=== PATIENT | female | born 1965 | race Caucasian/White ===

== ENCOUNTER 2024-11-19 13:15 | Outpatient (AMB) | payer MEDICARE, SELFPAY ==
--- NOTE | 2024-11-19 13:19 | A.OFFVIS_ITS ---
Vital Signs 11/19/24 13:20 Height 5 ft 5 in Weight 157 lb 8 oz BMI 26.2 BP 122/66 Blood Pressure Location Rt brachial Position Sitting Pulse 87 Pulse Source Pulse Oximeter Pulse Oximetry (%) 98 Oxygen Delivery Method Room Air Intake Visit Reasons: Lupus Allergies No Known Allergies Allergy (Verified 11/19/24 13:22) HPI HPI Lupus: Details: HX of uterine cancer s/p upper vaginectomy+hysterectomy, chemo over a year ago. She has been HPV positive in the past but reports that most recent Pap tests of the vagina have been negative. 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 Mammogram 02/2024 Colonscopy 02/2024 She feels well. Denies fevers, rash, Raynaud's, dyspnea, pleurisy, urinary symptoms, joint symptoms. She recently was experiencing GERD symptoms and has been on a regimen prescribed by PCP with benefit. She will be seeing GI for EGD. She was recently diagnosed with osteopenia and has been referred to a specialist. [facility] Medical History (Updated 11/19/24 @ 14:11 by Jesus Manuel Calvillo MD) Cancer Lupus (systemic lupus erythematosus) Surgical History Hx of hysterectomy Hx of tonsillectomy Review of Systems Const All systems reviewed & are unremarkable except as noted in HPI and below Physical Exam Vital Signs: Last Vital Signs Pulse 87 11/19/24 13:20 BP 122/66 11/19/24 13:20 Pulse Ox 98 11/19/24 13:20 Oxygen Delivery Method Room Air 11/19/24 13:20 BMI result Body Mass Index 26.2 Const Other: General: Comfortable CVS: RRR Respiratory: clear to auscultation bilaterally. Good respiratory effort Skin: No lesions seen MSK: No tenderness. No synovitis. Good range of upper extremities and lower extremities. Assessment & Plan Assessment & Plan (1) Lupus (systemic lupus erythematosus): Comment: Previously treated with Imuran, which was discontinued when she was diagnosed with uterine cancer. Subsequently she had upper vaginectomy and hysterectomy status post chemotherapy. She is doing well. Code(s): M32.9 - Systemic lupus erythematosus, unspecified Category: Medical Plan: Labs for disease monitoring ordered Return to clinic in 3 months To discuss importance of having a regular exercise routine. I also discussed adding weight-bearing exercises to her exercise routine as she has a new diagnosis of osteopenia. I am requesting medical records [facility] Orders: Orders Complete Blood Count Auto Diff Today Z79.60 - exterminator (current) use of unspecified immunomodulators and immunosuppressants UA CC w/rflx Micro + Cult Today M32.9 - Systemic lupus erythematosus, unspecified Creatinine Today Z79.60 - residential (current) use of unspecified immunomodulators and immunosuppressants Alanine Aminotransferase Today Z79.60 - residential (current) use of unspecified immunomodulators and immunosuppressants Aspartate Amino Transferase Today Z79.60 - exterminator (current) use of unspecified immunomodulators and immunosuppressants ANDRADE Reflex Titer and Pattern Today M32.9 - Systemic lupus erythematosus, unspecified Anti DNA DS Antibody Today M32.9 - Systemic lupus erythematosus, unspecified Anti Extractable Nuclear Ag Today M32.9 - Systemic lupus erythematosus, unspecified C Reactive Protein Today M32.9 - Systemic lupus erythematosus, unspecified Erythrocyte Sedimentation Rate Today M32.9 - Systemic lupus erythematosus, unspecified Protein Creatinine Ratio, Ur Today M32.9 - Systemic lupus erythematosus, unspecified Complement C3 Today M32.9 - Systemic lupus erythematosus, unspecified Complement C4 Today M32.9 - Systemic lupus erythematosus, unspecified Coding Level of Care Code Est Pt Level 4 (42209) Complex EM visit Add On G2211 Diagnoses Lupus (systemic lupus erythematosus) M32.9
[2024-11-19 13:20] VITALS: BP 122/66; PULSE 87; O2SAT 98; BMI 26.2
== END 2024-11-19 13:58 | disposition home or self-care (01) ==
PROVIDERS: Visit Provider Internal Medicine Rheumatology
DX: M32.9 Systemic lupus erythematosus, unspecified (principal)
CPT/HCPCS: 99214; G2211

== ENCOUNTER 2024-11-19 13:15 | Outpatient (REF) | payer MEDICARE, SELFPAY ==
[2024-11-19 18:00] LABS: MANUAL DIFF FLAG NO
[2024-11-19 18:07] LABS: Basophils Percent Auto 0.7 % (0-2); Eosinophils Absolute Auto 0.6 X10*3/uL (0.0-0.4); Eosinophils Percent Auto 11.2 % (0-4); Hematocrit 39.5 % (37.0-47.0); Hemoglobin 13.3 g/dl (12.0-16.0); Imm Gran Abs Auto 0.07 X10*3/uL (0.00-0.03); Imm Gran Pct Auto 1.3 % (0.0-0.4); Lymphocytes Absolute Auto 1.5 X10*3/uL (1.2-4.9); Lymphocytes Percent Auto 28.3 % (20-40); Mean Corpuscular HGB Conc 33.7 g/dl (31.0-35.0); Mean Corpuscular Hemoglobin 31.4 pg (27.0-33.0); Mean Corpuscular Volume 93.2 fL (80.0-98.0); Mean Platelet Volume 10.9 fL (9.4-12.3); Monocytes Absolute Auto 0.6 X10*3/uL (0.1-1.2); Monocytes Percent Auto 10.3 % (2-11); Neutrophils Absolute Auto 2.6 x10*3/uL (2.0-8.3); Neutrophils Percent Auto 48.2 % (45-73); Platelet Count 284 X10*3/uL (160-400); Red Blood Count 4.24 X10*6/uL (4.20-5.50); Red Cell Distribution Width 12.8 % (11.0-16.0); White Blood Count 5.3 X10*3/uL (4.8-10.8)
[2024-11-19 18:18] LABS: Appearance Urine Clear; Color Urine Dark Yellow; Glucose Urine UA Negative (Negative); Leukocyte Esterase Urine Trace (Negative); Nitrite Urine Negative (Negative); Specific Gravity - Urine >= 1.030 (1.005-1.025); UMIC TRIGGER UACC YES; Urine Blood Negative (Negative); Urine Ketones Trace mg/dL (Negative); Urine Protein Negative (Neg-Trace)
[2024-11-19 18:21] LABS: Bacteria Urine None Seen (None Seen); Hyaline Casts Urine 0-2 /LPF (0-2); RBC Urine 0-2 /HPF (0-2); Squamous Epithelial Cell Urine 0-2 /HPF (0-2); WBC Urine 0-5 /HPF (0-5)
[2024-11-19 18:31] LABS: Alanine Aminotransferase 37 U/L (0-31); Aspartate Amino Transferase 37 U/L (5-31); C Reactive Protein < 0.10 mg/dL (< or = 0.50); Estimated Glomerular Filt Rate > 60
[2024-11-19 18:43] LABS: Creatinine Urine 235.78 mg/dL; Protein/Creatinine Ratio, Ur 0.07 (<0.2); Total Protein Urine Random 16 mg/dL (<12)
[2024-11-19 19:24] LABS: Erythrocyte Sedimentation Rate 7 MM/HR (0-20)
[2024-11-20 20:09] LABS: Complement C3 136 mg/dL (83-193)
[2024-11-22 15:39] LABS: Anti Nuclear Antibody Pattern Nuclear, Speckled; Anti Nuclear Antibody Screen POSITIVE (NEGATIVE)
[2024-11-22 17:28] LABS: Anti DNA DS Antibody <1 IU/mL; SM/Ribonucleoprotein Ab <1.0 NEG AI (<1.0 NEG); Smith Protein <1.0 NEG AI (<1.0 NEG)
== END 2024-11-19 13:16 | disposition home or self-care (01) ==
LOC: HO.HKASLDS 13:15
PROVIDERS: Visit Provider Internal Medicine Rheumatology
DX: M32.9 Systemic lupus erythematosus, unspecified (principal); Z85.42 Personal history of malignant neoplasm of other parts of uterus; Z90.710 Acquired absence of both cervix and uterus; Z92.21 Personal history of antineoplastic chemotherapy
CPT/HCPCS: 36415; 81001; 82565; 82570; 84156; 84450; 84460; 85025; 85652; 86038; 86039; 86140; 86160; 86225; 86235; 99212

== ENCOUNTER 2025-02-18 13:02 | Outpatient (REF) | payer MEDICARE, SELFPAY ==
--- OUTSIDE RECORDS SUMMARY | 2025-02-18 17:10 | XMS_ITS | Encounter Summary ---
Author Organization [facility] Address [address] [place] [address] Care Team Providers Care Steward/Stewardess Room Name Role Phone Margy Martinez Primary Care Provider [phone]- [phone] Ruth Diaz MD Unavailable Genesis Traore RN Unavailable Encounter Details Date Type Department Care Team (Late st Contact Info) Description 04/03/2023 Scanned Document [facility] Radiation Oncology [address] [place] [phone] Marcin Avila MD [address] [place] [phone] Social History Tobacco Use Types Packs/Day [...] Description 03/17/2025 1:40 PM EDT Office Visit [facility] Division of Gynecologic Oncology in [place] 85 [facility] [address]05 [place] [address] Martina Nelson MD [address] [facility] [place] [address] [place] [address] documented as of this encounter Visit Diagnoses Not on filedocumented in this encounter Care Teams Steward/Stewardess Room Relationship Specialty Start Date End Date Margy Martinez PA PCP - General 02/15/21 Ruth Diaz MD [address] [place] [address] Obstetrics and Gynecology 12/05/22 Genesis Traore, CELIA 85 [facility] [address] [place] [address] Oncology Nurse Navigator Medical Oncology 02/17/23 Jesus Manuel Calvillo Clinician Rheumatology 12/06/22 documented as of this encounter
--- OUTSIDE RECORDS SUMMARY | 2025-02-18 17:10 | XMS_ITS | Encounter Summary ---
Author Organization [facility] Address [address] [place] [address] Care Team Providers Care Rabble Furnace Tender Name Role Phone Margy Martinez Primary Care Provider [phone]- [phone] Ruth Diaz MD Unavailable Genesis Traore RN Unavailable Encounter Details Date Type Department Care Team (Late st Contact Info) Description 05/01/2023 Scanned Document [facility] Radiation Oncology [address] [place] [phone] Marcin Avila MD [address] [place] [phone] Social History Tobacco Use Types Packs/Day [...] 1:40 PM EDT Office Visit [facility] Division of Gynecologic Oncology in [place] 85 [facility] [address] [place] [address] Martina Nelson MD 85 [facility] 7[address] [place] [address] documented as of this encounter Visit Diagnoses Not on filedocumented in this encounter Care Teams Rabble Furnace Tender Relationship Specialty Start Date End Date Margy Martinez PA PCP - General 02/15/21 Ruth Diaz MD [address] [place] [address] Obstetrics and Gynecology 12/05/22 Genesis Traore, CELIA 85 [facility] [address] [place] [address] Oncology Nurse Navigator Medical Oncology 02/17/23 Jesus Manuel Calvillo Clinician Rheumatology 12/06/22 documented as of this encounter
--- OUTSIDE RECORDS SUMMARY | 2025-02-18 17:10 | XMS_ITS | Clinical Summary ---
Author Organization [facility] Address [address] [place] [address] Care Team Providers Care Dough Sheeter Name Role Phone Margy Martinez NP Primary Care Provider [phone] Allergies Active Allergy Reactions Criticality Noted Date [...] (one) time each day. 020 Active omega 4-nkm-wpn-fish oil 1,000 mg (120 mg-180 mg) capsule [...] other organ involvement, unspecified SLE type (CMS/HCC) ([facility]),Sjogren's syndrome with keratoconjunctivitis sicca ([facility]) Take 1 tablet (50 mg total) by mouth 1 (one) time each day. 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
--- OUTSIDE RECORDS SUMMARY | 2025-02-18 17:10 | XMS_ITS | Encounter Summary ---
Author Organization [facility] Address [address] [place] [address] Care Team Providers Care Stonecutter Hand Name Role Phone Margy Martinez Primary Care Provider [phone]- [phone] Ruth Diaz MD Unavailable Genesis Traore RN Unavailable Encounter Details Date Type Department Care Team (Late st Contact Info) Description 04/17/2023 Scanned Document [facility] Radiation Oncology [address] [place] [phone] Marcin Avila MD [address] [place] [phone] Social History Tobacco Use Types Packs/Day [...] Description 03/17/2025 1:40 PM EDT Office Visit [facility] Division of Gynecologic Oncology in [place] 85 [facility] 705 [place] [address] Martina Nelson MD 85 [facility] [address] [place] [address] documented as of this encounter Visit Diagnoses Not on filedocumented in this encounter Care Teams Stonecutter Hand Relationship Specialty Start Date End Date Margy Martinez PA PCP - General 02/15/21 Ruth Diaz MD [address] [place] [address] Obstetrics and Gynecology 12/05/22 Genesis Traore, CELIA 85 [facility] Ja [address] [place] [address] Oncology Nurse Navigator Medical Oncology 02/17/23 Jesus Manuel Calvillo Clinician Rheumatology 12/06/22 documented as of this encounter
--- OUTSIDE RECORDS SUMMARY | 2025-02-18 17:10 | XMS_ITS | Encounter Summary ---
Author Organization [facility] Address [address] [place] [address] Care Team Providers Care Automotive Heavy Mechanic Name Role Phone Margy Martinez Primary Care Provider [phone]- [phone] Ruth Diaz MD Unavailable [phone] Genesis Traore RN Unavailable Reason for Visit * Reason Comments Appointment Encounter Details Date Type Department Care Team (Late st Contact Info) Description 12/30/2022 Telephone [facility] [place] 85 [facility] [address] [place] [address] Provider, Generic Appointment Social History [...] Description 03/17/2025 1:40 PM EDT Office Visit [facility] Division of Gynecologic Oncology in [place] 85 [facility] [address] [place] [phone] Chris Nelson MD 85 [facility] [address] [place] [address] documented as of this encounter Visit Diagnoses Not on filedocumented in this encounter Care Teams Automotive Heavy Mechanic Relationship Specialty Start Date End Date Margy Martinez PA PCP - General 02/15/21 Ruth Diaz MD [address] [place] [address] Obstetrics and Gynecology 12/05/22 Genesis Traore RN 85 [facility] Ja [address] [place] [address] Oncology Nurse Navigator Medical Oncology 02/17/23 Jesus Manuel Calvillo Clinician Rheumatology 12/06/22 documented as of this encounter
--- OUTSIDE RECORDS SUMMARY | 2025-02-18 17:10 | XMS_ITS | Encounter Summary ---
Author Organization [facility] Address [address] [place] [address] Care Team Providers Care Neighborhood Planner Name Role Phone Margy Martinez Primary Care Provider [phone] Ruth Diaz MD Unavailable Genesis Traore RN Unavailable Encounter Details Date Type Department Care Team ([facility] Contact Info) Description 02/14/2021 Prep for Surgery OBGYN IP [address] [place] [address] Jose Lawler MD 20 [facility] [address] [place] [address] Social History Tobacco Use Types Packs/Day Years [...] Description 03/17/2025 1:40 PM EDT Office Visit [facility] Division of Gynecologic Oncology in [place] 85 [facility] [address] [place] [phone] Chris Nelson MD 85 [facility] [address] [place], [place] [phone] documented as of this encounter Visit Diagnoses Not on filedocumented in this encounter Care Teams Neighborhood Planner Relationship Specialty Start Date End Date Margy Martinez PA PCP - General 02/15/21 Ruth Diaz MD [address] [place] [address] [place] [address] Obstetrics and Gynecology 12/05/22 Genesis Traore RN 85 [facility] [address] [place] [address] Oncology Nurse Navigator Medical Oncology 02/17/23 Jesus Manuel Calvillo Clinician Rheumatology 12/06/22 documented as of this encounter
--- OUTSIDE RECORDS SUMMARY | 2025-02-18 17:10 | XMS_ITS | Encounter Summary ---
Author Organization [facility] Address [address] [place] [address] Care Team Providers Care Welding Rod Coater Name Role Phone Margy Martinez Primary Care Provider [phone]- [phone] Ruth Diaz MD Unavailable Genesis Traore RN Unavailable Encounter Details Date Type Department Care Team (Late st Contact Info) Description 05/05/2023 Scanned Document [facility] Radiation Oncology [address] [place] [phone] Marcin Avila MD [address] [place] [phone] Social History Tobacco Use Types Packs/Day [...] Description 03/17/2025 1:40 PM EDT Office Visit [facility] Division of Gynecologic Oncology in [place] 85 [facility] 705 [place] [address] Martina Nelson MD 85 [facility] 705 [place] [address] documented as of this encounter Visit Diagnoses Not on filedocumented in this encounter Care Teams Welding Rod Coater Relationship Specialty Start Date End Date Margy Martinez PA PCP - General 02/15/21 Ruth Diaz MD [address] [place] [address] Obstetrics and Gynecology 12/05/22 Genesis Traore, CELIA 85 [facility] Ja [address] [place] [address] Oncology Nurse Navigator Medical Oncology 02/17/23 Jesus Manuel Calvillo Clinician Rheumatology 12/06/22 documented as of this encounter
--- OUTSIDE RECORDS SUMMARY | 2025-02-18 17:10 | XMS_ITS | Encounter Summary ---
Author Organization [facility] Address [address] [place] [address] Care Team Providers Care Electronic Scale Tester Name Role Phone Margy Martinez Primary Care Provider [phone]- [phone] Ruth Diaz MD Unavailable Genesis Traore RN Unavailable Encounter Details Date Type Department Care Team (Late st Contact Info) Description 04/11/2023 Scanned Document [facility] Radiation Oncology [address] [place] [phone] Marcin Avila MD [address] [place] [phone] Social History Tobacco Use Types Packs/Day [...] Description 03/17/2025 1:40 PM EDT Office Visit [facility] Division of Gynecologic Oncology in [place] 85 [facility] 705 [place] [address] Martina Nelson MD 85 [facility] 705 [place] [address] documented as of this encounter Visit Diagnoses Not on filedocumented in this encounter Care Teams Electronic Scale Tester Relationship Specialty Start Date End Date Margy Martinez PA PCP - General 02/15/21 Ruth Diaz MD [address] [place] [address] Obstetrics and Gynecology 12/05/22 Genesis Traore, CELIA 85 [facility] Ja [address] [place] [address] Oncology Nurse Navigator Medical Oncology 02/17/23 Jesus Manuel Calvillo Clinician Rheumatology 12/06/22 documented as of this encounter
--- OUTSIDE RECORDS SUMMARY | 2025-02-18 17:10 | XMS_ITS | Encounter Summary ---
Author Organization [facility] Address [address] [place] [address] Care Team Providers Care High School Combination Teacher Name Role Phone Margy Martinez Primary Care Provider [phone]- [phone] Ruth Diaz MD Unavailable Genesis Traore RN Unavailable Encounter Details Date Type Department Care Team (Late st Contact Info) Description 11/04/2022 Scanned Document [facility] Division of Gynecologic Oncology in [address] [place] [phone] Ruth Diaz MD [address] [place] [address] Social History Tobacco Use Types Packs/Day Years [...] Description 03/17/2025 1:40 PM EDT Office Visit [facility] Division of Gynecologic Oncology in [address] [place] [phone] Chris Nelson MD 85 [facility] [address] [place] [address] documented as of this encounter Visit Diagnoses Not on filedocumented in this encounter Care Teams High School Combination Teacher Relationship Specialty Start Date End Date Margy Martinez PA PCP - General 02/15/21 Ruth Diaz MD [address] [place] [address] [address] [place] [address] Obstetrics and Gynecology 12/05/22 Genesis Traore RN 85 [facility] [address] [place] [address] Oncology Nurse Navigator Medical Oncology 02/17/23 Jesus Manuel Calvillo Clinician Rheumatology 12/06/22 documented as of this encounter
--- OUTSIDE RECORDS SUMMARY | 2025-02-18 17:10 | XMS_ITS | Encounter Summary ---
Author Organization [facility] Address [address] [place] [address] Care Team Providers Care Electrical Systems Engineer Name Role Phone Margy Martinez Primary Care Provider [phone]- [phone] Ruth Diaz MD Unavailable Genesis Traore RN Unavailable Encounter Details Date Type Department Care Team ([facility] st Contact Info) Description 12/13/2022 Scanned Document [facility] Division of Gynecologic Oncology in [place] [address] [phone] Chris Nelson MD [address] [phone] Social History Tobacco Use Types Packs/Day Years [...] Description 03/17/2025 1:40 PM EDT Office Visit [facility] Division of Gynecologic Oncology in [place] 85 [facility] 705 [place] [address] Chris Nelson MD 85 [facility] [address] [place] [address] documented as of this encounter Visit Diagnoses Not on filedocumented in this encounter Care Teams Electrical Systems Engineer Relationship Specialty Start Date End Date Margy Martinez PA PCP - General 02/15/21 Ruth Diaz MD [address] [place] [address] [address] [place] [address] Obstetrics and Gynecology 12/05/22 Genesis Traore, CELIA 85 [facility] Ja [address] [place] [address] Oncology Nurse Navigator Medical Oncology 02/17/23 Jesus Manuel Calvillo Clinician Rheumatology 12/06/22 documented as of this encounter
--- OUTSIDE RECORDS SUMMARY | 2025-02-18 17:10 | XMS_ITS | Encounter Summary ---
Author Organization [facility] Address [address] [place] [address] Care Team Providers Care Director Medicare Sales Name Role Phone Margy Martinez NP Primary Care Provider [phone] Reason for Visit * Reason Comments Med Refill Encounter Details Date Type Department Care Team (Latest Contact Info) Description 05/29/2023 Refill [facility] Rheumatology [address] [phone] Zack Larson, DO PhD [address] [place] [address] Systemic lupus erythematosus with other organ involvement, [...] (HCC) documented in this encounter Care Teams Director Medicare Sales Relationship Specialty Start Date End Date Margy Martinez NP [address] [place] [address] PCP - General 03/17/20 documented as of this encounter
--- OUTSIDE RECORDS SUMMARY | 2025-02-18 17:10 | XMS_ITS | Clinical Summary ---
Author Organization [facility] [place] Address [address] [place] [address] Care Team Providers Care Hobbing Machine Operator Name Role Phone Leigha Mazariegos Primary Care Provider [phone] Allergies Active Allergy Reactions Criticality Noted Date [...] Type Department Care Team Description 01/16/2025 Telephone [facility] [place] [address] [place] [address] Jose F Koenig DO 12/31/2024 11:40 AM EST Office Visit [facility] [place] [address] [place] [phone] Jose F Koenig, Gastro-esophageal reflux disease without [...] (FluMist) 2yo to less than 50yo 09/09/2022 kooldiner SARS-CoV-2 COVID-19, mRNA, LNP-S, preservative free 01/19/2021,12/29/2020 [...] hx polyps; Surgeon: Prince Gray MD; Location: [facility]; Service: Gastroenterology; Laterality: N/A; Medical History [...] Health Maintenance Results * Depression Screening (10/04/2023) [facility] Depression Screening abstracted Result [facility] HEALTH MAINTENANCE Final Result * Annual BMP Blood Test (09/27/2023) [facility] Annual BMP Blood Test abstracted Result [facility] HEALTH MAINTENANCE Final Result * Hepatitis C Screening (09/27/2023) [facility] Hepatitis C Screening abstracted Result [facility] Provider HEALTH MAINTENANCE Final Result * Lipid panel (10/03/2022) [facility] LDL/HDL Ratio 2 <=5 Triglycerides 68 <=150 mg/dL Cholesterol 193 <=200 mg/dL HDL 91 >=50 mg/dL LDL Cholesterol 87 <=100 mg/dL Blood Venous blood specimen / Unknown Result [facility] Provider LAB BLOOD ORDERABLES Patti l Result * Cervical Cancer Screening: HPV (09/20/2022) [facility] Cervical Cancer Screening: HPV no interpretation , abstracted Result [facility] Provider HEALTH MAINTENANCE Final Result * Colonoscopy (12/14/2020) [facility] Colonoscopy no interpretation , abstracted Anatomical Region Laterality Modality Other [facility] Provider HEALTH MAINTENANCE Final Result * MAMMOGRAM [...] your patient to us, James Monroe MD [id number] (Electronically Signed - 12/28/2018 09:18) Copy: CYNTHIA MORROW MD [facility] [address] [facility] [address] [facility] [address] [place] [address] LEIGHA MAZARIEGOS PA-C [facility] [address] [place] [address] Procedure Note Historical, Radiology Results, [...] your patient to us, James Monroe MD [id number] (Electronically Signed - 12/28/2018 09:18) Copy: CYNTHIA MORROW MD [facility] 20 [facility] [address] [place] [address] LEIGHA MAZARIEGOS PA-C [facility] [address] [place] [address] us Radiology Results Historical IMDeric BI PROCEDURE S Final Result from Last 3 Months or Most Recently Relevant to Health Maintenance Insurance [place]ICARE [place] Care Teams Hobbing Machine Operator Relationship Specialty Start Date End Date Leigha Mazariegos PA [address] [place] [address] PCP - General Physician Inventory Analyst 05/18/15
--- OUTSIDE RECORDS SUMMARY | 2025-02-18 17:10 | XMS_ITS | Encounter Summary ---
Author Organization [facility] Address [address] [place] [address] Care Team Providers Care Latcher Name Role Phone Margy Martinez Primary Care Provider [phone]- [phone] Ruth Diaz MD Unavailable Genesis Traore RN Unavailable Reason for Visit * Reason Comments Med Change Request Encounter Details Date Type Department Care Team (Late st Contact Info) Description 03/27/2023 Refill [facility] [address] [phone] Prince Armstrong MD [address] [address] Hemorrhoids, unspecified hemorrhoid type (Primary Dx); Rectal [...] Description 03/17/2025 1:40 PM EDT Office Visit [facility] Division of Gynecologic Oncology in [place] [address] [phone] Martina Nelson MD [address] [address] documented as of this encounter Visit Diagnoses Diagnosis Hemorrhoids, unspecified hemorrhoid type- Primary Rectal bleeding Hemorrhage of rectum and anus documented in this encounter Care Teams Latcher Relationship Specialty Start Date End Date Margy Martinez PA PCP - General 02/15/21 Ruth Diaz MD [address] [place] [address] Obstetrics and Gynecology 12/05/22 Genesis Traore, CELIA [address] [address] Oncology Nurse Navigator Medical Oncology 02/17/23 Jesus Manuel Calvillo Clinician Rheumatology 12/06/22 documented as of this encounter
--- OUTSIDE RECORDS SUMMARY | 2025-02-18 17:10 | XMS_ITS | Encounter Summary ---
Author Organization [facility] Address [address] [place] [address] Care Team Providers Care Network Liaison Name Role Phone Margy Martinez Primary Care Provider [phone]- [phone] Ruth Diaz MD Unavailable Genesis Traore RN Unavailable Encounter Details Date Type Department Care Team (Late st Contact Info) Description 05/15/2023 Scanned Document [facility] Radiation Oncology [address] [place] [phone] Marcin Avila MD [address] [place] [phone] Social History Tobacco Use Types Packs/Day [...] Description 03/17/2025 1:40 PM EDT Office Visit [facility] Division of Gynecologic Oncology in [place] 85 [facility] 7[address] [place] [address] Martina Nelson MD 85 [facility] [address] [place] [address] documented as of this encounter Visit Diagnoses Not on filedocumented in this encounter Care Teams Network Liaison Relationship Specialty Start Date End Date Margy Martinez PA PCP - General 02/15/21 Ruth Diaz MD [address] [place] [address] Obstetrics and Gynecology 12/05/22 Genesis Traore, CELIA 85 [facility] [address] [place] [address] Oncology Nurse Navigator Medical Oncology 02/17/23 Jesus Manuel Calvillo Clinician Rheumatology 12/06/22 documented as of this encounter
--- OUTSIDE RECORDS SUMMARY | 2025-02-18 17:10 | XMS_ITS | Encounter Summary ---
Author Organization [facility] Address [address] [place] [address] Care Team Providers Care Railroad Car Cleaner Name Role Phone Margy Martinez Primary Care Provider [phone]- [phone] Ruth Diaz MD Unavailable [phone] Genesis Traore RN Unavailable Encounter Details Date Type Department Care Team (Late st Contact Info) Description 04/24/2023 Scanned Document [facility] Radiation Oncology [address] [place] [phone] Marcin Avila MD [address] [place] [phone] Social History Tobacco Use Types Packs/Day [...] 1:40 PM EDT Office Visit [facility] Division of Gynecologic Oncology in [place] 85 [facility] [address] [place] [address] Martina Nelson MD 85 [facility] [address] [place] [address] documented as of this encounter Visit Diagnoses Not on filedocumented in this encounter Care Teams Railroad Car Cleaner Relationship Specialty Start Date End Date Margy Martinez PA PCP - General 02/15/21 Ruth Diaz MD [address] [place] [address] Obstetrics and Gynecology 12/05/22 Genesis Traore, CELIA 85 [facility] [address] [place] [address] Oncology Nurse Navigator Medical Oncology 02/17/23 Jesus Manuel Calvillo Clinician Rheumatology 12/06/22 documented as of this encounter
--- OUTSIDE RECORDS SUMMARY | 2025-02-18 17:10 | XMS_ITS | Encounter Summary ---
Author Organization [facility] Address [address] [place] [address] Care Team Providers Care Legal Writing Professor Name Role Phone Margy Martinez NP Primary Care Provider [phone] Reason for Visit * Reason Comments Med Refill Encounter Details Date Type Department Care Team (Latest Contact Info) Description 12/31/2022 Refill [facility] [place] [address] Zack Larson, DO PhD [address] [place] [address] Systemic lupus erythematosus with other organ involvement, [...] Primary Sjogren's syndrome with keratoconjunctivitis sicca ([facility]) documented in this encounter Care Teams Legal Writing Professor Relationship Specialty Start Date End Date Margy Martinez NP [address] [place] [address] 6 [place] [address] PCP - General 03/17/20 documented as of this encounter
--- OUTSIDE RECORDS SUMMARY | 2025-02-18 17:10 | XMS_ITS | Encounter Summary ---
Author Organization [facility] Address [address] [place] [address] Care Team Providers Care Retail Field Representative Name Role Phone Margy Martinez Primary Care Provider [phone]- [phone] Ruth Diaz MD Unavailable Genesis Traore RN Unavailable Encounter Details Date Type Department Care Team (Late st Contact Info) Description 05/12/2023 Scanned Document [facility] Radiation Oncology [address] [place] [phone] Marcin Avila MD [address] [place] [phone] Social History Tobacco Use Types Packs/Day [...] [facility] Division of Gynecologic Oncology in [place] 85 [facility] 705 [place] [address] Martina Nelson MD 85 [facility] 7[address] [place] [address] documented as of this encounter Visit Diagnoses Not on filedocumented in this encounter Care Teams Retail Field Representative Relationship Specialty Start Date End Date Margy Martinez PA PCP - General 02/15/21 Ruth Diaz MD [address] [place] [address] Obstetrics and Gynecology 12/05/22 Genesis Traore, CELIA 85 [facility] [address] [place] [address] Oncology Nurse Navigator Medical Oncology 02/17/23 Jesus Manuel Calvillo Clinician Rheumatology 12/06/22 documented as of this encounter
--- OUTSIDE RECORDS SUMMARY | 2025-02-18 17:10 | XMS_ITS | Encounter Summary ---
Author Organization [facility] Address [address] [place] [address] Care Team Providers Care High Court Justice Name Role Phone Margy Martinez Primary Care Provider [phone]- [phone] Ruth Diaz MD Unavailable Genesis Traore RN Unavailable Encounter Details Date Type Department Care Team (Late st Contact Info) Description 05/08/2023 Scanned Document [facility] Radiation Oncology [address] [place] [phone] Marcin Avila MD [address] [place] [phone] Social History Tobacco Use Types Packs/Day [...] Description 03/17/2025 1:40 PM EDT Office Visit [facility] Division of Gynecologic Oncology in [place] 85 [facility] 7[address] [place] [address] Martina Nelson MD 85 [facility] [address] [place] [address] documented as of this encounter Visit Diagnoses Not on filedocumented in this encounter Care Teams High Court Justice Relationship Specialty Start Date End Date Margy Martinez PA PCP - General 02/15/21 Ruth Diaz MD [address] [place] [address] Obstetrics and Gynecology 12/05/22 Genesis Traore, CLEIA 85 [facility] [address] [place] [address] Oncology Nurse Navigator Medical Oncology 02/17/23 Jesus Manuel Cavlillo Clinician Rheumatology 12/06/22 documented as of this encounter
--- OUTSIDE RECORDS SUMMARY | 2025-02-18 17:11 | XMS_ITS | Clinical Summary ---
Author Organization [facility] Address [address] [place] [address] Care Team Providers Care Sulfur Chloride Operator Name Role Phone Margy Martinez Primary Care Provider [phone]- [phone] Ruth Diaz MD Unavailable [phone] Genesis Traore RN Unavailable Allergies Active Allergy [...] (25 mg total) by mouth nightly. Active Hunter 3 1000 MG Cap capsule Take 1,000 [...] - 01/10/2025 11:59 PM EST Hospital Encounter [facility] Radiology [address] [place] [address] Fidel Waller PA-C Discharge Disposition: Home or Self Care 01/10/2025 12:38 PM EST - 01/10/2025 1:23 PM EST Hospital Encounter [facility] Radiology [address] [place] [address] Fidel Waller PA-C Vaginal cancer (HCC); Abnormal finding on imaging Discharge Disposition: Home or Self Care 12/24/2024 Telephone [facility] Division of Gynecologic Oncology in [address] [address] Fidel Waller PA-C 12/24/2024 Orders Only [facility] Division of Gynecologic Oncology in [address] [address] Fidel Waller PA-C Vaginal cancer (HCC) (Primary Dx); Abnormal finding on imaging 12/23/2024 Telephone [facility] Division of Gynecologic Oncology in [address] [place] [address] Martina Nelson MD Results Request 12/17/2024 10:20 AM EST Office Visit [facility] Division of Gynecologic Oncology in [address] [place] [address] Radha Diego APRN Semrau, Chelsea Jeanette, [...] Description 03/17/2025 1:40 PM EDT Office Visit [facility] Division of Gynecologic Oncology in [address] [place] [phone] Martina Nelson MD 85 [facility] 7[address] [place] [address] Health Maintenance Due Date Last Done Comments [...] III) Vaginal cancer (HCC) THINPREP PAP TEST (ELECTROMECHANISMS DESIGN DRAFTER) WITH HPV SCREEN Routine 12/17/2024 10:57 AM [...] EST) HPV mRNA E6/E7, Vaginal Not Detected [facility] Comment: REFERENCE RANGE: NOT DETECTED ? For women with a hysterectomy and previous history of cervical cancer or, with MINNIE 2 or higher within the last 20 years, screening with cytology every 3 years for 20 years after the initial post treatment surveillance period is reasonable. The role of HPV testing has not been clarified in this population. Methodology: Child Care Attendant-Mediated Amplification ? This assay detects E6/E7 viral messenger RNA (mRNA) from 14 high-risk HPV types (16,18,31,33,35,39,45,51, 52,56,58,59,66,68). ? The analytical performance characteristics of this assay have been determined by [facility] [place], [place]. The modifications have not been cleared or approved by the FDA. This assay has been validated pursuant to the CLIA regulations and is used for clinical purposes. ? For additional information please refer to http://education.Sola[employer].Elementum/faq/YRK426h6 (This link is being provided for informational/ educational purposes only.) ? 12/17/2024 10:5 7 AM EST 12/18/2024 2:08 AM EST Fidel Waller PA-C LAB AMB PAT H/CYTO ORDERABLES [facility] [address] [place] [address] * Test Authorization (12/17/2024 10:57 AM EST) Test(s) Ordered on Requisition HPV mRNA E6E7 POST HYST [facility] Test Code 93,136 [facility] Client Contact FIDEL Steiner [facility] Report Always Message Signature [facility] Comment: The laboratory testing on this patient was verbally requested or confirmed by the ordering physician or his or her authorized compliance representative dealer after contact with an employee of [facility]. Federal regulations require that we maintain on file written authorization for all laboratory testing. ??Accordingly we are asking that the ordering physician or his or her authorized compliance representative dealer sign a copy of this report and promptly return it to the client service professional. Signature: Comment [facility] Comment: Please fax this signed form to [phone]. Please do not attempt to return this document by other methods. Documents will not be viewed by a compliance representative dealer. Please do not use this fax number for other service requests. 12/17/2024 10:5 7 AM EST 12/18/2024 2:08 AM EST Fidel Angelika Waller PA-C HX LAB [facility] [address] [place] [address] * ThinPrep Pap Test (Toll Gate Keeper) with HPV Screen (12/17/2024 10:57 AM EST) Clinical Information [facility] Comment:H/O VAGINAL CANCER A ND VULVAR NEOP LMP: [facility] Comment:N/A Previous PAP: [facility] Comment:[id number] Previous Biopsy [facility] Comment:NONE GIVEN Source: [facility] Comment:Vagina Statement of Adequacy: [facility] Comment: Satisfactory for evaluation. Endocervical/transformation zone component present. Interpretation/Res ult: [facility] Comment: Cytology Results: Negative for intraepithelial lesion or malignancy. Comment: [facility] Comment: This Pap test has been evaluated with computer assisted technology. Spareribs Trimmer: D[facility] Comment: DCR, CT(ASCP) CT screening location: [address] ??[address] Pathologist: Neeraj [facility] Comment: Julia Centeno M.D., (electronic signature) [facility] [phone] Comment [facility] Comment: EXPLANATORY NOTE: The Pap is a [...] Hpv Mrna E6E7 Not Detected Not Detected [facility] Comment: Methodology: Child Care Attendant-Mediated Amplification This assay detects E6/E7 viral messenger RNA (mRNA) from 14 high-risk HPV types (16,18,31,33,35,39,45,51,52,56,58,59,66,68). Cervical sources are required for HPV testing. If a vaginal source from a patient who has had a total hysterectomy with removal of cervix was submitted, please contact the testing laboratory for alternative testing options. For additional information, please refer to http://education.GoldKey Resources/faq/TZW578l4 (This link if provided for information/ educational purposes only.) 12/17/2024 10:5 7 AM EST 12/18/2024 2:08 AM EST Fidel Waller PA-C LAB AMB PAT H/CYTO ORDERABLES [facility] [address] [place] [address] [facility] [address] [place] [phone] from Last 3 Months Advance Directives * Full Code (Latest Code Status on File) Date Activated Date Inactivated Comments 02/01/2023 8:53 AM 03/14/2023 8:04 AM * Full Code Date Activated Date Inactivated Comments 12/21/2022 8:22 AM 02/01/2023 8:13 AM * Full Code Date Activated Date Inactivated Comments 02/15/2021 6:09 AM 12/21/2022 7:30 AM Question Answer Comments Decision Thoroughly Discussed with: Patient Care Teams Sulfur Chloride Operator Relationship Specialty Start Date End Date Margy Martinez PA PCP - General 02/15/21 Ruth Diaz MD [address] [place], [place] [phone] Obstetrics and Gynecology 12/05/22 Genesis Traore RN [address] [place] [address] Oncology Nurse Navigator Medical Oncology 02/17/23 Jesus Manuel Calvillo Clinician Rheumatology 12/06/22
--- OUTSIDE RECORDS SUMMARY | 2025-02-18 17:11 | XMS_ITS | Encounter Summary ---
Author Organization [facility] Address [address] [place] [address] Care Team Providers Care Filter Tank Operator Name Role Phone Margy Martinez NP Primary Care Provider Reason for Visit * Reason Comments Med Refill Encounter Details Date Type Department Care Team (Latest Contact Info) Description 07/07/2021 Refill [facility] Rheumatology [address] [address] Zack Larson, DO PhD [address] [place] [address] Systemic lupus erythematosus with other organ involvement, [...] (HCC) documented in this encounter Care Teams Filter Tank Operator Relationship Specialty Start Date End Date Margy Martinez NP [address] [place] [address] PCP - General 03/17/20 documented as of this encounter
--- OUTSIDE RECORDS SUMMARY | 2025-02-18 17:11 | XMS_ITS | Encounter Summary ---
Author Organization [facility] Address [address] [place] [address] Care Team Providers Care Microbiology Coordinator Name Role Phone Margy Martinez Primary Care Provider [phone]- 000-0000 Ruth Diaz MD Unavailable Genesis Traore RN Unavailable Encounter Details Date Type Department Care Team (Late st Contact Info) Description 05/17/2023 Scanned Document [facility] Radiation Oncology [address] [place] [phone] Marcin Avila MD [address] [place] [phone] Social History Tobacco Use Types Packs/Day [...] Description 03/17/2025 1:40 PM EDT Office Visit [facility] Division of Gynecologic Oncology in [place] [address] [facility] [address] [place] [address] Martina Nelson MD 85 [facility] [address] [place] [address] documented as of this encounter Visit Diagnoses Not on filedocumented in this encounter Care Teams Microbiology Coordinator Relationship Specialty Start Date End Date Margy Martinez PA PCP - General 02/15/21 Ruth Diaz MD [address] [place] [address] Obstetrics and Gynecology 12/05/22 Genesis Traore, CELIA 85 [facility] [address] [place] [address] Oncology Nurse Navigator Medical Oncology 02/17/23 Jesus Manuel Calvillo Clinician Rheumatology 12/06/22 documented as of this encounter
--- OUTSIDE RECORDS SUMMARY | 2025-02-18 17:11 | XMS_ITS ---
Author Organization [facility] Address [address] [place] [address] Care Team Providers Care Powder Guard Name Role Phone Margy Martinez Primary Care Provider [phone]- 000-0000 Ruth Diaz MD Unavailable Genesis Traore RN Unavailable Active Problems Problem [...]
--- OUTSIDE RECORDS SUMMARY | 2025-02-18 17:11 | XMS_ITS | Encounter Summary ---
Author Organization [facility] Address [address] [place] [address] Care Team Providers Care Boom Cat Operator Name Role Phone Margy Martinez Primary Care Provider [phone]- 000-0000 Ruth Diaz MD Unavailable Genesis Traore RN Unavailable Encounter Details Date Type Department Care Team (Late st Contact Info) Description 03/16/2023 Scanned Document [facility] Radiation Oncology [address] [place] [phone] Provider, Generic Social History Tobacco Use Types [...] Description 03/17/2025 1:40 PM EDT Office Visit [facility] Division of Gynecologic Oncology in [place] 85 [facility] [address] [place] [phone] Chris Nelson MD 85 [facility] [address] [place] [address] documented as of this encounter Visit Diagnoses Not on filedocumented in this encounter Care Teams Boom Cat Operator Relationship Specialty Start Date End Date Margy Martinez PA PCP - General 02/15/21 Ruth Diaz MD [address] [place] [address] Obstetrics and Gynecology 12/05/22 Genesis Traore, RN 85 [facility] Ja [address] [place] [address] Oncology Nurse Navigator Medical Oncology 02/17/23 Jesus Manuel Calvillo Clinician Rheumatology 12/06/22 documented as of this encounter
--- OUTSIDE RECORDS SUMMARY | 2025-02-18 17:11 | XMS_ITS | Clinical Summary ---
Author Organization [facility] Address [address] [place] [address] Care Team Providers Care Home Appliances Mechanic Name Role Phone Margy Martinez PA-C Primary Care Provider [phone] Allergies Active Allergy Reactions Criticality Noted Date [...] (325 mg total) by mouth. 0 Active Blackstone-3 Fatty Acids (Fish Oil) 1000 MG CAPS [...] Advance Directives For more information, please contact: [phone] Latest Code Status on File Code Status Date Activated Date Inactivated Comments Full Code 09/07/2015 11:32 AM 09/07/2015 6:36 PM Th is code status was ascertained in the following way: discussion with patient. Care Teams Home Appliances Mechanic Relationship Specialty Start Date End Date Margy Martinez PA-C PCP - General Physician Senior Vice President & General Counsel 05/18/15
--- OUTSIDE RECORDS SUMMARY | 2025-02-18 17:11 | XMS_ITS | Encounter Summary ---
Author Organization [facility] Address [address] [place] [address] Care Team Providers Care Spooling Operator Name Role Phone Margy Martinez Primary Care Provider +1-000- [phone] Ruth Diaz MD Unavailable [phone] Genesis Traore RN Unavailable Encounter Details Date Type Department Care Team (Late st Contact Info) Description 06/22/2023 Scanned Document [facility] Radiation Oncology [address] [place] [phone] Marcin Avila MD [address] [place] [phone] Social History Tobacco Use Types Packs/Day [...] Upcoming Encounters Date Type Department Care Team ([facility] st Contact Info) Description 03/17/2025 1:40 PM EDT Office Visit [facility] Division of Gynecologic Oncology in [place] 85 [facility] [address] [place] [phone] Martina Nelson MD 85 [facility] [address] [place] [address] documented as of this encounter Visit Diagnoses Not on filedocumented in this encounter Care Teams Spooling Operator Relationship Specialty Start Date End Date Margy Martinez PA PCP - General 02/15/21 Ruth Diaz MD [address] [place] [address] [address] [place] [address] Obstetrics and Gynecology 12/05/22 Genesis Traore RN [address] [address] Oncology Nurse Navigator Medical Oncology 02/17/23 Jesus Manuel Calvillo Clinician Rheumatology 12/06/22 documented as of this encounter
--- OUTSIDE RECORDS SUMMARY | 2025-02-18 17:11 | XMS_ITS | Encounter Summary ---
Author Organization [facility] Address [address] [place] [address] Care Team Providers Care Exterior Designer Name Role Phone Margy Martinez Primary Care Provider [phone]- [phone] Ruth Diaz MD Unavailable Genesis Traore RN Unavailable Encounter Details Date Type Department Care Team (Late st Contact Info) Description 05/19/2023 Scanned Document [facility] Radiation Oncology [address] [place] [phone] Marcin Avila MD [address] [place] [phone] Social History Tobacco Use Types Packs/Day [...] Description 03/17/2025 1:40 PM EDT Office Visit [facility] Division of Gynecologic Oncology in [place] 85 [facility] [address] [place] [address] Martina Nelson MD 85 [facility] [address] [place] [address] documented as of this encounter Visit Diagnoses Not on filedocumented in this encounter Care Teams Exterior Designer Relationship Specialty Start Date End Date Margy Martinez PA PCP - General 02/15/21 Ruth Diaz MD [address] [place] [address] Obstetrics and Gynecology 12/05/22 Genesis Traore, CELIA 85 [facility] [address] [place] [address] Oncology Nurse Navigator Medical Oncology 02/17/23 Jesus Manuel Calvillo Clinician Rheumatology 12/06/22 documented as of this encounter
--- OUTSIDE RECORDS SUMMARY | 2025-02-18 17:11 | XMS_ITS | Encounter Summary ---
Author Organization [facility] Address [address] [place] [address] Care Team Providers Care Ampoule Examiner Name Role Phone Margy Martinez Primary Care Provider [phone]- [phone] Ruth Diaz MD Unavailable [phone] Genesis Traore RN Unavailable Encounter Details Date Type Department Care Team (Late st Contact Info) Description 05/22/2023 Scanned Document [facility] Radiation Oncology [address] [place] [phone] Marcin Avila MD [address] [place] [phone] Social History Tobacco Use Types Packs/Day [...] Description 03/17/2025 1:40 PM EDT Office Visit [facility] Division of Gynecologic Oncology in [place] 85 [facility] [address] [place] [address] Martina Nelson MD 85 [facility] [address] [place] [address] documented as of this encounter Visit Diagnoses Not on filedocumented in this encounter Care Teams Ampoule Examiner Relationship Specialty Start Date End Date Margy Martinez PA PCP - General 02/15/21 Ruth Diaz MD [address] [place] [address] Obstetrics and Gynecology 12/05/22 Genesis Traore, CELIA 85 [facility] [address] [place] [address] Oncology Nurse Navigator Medical Oncology 02/17/23 Jesus Manuel Calvillo Clinician Rheumatology 12/06/22 documented as of this encounter
[2025-02-18 18:35] LABS: MANUAL DIFF FLAG NO
[2025-02-18 18:57] LABS: Basophils Percent Auto 0.5 % (0-2); Eosinophils Absolute Auto 0.5 X10*3/uL (0.0-0.4); Eosinophils Percent Auto 9.4 % (0-4); Hematocrit 37.8 % (37.0-47.0); Hemoglobin 12.9 g/dl (12.0-16.0); Imm Gran Abs Auto 0.05 X10*3/uL (0.00-0.03); Imm Gran Pct Auto 0.9 % (0.0-0.4); Lymphocytes Absolute Auto 1.8 X10*3/uL (1.2-4.9); Mean Corpuscular HGB Conc 34.1 g/dl (31.0-35.0); Mean Corpuscular Volume 90.9 fL (80.0-98.0); Mean Platelet Volume 10.9 fL (9.4-12.3); Monocytes Absolute Auto 0.5 X10*3/uL (0.1-1.2); Monocytes Percent Auto 9.8 % (2-11); Neutrophils Absolute Auto 2.6 x10*3/uL (2.0-8.3); Neutrophils Percent Auto 47.4 % (45-73); Platelet Count 282 X10*3/uL (160-400); Red Blood Count 4.16 X10*6/uL (4.20-5.50); Red Cell Distribution Width 13.9 % (11.0-16.0); White Blood Count 5.5 X10*3/uL (4.8-10.8)
[2025-02-18 19:06] LABS: Alanine Aminotransferase 32 U/L (0-31); Albumin Level 4.5 g/dL (3.5-5.0); Alkaline Phosphatase 70 U/L (39-117); Aspartate Amino Transferase 38 U/L (5-31); Bilirubin Direct 0.2 mg/dL (0.0-0.5); Bilirubin Total 0.4 mg/dL (0.0-1.0); C Reactive Protein < 0.10 mg/dL (< or = 0.50); Estimated Glomerular Filt Rate > 60; Total Protein 7.6 g/dL (6.5-8.0)
[2025-02-18 19:08] LABS: Appearance Urine Turbid; Color Urine Yellow; Glucose Urine UA Negative (Negative); Leukocyte Esterase Urine Negative (Negative); Nitrite Urine Negative (Negative); PH 5.5 (5.0-9.0); Specific Gravity - Urine 1.025 (1.005-1.025); Urine Blood Negative (Negative); Urine Ketones Trace mg/dL (Negative); Urine Protein Negative (Neg-Trace)
[2025-02-18 19:30] LABS: Creatinine Urine 170.48 mg/dL; Protein/Creatinine Ratio, Ur 0.08 (<0.2); Total Protein Urine Random 13 mg/dL (<12)
[2025-02-18 19:38] LABS: Erythrocyte Sedimentation Rate 7 MM/HR (0-20)
[2025-02-19 08:48] LABS: Complement C3 122 mg/dL (83-193)
[2025-02-19 21:54] LABS: Anti DNA DS Antibody <1 IU/mL
[2025-02-21 07:44] LABS: DNAds, Crithidia Antibody Negative (Negative)
== END 2025-02-18 13:03 | disposition home or self-care (01) ==
LOC: HO.HKASLDS 13:02
PROVIDERS: PCP Physician Assistant Medical; Visit Provider Internal Medicine Rheumatology
DX: M32.9 Systemic lupus erythematosus, unspecified (principal); R74.01 Elevation of levels of liver transaminase levels; Z79.60 Long term (current) use of unspecified immunomodulators and immunosuppressants; M18.0 Bilateral primary osteoarthritis of first carpometacarpal joints; M79.18 Myalgia, other site; M25.562 Pain in left knee
CPT/HCPCS: 36415; 80076; 81003; 82565; 82570; 84156; 85025; 85652; 86140; 86160; 86225; 86255; 87086; 99212

== ENCOUNTER 2025-02-18 13:02 | Outpatient (AMB) | payer MEDICARE, SELFPAY ==
--- NOTE | 2025-02-18 13:05 | A.OFFVIS_ITS ---
Vital Signs 02/18/25 13:07 Height 5 ft 5 in Weight 154 lb 15.759 oz BMI 25.8 BP 140/82 H Blood Pressure Location Lt brachial Position Sitting Pulse 80 Pulse Source Pulse Oximeter Pulse Oximetry (%) 98 Oxygen Delivery Method Room Air Intake Visit Reasons: 3 mnts Intake Note: Patient presents today for lupus follow up. Allergies Sulfa (Sulfonamide Antibiotics) Allergy (Mild, Verified 02/18/25 13:09) Rash HPI HPI 3 mnts: Details: Chronic lower back for 3 months localized to left lower back. Pain with increase activity. Denies radiculopathy. She is also experiencing pain in her neck. She is applying heat with some benefit. She also purchased capsaicin topical from [employer] with benefit. For the last few months she has also been having left knee pain localized to medial superior pole of patella. Denies fevers, dyspnea, pleurisy, chest pain, oral ulcers, Raynaud's phenomenon. She has been noticing that she has not been able to hold her urine when she has to urinate and may have a couple of dribbles. Increased urinary frequency due to increase water intake. Denies dysuria or hematuria. [facility] Medical History Cancer Lupus (systemic lupus erythematosus) Surgical History Hx of hysterectomy Hx of tonsillectomy Review of Systems Const All systems reviewed & are unremarkable except as noted in HPI and below Physical Exam Vital Signs: Last Vital Signs Pulse 80 02/18/25 13:07 BP 140/82 H 02/18/25 13:07 Pulse Ox 98 02/18/25 13:07 Oxygen Delivery Method Room Air 02/18/25 13:07 BMI result Body Mass Index 25.8 Const Other: General: Comfortable CVS: RRR Respiratory: clear to auscultation bilaterally. Good respiratory effort Skin: No lesions seen MSK: Localized tenderness lateral to lower left paraspinal muscles of lumbar spine. No spinous process tenderness. Normal lumbar flexion. Tender to palpate superior medial patellar pole of left knee. No knee effusion. No joint line tenderness of knee. Tender to palpate bilateral CMCs with squaring present. No synovitis of any joints. Normal range of upper extremities and lower extremities. Assessment & Plan Assessment & Plan (1) Lupus (systemic lupus erythematosus): Comment: In clinical and serological remission without DMARD therapy. Rheumatology history: Previously treated with azathioprine, which was discontinued when she was diagnosed with vaginal cancer. Subsequently, she had upper vaginectomy and hysterectomy status post chemotherapy. 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 HCQ caused photosensitivity rash. 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 Code(s): M32.9 - Systemic lupus erythematosus, unspecified Category: Medical Qualifiers: Systemic lupus erythematosus type: unspecified Systemic lupus erythematosus organ involvement: unspecified Qualified Code(s): M32.9 - Systemic lupus erythematosus, unspecified Plan: Labs for disease monitoring ordered Return to clinic in 3 months Records from [facility] reviewed Monitor clinically Return to clinic in 3 months (2) Myofascial pain syndrome of lumbar spine: Code(s): M79.18 - Myalgia, other site Category: Medical Plan: PT ordered Continue O2 apply heat to back as needed Continue to apply capsaicin topical as needed Try lidocaine patches Return to clinic in 3 months (3) Osteoarthritis of carpometacarpal (CMC) joint of both thumbs: Comment: Clinical diagnosis. Code(s): M18.0 - Bilateral primary osteoarthritis of first carpometacarpal joints Category: Medical Plan: OT ordered for custom CMC splints and home exercise program Return to clinic in 3 months (4) Left knee pain: Comment: Localized chronic pain to medial superior patellar pole for at least 3 months. I will evaluate further for prepatellar arthritis with x-ray. We discussed conservative management. Code(s): M25.562 - Pain in left knee Category: Medical Plan: X-ray ordered of left knee Patient agreed to PT for lower extremity strengthening including quadriceps strengthening. Orders: Orders Anti DNA DS Antibody Today M32.9 - Systemic lupus erythematosus, unspecified Alanine Aminotransferase Today Z79.60 - superintendent container terminal (current) use of unspecified immunomodulators and immunosuppressants Aspartate Amino Transferase Today Z79.60 - superintendent container terminal (current) use of unspecified immunomodulators and immunosuppressants Complete Blood Count Auto Diff Today Z79.60 - senior living (current) use of unspecified immunomodulators and immunosuppressants Creatinine Today Z79.60 - senior living (current) use of unspecified immunomodulators and immunosuppressants PT Evaluation and Treatment Today M25.562 - Pain in left knee, M54.50 - Low back pain, unspecified, M79.18 - Myalgia, other site OT Evaluation and Treatment Today M18.0 - Bilateral primary osteoarthritis of first carpometacarpal joints Complement C3 Today M32.9 - Systemic lupus erythematosus, unspecified Complement C4 Today M32.9 - Systemic lupus erythematosus, unspecified DNA Double Stranded-Crithidia Today M32.9 - Systemic lupus erythematosus, unspecified Erythrocyte Sedimentation Rate Today M32.9 - Systemic lupus erythematosus, unspecified C Reactive Protein Today M32.9 - Systemic lupus erythematosus, unspecified Protein Creatinine Ratio, Ur Today M32.9 - Systemic lupus erythematosus, unspecified Urine Culture Today M32.9 - Systemic lupus erythematosus, unspecified XR knee LT 2V Today M25.562 - Pain in left knee Coding Level of Care Code Est Pt Level 4 (54825) Complex EM visit Add On G2211 Diagnoses Systemic lupus erythematosus, unspecified SLE type, unspecified organ involvement status M32.9 Systemic lupus erythematosus type: unspecified Systemic lupus erythematosus organ involvement: unspecified Myofascial pain syndrome of lumbar spine M79.18 Osteoarthritis of carpometacarpal (CMC) joint of both thumbs M18.0 Left knee pain M25.562
[2025-02-18 13:07] VITALS: BP 140/82; PULSE 80; O2SAT 98; BMI 25.8
--- OUTSIDE RECORDS SUMMARY | 2025-02-18 15:50 | XMS_ITS | Clinical Summary ---
Author Organization [employer] [facility] Address [address] [place] [address] Care Team Providers Care Senior Internal Auditor Name Role Phone Margy Martinez NP Primary Care Provider [phone] Allergies Active Allergy Reactions Criticality Noted Date Comments Hydroxychloroquine Rash Low 10/16/2019 Sulfa (Sulfonamide Antibiotics) Rash Low 02/2019 Medications aspirin 325 mg tablet Take 1 tablet by mouth 1 (one) time each day. Active cetirizine (ZyrTEC) 10 mg tablet Take 1 tablet by mouth 1 (one) time each day. Active DULoxetine (CYMBALTA) [address] capsule TAKE 1 CAPSULE (60 MG TOTAL) BY MOUTH DAILY. Active famotidine (PEPCID) 20 mg tablet Take 1 tablet by mouth. Active QUEtiapine (SEROquel) 25 mg tablet Take 25 mg by mouth every night. Active rosuvastatin (CRESTOR) 10 mg tablet TAKE 1 TABLET DAILY (NEED TO BE SEEN) Active B complex tablet Take by mouth. Active amLODIPine (NORVASC) 10 mg tablet 1 (one) time each day. Active cholecalciferol (VITAMIN D-3) 10 mcg (400 unit) capsule Take 1,000 Units by mouth 1 (one) time each day. Active meloxicam (MOBIC) 15 mg tablet Take 15 mg by mouth 1 (one) time each day if needed. Active montelukast (SINGULAIR) 10 mg tablet montelukast 10 mg tablet Active olmesartan (BENICAR) 40 mg tablet 1 (one) time each day. 020 Active omega 9-shk-fhx-fish oil 1,000 mg (120 mg-180 mg) capsule Take 1,000 mg by mouth 2 (two) times a day. Active co-enzyme Q-10 50 mg capsule Take 1 tablet by mouth 5 (five) times a week. Active triamcinolone (NASACORT) 55 mcg nasal inhaler Administer 2 sprays into each nostril 1 (one) time each day. Active ferrous sulfate (SLOW RELEASE IRON ORAL) Take by mouth. Active estradioL (ESTRACE) 0.01 % (0.1 mg/gram) vaginal cream estradiol 0.01% (0.1 mg/gram) vaginal cream Active lidocaine-prilocaine (EMLA) 2.5-2.5 % cream lidocaine-pril ocaine 2.5 %-2.5 % topical cream Active docosahexaenoic acid-epa 120-180 mg capsule Take 1,000 mg by mouth. Active azaTHIOprine (Imuran) 50 mg tabletIndications:Syste devyn lupus erythematosus with other organ involvement, unspecified SLE type (CMS/HCC) ([facility]),Sjogren's syndrome with keratoconjunctivitis sicca ([facility]) Take 1 tablet (50 mg total) by mouth 1 (one) time each day. 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 Raynaud's disease without gangrene 03/18/2020 Sjogren's disease 03/18/2020 Systemic lupus erythematosus ([facility]) 0 Immunizations Immunization Administration Dates Next Due INFLUENZA, RECOMBINANT, QUAD RIVALENT, PRESERVATIVE FREE 07/26/2018,07/25/2016,08/28/2015 INFLUENZA, SEASONAL, INJECTABLE 08/13/2021 Influenza, injectable, quadr ivalent, preservative free 08/24/2020 Influenza, quadrivalent, PF 08/24/2020 PNEUMOCOCCAL POLYSACCHARIDE PPV23 01/12/2008 Pfizer Purple Cap SARS-COV-2 Vaccination 021,01/19/2021,12/29/2020 TD (ADULT), 5 LF TETANUS TOX OID, PRESERVATIVE FREE, ABSORBED 09/21/2020,09/24/2004 Tdap 11/03/2010 Social History Tobacco Use Types Packs/Day Years Used Date Smoking Tobacco: Former Cigarettes Q uit: 02/06/1999 Smokeless Tobacco: Never Tobacco Cessation:Counseling Given: Not Answered Comments No Sex and Gender Information Value Date Recorded Sex Assigned at Not on file Legal Sex Female 5:28 PM EST Gender Identity Not on file Sexual Orientation Not on file Last Filed Vital Signs Vital Sign Reading Time Taken Comments Blood Pressure - - Pulse - - Temperature - - Respiratory Rate - - Oxygen Saturation - - Inhaled Oxygen Concentration - - Weight 68 kg (150 lb) 02/03/2021 10:58 AM EDT Kyle acosta reported Height - - Body Mass Index - - Plan of Treatment Scheduled Orders Name Type Priority Associated Diagnoses Orde r Schedule CBC auto differential Lab Routine Other systemic lupus erythematosus with other organ involvement (HCC) Sjogren's syndrome with other organ involvement (HCC) Cervical spondylosis Raynaud's disease without gangrene Vitamin D deficiency Expected: 07/24/2022 (Approximate), Expires: 07/24/2023 Basic metabolic panel Lab Routine Other systemic lupus erythematosus with other organ involvement (HCC) Sjogren's syndrome with other organ involvement (HCC) Cervical spondylosis Raynaud's disease without gangrene Vitamin D deficiency 1 Occurrences starting 07/24/2022 until 07/24/2023 ALT Lab Routine Other systemic lupus erythematosus with other organ involvement (HCC) Sjogren's syndrome with other organ involvement (HCC) Cervical spondylosis Raynaud's disease without gangrene Vitamin D deficiency 1 Occurrences starting 07/24/2022 until 07/24/2023 AST Lab Routine Other systemic lupus erythematosus with other organ involvement (HCC) Sjogren's syndrome with other organ involvement (HCC) Cervical spondylosis Raynaud's disease without gangrene Vitamin D deficiency 1 Occurrences starting 07/24/2022 until 07/24/2023 C4 complement Lab Routine Other systemic lupus erythematosus with other organ involvement (HCC) Sjogren's syndrome with other organ involvement (HCC) Cervical spondylosis Raynaud's disease without gangrene Vitamin D deficiency 1 Occurrences starting 07/24/2022 until 07/24/2023 RNA Polymerase III Antibody Lab Routine Other systemic lupus erythematosus with other organ involvement (HCC) Sjogren's syndrome with other organ involvement (HCC) Cervical spondylosis Raynaud's disease without gangrene Vitamin D deficiency 1 Occurrences starting 07/24/2022 until 07/24/2023 Sjogren's Antibodies (SS-A,SS-B) Lab Routine Other systemic lupus erythematosus with other organ involvement (HCC) Sjogren's syndrome with other organ involvement (HCC) Cervical spondylosis Raynaud's disease without gangrene Vitamin D deficiency 1 Occurrences starting 07/24/2022 until 07/24/2023 C-reactive protein Lab Routine Other systemic lupus erythematosus with other organ involvement (HCC) Sjogren's syndrome with other organ involvement (HCC) Cervical spondylosis Raynaud's disease without gangrene Vitamin D deficiency 1 Occurrences starting 07/24/2022 until 07/24/2023 Vitamin D 25 hydroxy Lab Routine Other systemic lupus erythematosus with other organ involvement (HCC) Sjogren's syndrome with other organ involvement (HCC) Cervical spondylosis Raynaud's disease without gangrene Vitamin D deficiency Expected: 07/24/2022 (Approximate), Expires: 07/24/2023 Health Maintenance Due Date Last Done Comments CT Colonography 1966 FIT-DNA 1966 FIT 1966 FOBT 1966 Hepatitis C Screening 1966 Pap Smear 1987 Cervical Cancer Screening 1996 HPV/Cotest 1996 Pneumococcal Vaccine: 50+ Years (2 of 2 - PCV) 2016 01/12/2008 Zoster Vaccines (1 of 2) 2016 Medicare Annual Wellness Visit 12/26/2019 12/26/2018, 07/26/2018, 10/16/2017, Additional history exists Mammogram 12/28/2019 12/28/2018, 12/14, 12/25/2018, Additional history exists COVID-19 Vaccine ( season) 2024 09/06/2021, 01/19/2021, 12/29/2020 Influenza Vaccine (Season Ended) 2025 09/09/2022, 08/13/2021, 08/24/2020, Additional history exists Tdap and Td Vaccines Adult 09/21/203009/21, 11/03/2010, 09/24/2004 Colonoscopy 03/14/2033 03/14/2023, 12/17/2020 Colorectal Cancer Screening 03/14/2033 Sigmoidoscopy 03/14/2033 03/14/2023 Pneumococcal Vaccine: Peds (0 to 5 Yrs) and At-Risk Pts (6 to 49 Yrs) Aged Out 01/12/2008 No longer eligible based on patient's age to complete this topic HIB Vaccines Aged Out No longer eligi ble based on patient's age to complete this topic HPV Vaccines Aged Out No longer eligi ble based on patient's age to complete this topic Hepatitis A Vaccines Aged Out No long er eligible based on patient's age to complete this topic IPV Vaccines Aged Out No longer eligi ble based on patient's age to complete this topic Lipid Panel Discontinued Meningococcal Vaccine Aged Out No helen moncho eligible based on patient's age to complete this topic RSV <20 Months Aged Out No longer ester gible based on patient's age to complete this topic Insurance MEDICARE [employer] Care Teams Senior Internal Auditor Relationship Specialty Start Date End Date Margy Martinez NP [address] [place] [address] [facility] - General 03/17/20
--- OUTSIDE RECORDS SUMMARY | 2025-02-18 15:50 | XMS_ITS | Encounter Summary ---
Author Organization [facility] Address [address] [place] [address] Care Team Providers Care Court Liaison Name Role Phone Margy Martinez Primary Care Provider [phone] Ruth Diaz MD Unavailable [phone] Genesis Traore RN Unavailable Encounter Details Date Type Department Care Team (Late st Contact Info) Description 11/04/2022 Scanned Document [facility] Division of Gynecologic Oncology in [address] [place] [phone] Ruth Diaz MD [address] [place] [id number] Social History Tobacco Use Types Packs/Day Years Used Date Smoking Tobacco: Former Smokeless Tobacco: Never Comments:quit 1999 Alcohol Use Standard Drinks/Week Comments Not Currently 0 (1 standard drink = 0.6 oz pur e alcohol) quit 06/2020 Sex and Gender Information Value Date Recorded Sex Assigned at Female 12/21/2022 7:28 AM EST Gender Identity Female 12/21/2022 7:28 AM EST Sexual Orientation Heterosexual (straight) 12/30 11:25 AM EST documented as of this encounter Plan of Treatment Upcoming Encounters Date Type Department Care Team (Late st Contact Info) Description 03/17/2025 1:40 PM EDT Office Visit [facility] Division of Gynecologic Oncology in [address] [place] [phone] Chris Nelson MD [address] [facility] [address] [place] [address] documented as of this encounter Visit Diagnoses Not on filedocumented in this encounter Care Teams Court Liaison Relationship Specialty Start Date End Date Margy Martinez PA PCP - General 02/15/21 Ruth Diaz MD [address] [place] [address] [address] [place] [address] Obstetrics and Gynecology 12/05/22 Genesis Traore RN [address] [facility] [address] [place] [address] Oncology Nurse Navigator Medical Oncology 02/17/23 Jesus Manuel Calvillo Clinician Rheumatology 12/06/22 documented as of this encounter
--- OUTSIDE RECORDS SUMMARY | 2025-02-18 15:50 | XMS_ITS | Encounter Summary ---
Author Organization [employer] Address [address] [place] [address] Care Team Providers Care Hr Advisor Name Role Phone Margy Martinez NP Primary Care Provider [phone] Reason for Visit * Reason Comments Med Refill Encounter Details Date Type Department Care Team (Latest Contact Info) Description 12/31/2022 Refill [facility] [place] [address] Zack Larson, DO PhD [address] [place] [phone] Systemic lupus erythematosus with other organ involvement, unspecified SLE type (CMS/HCC) (HCC) (Primary Dx); Sjogren's syndrome with keratoconjunctivitis sicca (HCC) Social History Tobacco Use Types Packs/Day Years Used Date Smoking Tobacco: Former Cigarettes Q uit: 02/06/1999 Smokeless Tobacco: Never Comments No Sex and Gender Information Value Date Recorded Sex Assigned at Not on file Legal Sex Female 5:28 PM EST Gender Identity Not on file Sexual Orientation Not on file documented as of this encounter Miscellaneous Notes * Telephone Encounter - Julia Benites RN - 01/02/2023 8:03 AM EST Refill imuran message sent to make follow up appointment * Telephone Encounter - Lea Osman MA - 01/02/2023 7:17 AM EST Last visit 07/19/2022 documented in this encounter Plan of Treatment Not on file documented as of this encounter Visit Diagnoses Diagnosis Systemic lupus erythematosus with other organ involvement, unspecified SLE type (CMS/HCC) (HCC)- Primary Sjogren's syndrome with keratoconjunctivitis sicca ([facility]) documented in this encounter Care Teams Hr Advisor Relationship Specialty Start Date End Date Margy Martinez NP [address] [place] [address] [address] [place] [address] PCP - General 03/17/20 documented as of this encounter
--- OUTSIDE RECORDS SUMMARY | 2025-02-18 15:50 | XMS_ITS | Encounter Summary ---
Author Organization [facility] Address [address] [place] [address] Care Team Providers Care Needle Loom Setter Name Role Phone Margy Martinez Primary Care Provider [phone] Ruth Diaz MD Unavailable Genesis Traore RN Unavailable Encounter Details Date Type Department Care Team (Late st Contact Info) Description 05/08/2023 Scanned Document [facility] Radiation Oncology [address] [place] [phone] Marcin Avila MD [address] [place] [phone] Social History Tobacco Use Types Packs/Day Years Used Date Smoking Tobacco: Former Cigarettes Q uit: 1998 Smokeless Tobacco: Never Comments:quit 1999 Alcohol Use Standard Drinks/Week Comments Yes 7 (1 standard drink = 0.6 oz pur e alcohol) AUDIT-C Answer Date Recorded Q1: How often do you have a drink containing alcohol? 4 or more times a week 01/13/2023 Q2: How many drinks containi ng alcohol do you have on a typical day when you are drinking? 1 or 2 Q3: How often do you have si x or more drinks on one occasion? Never 01/13/2023 PHQ-2 Answer Date Recorded PHQ-2 Total Score 2 03/11/2023 Sex and Gender Information Value Date Recorded Sex Assigned at Female 12/21/2022 7:28 AM EST Gender Identity Female 12/21/2022 7:28 AM EST Sexual Orientation Heterosexual (straight) 12/30 11:25 AM EST COVID-19 Exposure Response Date Recorded In the last 10 days, have yo u been in contact with someone who was confirmed or suspected to have Coronavirus/COVID-19? No / Unsure 05/04/2023 1:14 PM EDT documented as of this encounter Plan of Treatment Upcoming Encounters Date Type Department Care Team (Late st Contact Info) Description 03/17/2025 1:40 PM EDT Office Visit [facility] Division of Gynecologic Oncology in [place] 85 [facility] [address] [place] [address] Martina Nelson MD 85 [facility] [address] [place] [address] documented as of this encounter Visit Diagnoses Not on filedocumented in this encounter Care Teams Needle Loom Setter Relationship Specialty Start Date End Date Margy Martinez PA PCP - General 02/15/21 Ruth Diaz MD [address] [place] [phone] Obstetrics and Gynecology 12/05/22 Genesis Traore, CELIA 85 [facility] [address] [place] [address] Oncology Nurse Navigator Medical Oncology 02/17/23 Jesus Manuel Calvillo Clinician Rheumatology 12/06/22 documented as of this encounter
--- OUTSIDE RECORDS SUMMARY | 2025-02-18 15:50 | XMS_ITS | Clinical Summary ---
Author Organization [facility] [place] Address [address] [place] [address] Care Team Providers Care Bi Analyst Name Role Phone Leigha Mazariegos Primary Care Provider [phone] Allergies Active Allergy Reactions Criticality Noted Date Comments Adhesive Other 02/01/2023 Adhesive tape blisters Sulfa (Sulfonamide Antibiotics) 09/07/2015 creams Sulfanilamide 10/04/2023 Medications amLODIPine (NORVASC) 10 mg tablet 1 tablet (10 mg total). 3 Active aspirin 325 mg EC tablet Take 1 tablet (325 mg total) by mouth. Active cetirizine (ZyrTEC) 10 mg tablet Take 1 tablet (10 mg total) by mouth daily. Active cholecalcifero l (VITAMIN D-3) 25 mcg (1,000 unit) tablet Take 1 tablet (1,000 Units total) by mouth daily. Active clobetasoL (TEMOVATE) 0.05 % ointment APPLY A THIN LAYER TO THE AFFECTED AREA(S) 2 TIMES PER DAY FOR A WEEK THEN TWICE A WEEK 2 Active estradioL (ESTRACE) 0.01 % (0.1 mg/gram) vaginal cream INSERT 1 GRAM INTRAVAGINALLY EVERY NIGHT AT BEDTIME X2 WEEKS THEN TWICE WEEKLY THEREAFTER 2 Active famotidine (PEPCID) 20 mg tablet Take 1 tablet (20 mg total) by mouth every night at bedtime. Active olmesartan (BENICAR) 40 mg tablet TAKE 1 TABLET BY MOUTH EVERY DAY 3 Active QUEtiapine (SEROquel) 25 mg tablet Take 1-2 tablets (25-50 mg total) by mouth every night at bedtime as needed. 3 Active rosuvastatin (CRESTOR) 10 mg tablet TAKE 1 TABLET BY MOUTH EVERY DAY 3 Active triamcinolone (NASACORT) 55 mcg nasal inhaler spray or apply inside Nose. Active omega-3 fatty acids 1,000 mg capsule Take 1,000 mg by mouth. Active DULoxetine (CYMBALTA) [address] capsule Take 1 capsule (60 mg total) by mouth 1 (one) time each day. 4 Active pantoprazole (PROTONIX) 40 mg EC tablet 1 tablet (40 mg total). 5 Active Active Problems Problem Noted Date Diagnosed Date Vaginal cancer 02/16/2023 Carcinoma in situ of uterine cervix 08/04/2020 Sjogren's disease 03/18/2020 Hypergammaglobulinemia 03/18/2020 Major depression in remission 07/26/2018 BCC (basal cell carcinoma of skin) 03/28/2018 Overview (01/08/2024): Right Leg 2008 Left Leg 2015 CVA (cerebral vascular accident) 03/28/2018 Overview (01/08/2024): Idiopathic 09/17 Medial cortex left occipital lobe, posterior left frontal lobe Hyperlipidemia 03/28/2018 Essential hypertension 09/26/2017 Multiple thyroid nodules 08/18/2017 Overview (01/08/2024): Benign appearing cystic subcentimeter thyroid nodules, stable on ultrasound 06/10/2014 to 08/18/2017, 09/24/19 Recheck 1 year Raynaud's phenomenon without gangrene 02/06/2017 Chronic fatigue 06/06/2016 ANDRADE positive 05/18/2015 Disseminated lupus erythematosus 05/18/2015 DJD (degenerative joint disease) of cervical spi ne 05/18/2015 Primary osteoarthritis involving multiple joints 05/18/2015 Encounters Date Type Department Care Team Description 01/16/2025 Telephone [facility] [place] [address] [place] [address] Jose F Koenig DO 12/31/2024 11:40 AM EST Office Visit [facility] [place] [address] [place] [phone] Jose F Koenig, Gastro-esophageal reflux disease without esophagitis from Last 3 Months Immunizations Name Administration Dates Next Due COVID-19 (Pfizer/Comirnaty) 12yo and older 09/29/2023 Influenza Quadravalent, MDCK , 0.5ml, preservative free (Flucelvax) 6mo and older 09/09/2022 Influenza Quadrivalent, 0.5m l, preservative free (Fluarix; FluLaval; Fluzone) ages 6mo and older (Afluria) 3yo and older 09/28/2021,07/26/2018,07/25/2016,08/28 Influenza Quadrivalent, with preservative (Fluzone; Afluria) 6mo and older 09/29/2023,08/24/2020 Influenza trivalent, with pr eservative (Fluzone; Afluria) 6mo and older 09/29/2023,08/13/2021 Influenza, live, intranasal, quadrivalent (FluMist) 2yo to less than 50yo 09/09/2022 [employer] SARS-CoV-2 COVID-19, mRNA, LNP-S, preservative free 01/19/2021,12/29/2020 Pneumococcal conjugate 20 va lent (Prevnar 20, PCV 20) 2mo and older 10/10/2022 Pneumococcal polysaccharide 23 valent (Pneumovax 23) 2yo and older 01/12/2008 Td Tetanus diptheria, preser vative free (Tenivac) 7yo and older 09/21/2020,09/24/2004 Tdap Tetanus diptheria acell ular pertussis (Boostrix; Adacel) 7yo and older 11/03/2010 Zoster Live 09/29/2023 Zoster recombinant (Shingrix ) 19yo and older 09/29/2023 Surgical History Surgery Date Site/Laterality Comments TONSILLECTOMY PROCEDURE:TONSILLECTOMY;COMMENT:adeno ids TYMPANOSTOMY 1973 Bilateral PROCEDURE:TYMPANOSTOMY ENDOMETRIAL ABLATION 2009 PROCEDURE:ENDOMETRIAL ABLATION COLONOSCOPY 09/07/2015 N/A PROCEDURE:COLONOSCOPY;COMMENT:Procedu re: COLONOSCOPY, fm hx polyps; Surgeon: Prince Gray MD; Location: [facility]; Service: Gastroenterology; Laterality: N/A; Medical History Medical History Date Comments Stroke (CMS/HCC) DX:Stroke (HCC) ;COMMENT:2004 Lupus DX:Lupus;COMMENT :2007 Family History Medical History Relation Name Comments No Known Problems Father Depression Half-Sister Early Half-Sister at age 40 Obesity Half-Sister Aneurysm Mother Brain Depression Mother Fibromyalgia Mother Lung cancer Mother Osteoarthritis Mother Relation Name Status Comments Father Half-Sister Mother Social History Tobacco Use Types Packs/Day Years Used Date Smoking Tobacco: Former Cigarettes Q uit: 08/13/1999 Smokeless Tobacco: Former Alcohol Use Standard Drinks/Week Comments No 6 (1 standard drink = 0.6 oz pur e alcohol) Comments Unknown Sex and Gender Information Value Date Recorded Sex Assigned at Not on file Legal Sex Female 9:47 PM EST Gender Identity Not on file Sexual Orientation Not on file Obstetrics History Last Filed Vital Signs Vital Sign Reading Time Taken Comments Blood Pressure 120/78 12/31/2024 11:48 AM EST Pulse 88 12/31/2024 11:48 AM EST Temperature - - Respiratory Rate - - Oxygen Saturation 98% 12/31/2024 11:48 AM EST Inhaled Oxygen Concentration - - Weight 69.4 kg (153 lb) 12/31/2024 11:48 AM EST Height 165.1 cm (5' 5 ) 12/31/2024 11:48 AM EST Body Mass Index 25.46 12/31/2024 11:48 AM EST Plan of Treatment Health Maintenance Due Date Last Done Comments Hepatitis B Vaccines (1 of 3 - 19+ 3-dose series) 1985 Breast Cancer Screening 12/28/2020 12/28/2018 HIV Screening 10/15/2022 Medicare Annual Wellness Visit 10/15/2022 Social Influencers of Health Screening 10/15/2022 Zoster Vaccines (2 of 2) 11/24/2023 09/29/2023, 09/13 COVID-19 Vaccine ( season) 2024 09/29/2023, 09/06/2021, 01/19/2021, Additional history exists Influenza Vaccine (#1) 2024 , 09/29/2023, 09/09/2022, Additional history exists Depression Screening 10/04/2024 10/04/2023 Hypertension/CHF/CAD Annual BMP Blood Test 06/27/2025 06/27/2024, 06/14/2024, 09/27/2023, Additional history exists Cervical Cancer Screening: HPV 09/20/2027 09/20/2022 Cholesterol Screening (Lipid Panel) 10/03/2027 10/03/2022, 10/03/2022 DTaP,Tdap,and Td Vaccines (4 - Td or Tdap) 09/21/2030 09/21/2020, 11/03/2010, 09/24/2004 Colorectal Cancer Screening: Colonoscopy 03/14/2033 03/14/2023, 12/14/2020 Pneumococcal Vaccine: 50+ Years Completed 10/10/2022, 01/12/2008 Pneumococcal Vaccine: Pediatrics (0 to 5 Years) and At-Risk Patients (6 to 64 Years) Completed 10/10/2022, 01/12/2008 Hepatitis C Screening Completed 09/27/2023 HIB Vaccines Aged Out No longer eligi [...] on patient's age to complete this topic MMR Vaccines Aged Out No longer eligi ble based on patient's age to complete this topic Meningococcal ACWY Vaccine Aged Out N o longer eligible based on patient's age to complete this topic Meningococcal B Vaccine Aged Out No l onger eligible based on patient's age to complete this topic RSV Immunization Patients Under 20 months Aged Out No longer eligible based on patient's age to complete this topic Varicella Vaccines Aged Out No longer eligible based on patient's age to complete this topic Procedures Procedure Name Priority Date/Time Associated Diagnosis Comments DEPRESSION SCREENING Routine 10/04/2023 HEPATITIS C SCREENING Routine 09/27/2023 ANNUAL BMP BLOOD TEST Routine 09/27/2023 LIPID PANEL Routine 10/03/2022 HPV Routine 09/20/2022 COLONOSCOPY Routine 12/14/2020 MAMMOGRAM SCREENING DIGITAL WITH CAD - BILATERAL Routine 12/28/2018 9:18 AM EST from Last 3 Months or Most Recently Relevant to Health Maintenance Results * Depression Screening (10/04/2023) [facility] Depression Screening abstracted Result [facility] HEALTH MAINTENANCE Final Result * Annual BMP Blood Test (09/27/2023) [facility] Annual BMP Blood Test abstracted Result [facility] HEALTH MAINTENANCE Final Result * Hepatitis C Screening (09/27/2023) [facility] Hepatitis C Screening abstracted Result [facility] Provider HEALTH MAINTENANCE Final Result * Lipid panel (10/03/2022) [facility] LDL/HDL Ratio 2 <=5 Triglycerides 68 <=150 mg/dL Cholesterol 193 <=200 mg/dL HDL 91 >=50 mg/dL LDL Cholesterol 87 <=100 mg/dL Blood Venous blood specimen / Unknown Result [facility] Provider LAB BLOOD ORDERABLES Patti l Result * Cervical Cancer Screening: HPV (09/20/2022) [facility] Cervical Cancer Screening: HPV no interpretation , abstracted Result [facility] Provider HEALTH MAINTENANCE Final Result * Colonoscopy (12/14/2020) [facility] Colonoscopy no interpretation , abstracted Anatomical Region Laterality Modality Other [facility] Provider HEALTH MAINTENANCE Final Result * MAMMOGRAM SCREENING DIGITAL WITH CAD - BILATERAL (12/28/2018 9:18 AM EST) Anatomical Region Laterality Modality Mammography 12/25/2018 2:00 PM EST Narrative 12/28/2018 9:18 AM EST Ordering Provider: SELF, REFER HISTORY: Patient is 53 years old and is seen for screening. The patient has no personal history of breast or ovarian cancer. The patient has no family history of breast cancer. FILMS COMPARED: The present examination has been compared to prior imaging studies dated 06/15/2017 and 04/25/2016. MAMMOGRAM FINDINGS: The following digital mammographic views were obtained: bilateral craniocaudal, bilateral mediolateral oblique. There are scattered fibroglandular densities. (ACR BIRADS density Category b) * There is a focal asymmetry seen in the posterior third upper outer quadrant of the left breast. Finding remains unchanged from the prior study. No suspicious masses, calcifications or other abnormalities are seen in either breast. Computer-aided detection was utilized by the radiologist in the interpretation of this examination. IMPRESSION: Focal asymmetry in the left breast is benign. Routine follow-up mammogram in 1 year is recommended. The patient will receive a lay summary of the results of this breast imaging exam. Lay summaries for mammography examinations will also identify the patients personal breast tissue composition as required by state law. BIRADS Category 2: Benign Thank you for referring your patient to us, James Monroe MD [id number] (Electronically Signed - 12/28/2018 09:18) Copy: CYNTHIA MORROW MD [facility] [address] [facility] [address] [place] [address] LEIGHA MAZARIEGOS PA-C [facility] [address] [place] [address] Procedure Note Historical, Radiology Results, - 11/17/2022 Ordering Provider: SELF, REFER HISTORY: Patient is 53 years old and is seen for screening. The patient has no personal history of breast or ovarian cancer. The patient has no family history of breast cancer. FILMS COMPARED: The present examination has been compared to prior imaging studies dated06/15/2017 and 04/25/2016. MAMMOGRAM FINDINGS: The following digital mammographic views were obtained: bilateralcraniocaudal, bilateral mediolateral oblique. There are scattered fibroglandular densities. (ACR BIRADS density Categoryb) * There is a focal asymmetry seen in the posterior third upper outerquadrant of the left breast. Finding remains unchanged from the priorstudy. No suspicious masses, calcifications or other abnormalities are seen ineither breast. Computer-aided detection was utilized by the radiologist in theinterpretation of this examination. IMPRESSION: Focal asymmetry in the left breast is benign. Routine follow-up mammogram in 1 year is recommended. The patient will receive a lay summary of the results of this breastimaging exam. Lay summaries for mammography examinations will alsoidentify the patients personal breast tissue composition as required bystate law. BIRADS Category 2: Benign Thank you for referring your patient to us, James Monroe MD [id number] (Electronically Signed - 12/28/2018 09:18) Copy: CYNTHIA MORROW MD [facility] 20 [facility] [address] [place] [address] LEIGHA MAZARIEGOS PA-C [facility] [address] [place] [address] us Radiology Results Historical IMDeric BI PROCEDURE S Final Result from Last 3 Months or Most Recently Relevant to Health Maintenance Insurance [place]ICARE [place] Care Teams Bi Analyst Relationship Specialty Start Date End Date Leigha Mazariegos PA [address] [place] [phone] PCP - General Physician Certified Wellness Program Coordinator 05/18/15
--- OUTSIDE RECORDS SUMMARY | 2025-02-18 15:50 | XMS_ITS | Encounter Summary ---
Author Organization [facility] Address [address] [place] [address] Care Team Providers Care Skiver Machine Operator Name Role Phone Margy Martinez Primary Care Provider [phone] Ruth Diaz MD Unavailable Genesis Traore RN Unavailable Encounter Details Date Type Department Care Team (Late st Contact Info) Description 05/12/2023 Scanned Document [facility] Radiation Oncology [address] [place] [phone] Marcin Avila MD [address] [place] [phone] Social History Tobacco Use Types Packs/Day [...] Description 03/17/2025 1:40 PM EDT Office Visit [facility] Division of Gynecologic Oncology in [place] 85 [facility] [address] [place] [address] Martina Nelson MD 85 [facility] [address] [place] [address] documented as of this encounter Visit Diagnoses Not on filedocumented in this encounter Care Teams Skiver Machine Operator Relationship Specialty Start Date End Date Margy Martinez PA PCP - General 02/15/21 Ruth Diaz MD [address] [place] [address] Obstetrics and Gynecology 12/05/22 Genesis Traore, CELIA 85 [facility] [address] [place] [address] Oncology Nurse Navigator Medical Oncology 02/17/23 Jesus Manuel Calvillo Clinician Rheumatology 12/06/22 documented as of this encounter
--- OUTSIDE RECORDS SUMMARY | 2025-02-18 15:50 | XMS_ITS | Encounter Summary ---
Author Organization [facility] Address [address] [place] [address] Care Team Providers Care Associate Sales Name Role Phone Margy Martinez Primary Care Provider [phone] Ruth Diaz MD Unavailable Genesis Traore RN Unavailable Encounter Details Date Type Department Care Team (Late st Contact Info) Description 05/01/2023 Scanned Document [facility] Radiation Oncology [address] [place] [phone] Marcin Avila MD [address] [place] [phone] Social History Tobacco Use Types Packs/Day [...] Description 03/17/2025 1:40 PM EDT Office Visit [facility] Division of Gynecologic Oncology in [place] 85 [facility] [address] [place] [address] Martina Nelson MD 85 [facility] [address] [place] [address] documented as of this encounter Visit Diagnoses Not on filedocumented in this encounter Care Teams Associate Sales Relationship Specialty Start Date End Date Margy Martinez PA PCP - General 02/15/21 Ruth Diaz MD [address] [place] [address] Obstetrics and Gynecology 12/05/22 Genesis Traore, CELIA 85 [facility] [address] [place] [address] Oncology Nurse Navigator Medical Oncology 02/17/23 Jesus Manuel Calvillo Clinician Rheumatology 12/06/22 documented as of this encounter
--- OUTSIDE RECORDS SUMMARY | 2025-02-18 15:50 | XMS_ITS | Encounter Summary ---
Author Organization [facility] Address [address] [place] [address] Care Team Providers Care Planning Supervisor Name Role Phone Margy Martinez Primary Care Provider [phone] Ruth Diaz MD Unavailable Genesis Traore RN Unavailable Encounter Details Date Type Department Care Team (Late st Contact Info) Description 04/24/2023 Scanned Document [facility] Radiation Oncology [address] [place] [phone] Marcin Avila MD [address] [place] [phone] Social History Tobacco Use Types Packs/Day [...] suspected to have Coronavirus/COVID-19? No / Unsure 04/24/2023 11:42 AM EDT documented as of this encounter Plan of Treatment Upcoming Encounters Date Type Department Care Team (Late st Contact Info) Description 03/17/2025 1:40 PM EDT Office Visit [facility] Division of Gynecologic Oncology in [place] 85 [facility] [address] [place] [address] Martina Nelson MD 85 [facility] [address] [place] [address] documented as of this encounter Visit Diagnoses Not on filedocumented in this encounter Care Teams Planning Supervisor Relationship Specialty Start Date End Date Margy Martinez PA PCP - General 02/15/21 Ruth Diaz MD [address] [place] [address] Obstetrics and Gynecology 12/05/22 Genesis Traore, CELIA 85 [facility] [address] [place] [address] Oncology Nurse Navigator Medical Oncology 02/17/23 Jesus Manuel Calvillo Clinician Rheumatology 12/06/22 documented as of this encounter
--- OUTSIDE RECORDS SUMMARY | 2025-02-18 15:50 | XMS_ITS | Encounter Summary ---
Author Organization [facility] Address [address] [place] [address] Care Team Providers Care Title Checker Name Role Phone Margy Martinez Primary Care Provider [phone] Ruth Diaz MD Unavailable Genesis Traore RN Unavailable Encounter Details Date Type Department Care Team (Late st Contact Info) Description 04/17/2023 Scanned Document [facility] Radiation Oncology [address] [place] [phone] Marcin Avila MD [address] [place] [phone] Social History Tobacco Use Types Packs/Day [...] suspected to have Coronavirus/COVID-19? No / Unsure 04/17/2023 1:52 PM EDT documented as of this encounter Plan of Treatment Upcoming Encounters Date Type Department Care Team (Late st Contact Info) Description 03/17/2025 1:40 PM EDT Office Visit [facility] Division of Gynecologic Oncology in [place] 85 [facility] [address] [place] [address] Martina Nelson MD 85 [facility] [address] [place] [address] documented as of this encounter Visit Diagnoses Not on filedocumented in this encounter Care Teams Title Checker Relationship Specialty Start Date End Date Margy Martinez PA PCP - General 02/15/21 Ruth Diaz MD [address] [place] [phone] Obstetrics and Gynecology 12/05/22 Genesis Traore, CELIA 85 [facility] [address] [place] [address] Oncology Nurse Navigator Medical Oncology 02/17/23 Jesus Manuel Calvillo Clinician Rheumatology 12/06/22 documented as of this encounter
--- OUTSIDE RECORDS SUMMARY | 2025-02-18 15:50 | XMS_ITS | Encounter Summary ---
Author Organization [facility] Address [address] [place] [address] Care Team Providers Care Weigh Box Tender Name Role Phone Margy Martinez NP Primary Care Provider [phone] Reason for Visit * Reason Comments Med Refill Encounter Details Date Type Department Care Team (Latest Contact Info) Description 05/29/2023 Refill [facility] Rheumatology [address] [phone] Zack Larson, DO PhD [address] [place] [address] Systemic lupus erythematosus with other organ involvement, unspecified SLE type (CMS/HCC) (HCC); Sjogren's syndrome with keratoconjunctivitis sicca (HCC) Social History Tobacco Use Types Packs/Day Years Used Date Smoking Tobacco: Former Cigarettes Q uit: 02/06/1999 Smokeless Tobacco: Never Comments No Sex and Gender Information Value Date Recorded Sex Assigned at Not on file Legal Sex Female 5:28 PM EST Gender Identity Not on file Sexual Orientation Not on file documented as of this encounter Plan of Treatment Not on file documented as of this encounter Visit Diagnoses Diagnosis Systemic lupus erythematosus with other organ involvement, unspecified SLE type (CMS/HCC) (HCC) Sjogren's syndrome with keratoconjunctivitis sicca (HCC) documented in this encounter Care Teams Weigh Box Tender Relationship Specialty Start Date End Date Margy Martinez NP [address] [place] [address] PCP - General 03/17/20 documented as of this encounter
--- OUTSIDE RECORDS SUMMARY | 2025-02-18 15:50 | XMS_ITS | Encounter Summary ---
Author Organization [facility] Address [address] [place] [address] Care Team Providers Care Hydraulic Rubbish Compactor Mechanic Name Role Phone Margy Martinez Primary Care Provider [phone] Ruth Diaz MD Unavailable Genesis Traore RN Unavailable Encounter Details Date Type Department Care Team ([facility] st Contact Info) Description 12/13/2022 Scanned Document [facility] Division of Gynecologic Oncology in [place] [address] [address] Chris Nelson MD [address] [id number] Social History Tobacco Use Types Packs/Day Years Used Date Smoking Tobacco: Former Cigarettes Q uit: 1998 Smokeless Tobacco: Never Comments:quit 1999 Alcohol Use Standard Drinks/Week Comments Not Currently 7 (1 standard drink = 0.6 oz pur e alcohol) AUDIT-C Answer Date Recorded Q1: How often do you have a drink containing alcohol? 4 or more times a week 12/09/2022 Q2: How many drinks containi ng alcohol do you have on a typical day when you are drinking? 1 or 2 Q3: How often do you have si x or more drinks on one occasion? Never 12/09/2022 Sex and Gender Information Value Date Recorded Sex Assigned at Female 12/21/2022 7:28 AM EST Gender Identity Female 12/21/2022 7:28 AM EST Sexual Orientation Heterosexual (straight) 12/30 11:25 AM EST COVID-19 Exposure Response Date Recorded In the last 10 days, have yo u been in contact with someone who was confirmed or suspected to have Coronavirus/COVID-19? No / Unsure 12/14/2022 10:05 AM EST documented as of this encounter Plan of Treatment Upcoming Encounters Date Type Department Care Team (Late st Contact Info) Description 03/17/2025 1:40 PM EDT Office Visit [facility] Division of Gynecologic Oncology in [place] 85 [facility] [address] [place] [address] Chris Nelson MD 85 [facility] [address] [place] [address] documented as of this encounter Visit Diagnoses Not on filedocumented in this encounter Care Teams Hydraulic Rubbish Compactor Mechanic Relationship Specialty Start Date End Date Margy Martinez PA PCP - General 02/15/21 Ruth Diaz MD [address] [place] [address] [address] [place] [address] Obstetrics and Gynecology 12/05/22 Genesis Traore, CELIA 85 [facility] [address] [place] [address] Oncology Nurse Navigator Medical Oncology 02/17/23 Jesus Manuel Calvillo Clinician Rheumatology 12/06/22 documented as of this encounter
--- OUTSIDE RECORDS SUMMARY | 2025-02-18 15:50 | XMS_ITS | Encounter Summary ---
Author Organization [facility] Address [address] [place] [address] Care Team Providers Care Renal Medicine Physician Name Role Phone Margy Martinez Primary Care Provider [phone] Ruth Diaz MD Unavailable Genesis Traore RN Unavailable Encounter Details Date Type Department Care Team ([facility] Contact Info) Description 02/14/2021 Prep for Surgery OBGYN IP [address] [place] [address] Jose Lawler MD 20 [facility] [address] [place] [address] Social History Tobacco Use Types Packs/Day Years [...] Exposure Response Date Recorded In the last month, have you been in contact with someone who was confirmed or suspected to have Coronavirus / COVID-19? No / Unsure 01/28/2021 12:38 PM EDT documented as of this encounter Plan of Treatment Upcoming Encounters Date Type Department Care Team (Late Contact Info) Description 03/17/2025 1:40 PM EDT Office Visit [facility] Division of Gynecologic Oncology in [place] 85 [facility] [address] [place] [phone] Chris Nelson MD 85 [facility] [address] [place], [place] [phone] documented as of this encounter Visit Diagnoses Not on filedocumented in this encounter Care Teams Renal Medicine Physician Relationship Specialty Start Date End Date Margy Martinez PA PCP - General 02/15/21 Ruth Diaz MD [address] [place] [address] [place] [address] Obstetrics and Gynecology 12/05/22 Genesis Traore RN 85 [facility] [address] [place] [address] Oncology Nurse Navigator Medical Oncology 02/17/23 Jesus Manuel Calvillo Clinician Rheumatology 12/06/22 documented as of this encounter
--- OUTSIDE RECORDS SUMMARY | 2025-02-18 15:50 | XMS_ITS | Encounter Summary ---
Author Organization [facility] Address [address] [place] [address] Care Team Providers Care Set Up / Operator Name Role Phone Margy Martinez Primary Care Provider [phone] Ruth Diaz MD Unavailable Genesis Traore RN Unavailable Encounter Details Date Type Department Care Team (Late st Contact Info) Description 04/11/2023 Scanned Document [facility] Radiation Oncology [address] [place] [phone] Marcin Avila MD [address] [place] [phone] Social History Tobacco Use Types Packs/Day [...] suspected to have Coronavirus/COVID-19? No / Unsure 04/07/2023 10:05 AM EDT documented as of this encounter Plan of Treatment Upcoming Encounters Date Type Department Care Team (Late st Contact Info) Description 03/17/2025 1:40 PM EDT Office Visit [facility] Division of Gynecologic Oncology in [place] 85 [facility] 705 [place] [address] Martina Nelson MD 85 [facility] [address] [place] [address] documented as of this encounter Visit Diagnoses Not on filedocumented in this encounter Care Teams Set Up / Operator Relationship Specialty Start Date End Date Margy Martinez PA PCP - General 02/15/21 Ruth Diaz MD [address] [place] [address] Obstetrics and Gynecology 12/05/22 Genesis Traore, CELIA 85 [facility] [address] [place] [address] Oncology Nurse Navigator Medical Oncology 02/17/23 Jesus Manuel Calvillo Clinician Rheumatology 12/06/22 documented as of this encounter
--- OUTSIDE RECORDS SUMMARY | 2025-02-18 15:50 | XMS_ITS | Encounter Summary ---
Author Organization [facility] Address [address] [place] [address] Care Team Providers Care Sales Marketing Manager Name Role Phone Margy Martinez Primary Care Provider [phone] Ruth Diaz MD Unavailable [phone] Genesis Traore RN Unavailable Encounter Details Date Type Department Care Team (Late st Contact Info) Description 05/05/2023 Scanned Document [facility] Radiation Oncology [address] [place] [phone] Marcin Avila MD [address] [place] [phone] Social History Tobacco Use Types Packs/Day [...] Description 03/17/2025 1:40 PM EDT Office Visit [facility] Division of Gynecologic Oncology in [place] 85 [facility] [address] [place] [address] Martina Nelson MD 85 [facility] [address] [place] [address] documented as of this encounter Visit Diagnoses Not on filedocumented in this encounter Care Teams Sales Marketing Manager Relationship Specialty Start Date End Date Margy Martinez PA PCP - General 02/15/21 Ruth Diaz MD [address] [place] [address] Obstetrics and Gynecology 12/05/22 Genesis Traore, CELIA 85 [facility] [address] [place] [address] Oncology Nurse Navigator Medical Oncology 02/17/23 Jesus Manuel Calvillo Clinician Rheumatology 12/06/22 documented as of this encounter
--- OUTSIDE RECORDS SUMMARY | 2025-02-18 15:50 | XMS_ITS | Encounter Summary ---
Author Organization [facility] Address [address] [place] [address] Care Team Providers Care Fishing Tool Operator Name Role Phone Margy Martinez Primary Care Provider [phone] Ruth Diaz MD Unavailable [phone] Genesis Traore RN Unavailable Encounter Details Date Type Department Care Team (Late st Contact Info) Description 05/15/2023 Scanned Document [facility] Radiation Oncology [address] [place] [phone] Marcin Avila MD [address] [place] [phone] Social History Tobacco Use Types Packs/Day [...] [facility] Division of Gynecologic Oncology in [place] 85 [facility] [address] [place] [address] Martina Nelson MD 85 [facility] [address] [place] [address] documented as of this encounter Visit Diagnoses Not on filedocumented in this encounter Care Teams Fishing Tool Operator Relationship Specialty Start Date End Date Margy Martinez PA PCP - General 02/15/21 Ruth Diaz MD [address] [place] [address] Obstetrics and Gynecology 12/05/22 Genesis Traore, CELIA 85 [facility] [address] [place] [address] Oncology Nurse Navigator Medical Oncology 02/17/23 Jesus Manuel Calvillo Clinician Rheumatology 12/06/22 documented as of this encounter
--- OUTSIDE RECORDS SUMMARY | 2025-02-18 15:50 | XMS_ITS | Encounter Summary ---
Author Organization [facility] Address [address] [place] [address] Care Team Providers Care Adon Name Role Phone Margy Martinez Primary Care Provider [phone] Ruth Diaz MD Unavailable Genesis Traore RN Unavailable Reason for Visit * Reason Comments Med Change Request Encounter Details Date Type Department Care Team (Late st Contact Info) Description 03/27/2023 Refill [facility] [address] [phone] Prince Armstrong MD [address] [address] Hemorrhoids, unspecified hemorrhoid type (Primary Dx); Rectal bleeding Social History Tobacco Use Types Packs/Day Years [...] suspected to have Coronavirus/COVID-19? No / Unsure 03/13/2023 8:44 AM EDT documented as of this encounter Miscellaneous Notes * Telephone Encounter - Prince Armstrong MD - 04/11/2023 10:09 PM EDT I keep getting this notification from the pharmacy but the medication is not covered and I have notheard that the patient wishes to buy it out of pocket. documented in this encounter Plan of Treatment Upcoming Encounters Date Type Department Care Team (Late st Contact Info) Description 03/17/2025 1:40 PM EDT Office Visit [facility] Division of Gynecologic Oncology in [place] [address] [phone] Martina Nelson MD [address] [address] documented as of this encounter Visit Diagnoses Diagnosis Hemorrhoids, unspecified hemorrhoid type- Primary Rectal bleeding Hemorrhage of rectum and anus documented in this encounter Care Teams Adon Relationship Specialty Start Date End Date Margy Martinez PA PCP - General 02/15/21 Ruth Diaz MD [address] [place] [address] Obstetrics and Gynecology 12/05/22 Genesis Traore, CELIA [address] [address] Oncology Nurse Navigator Medical Oncology 02/17/23 Jesus Manuel Calvillo Clinician Rheumatology 12/06/22 documented as of this encounter
--- OUTSIDE RECORDS SUMMARY | 2025-02-18 15:50 | XMS_ITS | Encounter Summary ---
Author Organization [facility] Address [address] [place] [address] Care Team Providers Care Application Infrastructure Engineer Name Role Phone Margy Martinez Primary Care Provider [phone] Ruth Diaz MD Unavailable [phone] Genesis Traore RN Unavailable Reason for Visit * Reason Comments Appointment Encounter Details Date Type Department Care Team (Late st Contact Info) Description 12/30/2022 Telephone [facility] Urologic Surgery [place] 85 [facility] [address] [place] [address] Provider, Generic Appointment Social History Tobacco Use Types Packs/Day Years [...] suspected to have Coronavirus/COVID-19? No / Unsure 12/30/2022 11:22 AM EST documented as of this encounter Miscellaneous Notes * Telephone Encounter - Dulce Ray RN - 01/04/2023 1:40 PM EST Appt made, pt called and made aware. Date/time/ address provided to pt. documented in this encounter Plan of Treatment Upcoming Encounters Date Type Department Care Team (Late st Contact Info) Description 03/17/2025 1:40 PM EDT Office Visit [facility] Division of Gynecologic Oncology in [place] 85 [facility] [address] [place] [phone] Chris Nelson MD 85 [facility] [address] [place] [address] documented as of this encounter Visit Diagnoses Not on filedocumented in this encounter Care Teams Application Infrastructure Engineer Relationship Specialty Start Date End Date Margy Martinez PA PCP - General 02/15/21 Ruth Diaz MD [address] [place] [address] Obstetrics and Gynecology 12/05/22 Genesis Traore RN 85 [facility] [address] [place] [address] Oncology Nurse Navigator Medical Oncology 02/17/23 Jesus Manuel Calvillo Clinician Rheumatology 12/06/22 documented as of this encounter
--- OUTSIDE RECORDS SUMMARY | 2025-02-18 15:51 | XMS_ITS | Encounter Summary ---
Author Organization [facility] Address [address] [place] [address] Care Team Providers Care Bread Panner Name Role Phone Margy Martinez Primary Care Provider [phone] Ruth Diaz MD Unavailable Genesis Traore RN Unavailable Encounter Details Date Type Department Care Team (Late st Contact Info) Description 05/17/2023 Scanned Document [facility] Radiation Oncology [address] [place] [phone] Marcin Avila MD [address] [place] [phone] Social History Tobacco Use Types Packs/Day [...] Description 03/17/2025 1:40 PM EDT Office Visit [facility] Division of Gynecologic Oncology in [place] 85 [facility] [address] [place] [address] Martina Nelson MD 85 [facility] [address] [place] [address] documented as of this encounter Visit Diagnoses Not on filedocumented in this encounter Care Teams Bread Panner Relationship Specialty Start Date End Date Margy Martinez PA PCP - General 02/15/21 Ruth Diaz MD [address] [place] [address] Obstetrics and Gynecology 12/05/22 Genesis Traore, CELIA 85 [facility] [address] [place] [address] Oncology Nurse Navigator Medical Oncology 02/17/23 Jesus Manuel Calvillo Clinician Rheumatology 12/06/22 documented as of this encounter
--- OUTSIDE RECORDS SUMMARY | 2025-02-18 15:51 | XMS_ITS ---
Author Name [facility] Organization Unknown Results Test Name/Text Value Interpretation Date Range Source POC Glucose 82mg/dL Normal [id number] 65 - 99 [facility] Clinical info Normal [id number] [facility] Cyto Cvx Normal [id number] [facility] Stat of Adq Cvx/Vag Cyto-Imp Normal [id number] [facility] LMP Start date Normal [id number] QU EST Date previous bx Normal [id number] [facility] Cytology Cmnt Cvx/Vag Cyto-Imp Normal [id number] [facility] Date of previous PAP Normal [id number] [facility] Pathologist Cvx/Vag Cyto Normal [id number] [facility] Specimen source Cvx/Vag Cyto Normal [id number] [facility] COMMENT Normal [id number] [facility] HPV E6+E7 mRNA Cvx Ql MADELYN+probe Not Detected Normal [id number] - [facility] [employer] Maintenance Inspector Cvx/Vag Cyto Normal [id number] [facility] HPV E6+E7 mRNA Cvx Ql MADELYN+probe Not Detected Normal [id number] [facility] REPORT ALWAYS MESSAGE SIGNATURE Normal [id number] [facility] COMMENT Normal [id number] [facility] CLIENT CONTACT: FIDEL Steiner Normal [id number] Q [facility] Ref Lab Test Name HPV mRNA E6E7 POST HYST Normal [id number] [facility] Ref Lab Test 63226 Normal [id number] [facility] T TSH SerPl-aCnc 1.51mIU/L Normal [id number] 0.4 - 4.5 QU EST BUN/Creat SerPl SEE NOTE: Normal [id number] 6 - 22 Q [facility] Prot SerPl-mCnc 6.9g/dL Normal [id number] 6.1 - 8.1 Q [facility] ALP SerPl-cCnc 56U/L Normal [id number] 37 - 153 QU EST Albumin/Glob SerPl 1.7(calc) Normal [id number] 1 - 2.5 [facility] Creat SerPl-mCnc 0.87mg/dL Normal [id number] 0.5 - 1.03 [facility] Potassium SerPl-sCnc 4.1mmol/L Normal [id number] 3.5 - 5.3 [facility] Albumin SerPl-mCnc 4.3g/dL Normal [id number] 3.6 - 5. 1 [facility] Sodium SerPl-sCnc 140mmol/L Normal [id number] 135 - 146 [facility] Globulin Ser Calc-mCnc 2.6g/dL(calc) Normal [id number] 1.9 - 3.7 [facility] Bilirub SerPl-mCnc 0.3mg/dL Normal [id number] 0.2 - 1. 2 [facility] Calcium SerPl-mCnc 9.2mg/dL Normal [id number] 8.6 - 10 .4 [facility] BUN SerPl-mCnc 12mg/dL Normal [id number] 7 - 25 QU EST Glucose SerPl-mCnc 78mg/dL Normal [id number] 65 - 99 [facility] eGFRcr SerPlBld CKD-EPI 2020 77mL/min/1.73m2 Normal [id number] - [facility] AST SerPl-cCnc 25U/L Normal [id number] 10 - 35 QU EST CO2 SerPl-sCnc 27mmol/L Normal [id number] 20 - 32 QU EST Chloride SerPl-sCnc 104mmol/L Normal [id number] 98 - 11 0 [facility] ALT SerPl-cCnc 23U/L Normal [id number] 6 - 29 QU EST Cholest SerPl-mCnc 173mg/dL Normal [id number] - 200 [facility] Cholest/HDLc SerPl 2.3(calc) Normal [id number] - 5 [facility] LDLc SerPl Calc-mCnc 80mg/dL(calc) Normal [id number] [facility] Trigl SerPl-mCnc 99mg/dL Normal [id number] - 150 [facility] NonHDLc SerPl-mCnc 98mg/dL(calc) Normal [id number] - 13 0 [facility] HDLc SerPl-mCnc 75mg/dL Normal [id number] - Q [facility] Neutrophils # Bld Auto 2185cells/uL Normal [id number] 1500 - 7800 [facility] Lymphocytes # Bld Auto 1226cells/uL Normal [id number] 850 - 3900 [facility] Eosinophil # Bld Auto 230cells/uL Normal [id number] 15 - 500 [facility] Eosinophil/leuk NFr Bld Auto 5.6% Normal [id number] [facility] Lymphocytes/leuk NFr Bld Auto 29.9% Normal [id number] [facility] WBC # Bld Auto 4.1Thousand/uL Normal [id number] 3.8 - 1 0.8 [facility] MCH RBC Qn Auto 31.8pg Normal [id number] 27 - 33 Q [facility] Basophils/leuk NFr Bld Auto 0.5% Normal [id number] [facility] RBC # Bld Auto 3.9Million/uL Normal [id number] 3.8 - 5. 1 [facility] Hct VFr Bld Auto 38% Normal [id number] 35 - 45 [facility] Monocytes # Bld Auto 439cells/uL Normal [id number] 200 - 950 [facility] Neutrophils/leuk NFr Bld Auto 53.3% Normal [id number] [facility] PMV Bld Leopoldo-Kiara 10.5fL Normal [id number] 7.5 - 12 .5 [facility] RDW RBC Auto-Rto 12.7% Normal [id number] 11 - 15 [facility] MCHC RBC Auto-mCnc 32.6g/dL Normal [id number] 32 - 36 [facility] Monocytes/leuk NFr Bld Auto 10.7% Normal [id number] [facility] MCV RBC Auto 97.4fL Normal [id number] 80 - 100 [facility] T Hgb Bld-mCnc 12.4g/dL Normal [id number] 11.7 - 15.5 QU EST Platelet # Bld Auto 292Thousand/uL Normal [id number] 14 0 - 400 [facility] Basophils # Bld Auto 21cells/uL Normal [id number] 0 - 2 00 [facility] History of Medication Use Medication Directions Dispensed Refills Start Date End Date Stat us clobetasoL (TEMOVATE) 0.05 % ointment APPLY A THIN LAYER TO THE AFFECTED AREA(S) 2 TIMES PER DAY FOR A WEEK THEN TWICE A WEEK 09/20/2022 active amLODIPine (NORVASC) 10 mg tablet 1 tablet (10 mg total). 07/17/2023 active omega-3 fatty acids 1,000 mg capsule Take 1,000 mg by mouth. active DULoxetine (CYMBALTA) [address] capsule Take 1 capsule (60 mg total) by mouth 1 (one) time each day. 07/23/2024 active rosuvastatin (CRESTOR) 10 mg tablet TAKE 1 TABLET BY MOUTH EVERY DAY 06/01/2023 active QUEtiapine (SEROquel) 25 mg tablet Take 1-2 tablets (25-50 mg total) by mouth every night at bedtime as needed. 03/08/2023 active aspirin 325 mg EC tablet Take 1 tablet (325 mg total) by mouth. active famotidine (PEPCID) 20 mg tablet Take 1 tablet (20 mg total) by mouth every night at bedtime. active cholecalciferol (VITAMIN D-3) 25 mcg (1,000 unit) tablet Take 1 tablet (1,000 Units total) by mouth daily. active pantoprazole (PROTONIX) 40 mg EC tablet 1 tablet (40 mg total). 11/29/2024 active estradioL (ESTRACE) 0.01 % (0.1 mg/gram) vaginal cream INSERT 1 GRAM INTRAVAGINALLY EVERY NIGHT AT BEDTIME X2 WEEKS THEN TWICE WEEKLY THEREAFTER 11/26/2021 active cetirizine (ZyrTEC) 10 mg tablet Take 1 tablet (10 mg total) by mouth daily. active olmesartan (BENICAR) 40 mg tablet TAKE 1 TABLET BY MOUTH EVERY DAY 04/07/2023 active triamcinolone (NASACORT) 55 mcg nasal inhaler spray or apply inside Nose. active PANTOprazole (PROTONIX) 40 MG EC tablet 1 tablet (40 mg total). 11/29/2024 active ondansetron (ZOFRAN) 8 MG tablet Take 1 tablet (8 mg total) by mouth 3 times daily (every 8 hours) as needed for nausea or vomiting. 03/13/2023 07/05/20 23 active azaTHIOprine (IMURAN) 50 MG tablet 1 tablet 3 (three) times a week on Monday, Monday, Monday. 12/31/2014 active rosuvastatin (Crestor) 10 MG tablet 1 tablet every evening. 11/26/2014 active Triamcinolone Acetonide (NASACORT AQ NA) 2 sprays into each nostril every evening. active quetiapine 25 mg tablet TAKE 1-2 TABLETS (25-50 MG TOTAL) BY MOUTH EVERY NIGHT AT BEDTIME NEEDED. TAKE 1-2 TABLETS (25-50 MG TOTAL) BY MOUTH EVERY NIGHT AT BEDTIME NEEDED. completed acetaminophen (TYLENOL) 500 MG tablet Take 2 tablets (1,000 mg total) by mouth 4 times daily (every 6 hours) as needed for mild pain. 12/21/2022 03/13/20 aborted duloxetine 60 mg capsule,delayed release TAKE 1 CAPSULE BY MOUTH EVERY DAY TAKE 1 CAPSULE BY MOUTH EVERY DAY completed estradiol 0.01% (0.1 mg/gram) vaginal cream INSERT 1 GRAM INTRAVAGINALLY EVERY NIGHT AT BEDTIME X2 WEEKS THEN TWICE WEEKLY THEREAFTER INSERT 1 GRAM INTRAVAGINALLY EVERY NIGHT AT BEDTIME X2 WEEKS THEN TWICE WEEKLY THEREAFTER completed hydrocortisone (ANUSOL-HC) 25 MG suppository INSERT 1 SUPPOSITORY INTO THE RECTUM 2 TIMES A DAY. 03/27/2023 04/03/20 aborted estradiol (ESTRACE) 0.01 % vaginal cream Insert 2 g into the vagina 2 (two) times a week. 2 times per week 10/12/2023 09/27/20 active aprepitant (CINVANTI) IVP syringe 130 mg 18 mL 130 mg, Intravenous, at 540 mL/hr, Once, On Mon05/02/23 at 1200, For 1 doseAdminister IVP over 2 minutes, 30 minutes prior to chemotherapy 04/04/2023 05/02/20 completed cholecalciferol (CHOLECALCIFEROL) 25 MCG (1000 UT) tablet Take 1 tablet (1,000 Units total) by mouth 2 (two) times a day. active sodium chloride 0.9 % with KCl 20 mEq/L (NS-KCL20) infusion (premix) 500 mL/hr, Intravenous, Every 3 hours, First dose on Mon05/02/23 at 1200, For 2 dosesPre-hydration 500ml/hr x1 hr prior to Cisplatin and Post-hydration 500ml/hr x 1 hr after cisplatin 04/04/2023 05/02/20 completed CISplatin (PLATINOL) 70 mg in sodium chloride (NS) 0.9 % 500 mL IVPB 70 mg, Intravenous, Administer over 1 Hours, Once, On Mon05/02/23 at 1300, For 1 doseVesicant. Do not use needles or IV sets with Aluminum. Hazardous Med Level 1: PPE and Closed System Transfer Device (CSTD) required. See Hazardous Medication Policy. 04/04/2023 05/02/20 completed magnesium sulfate IVPB 2 g in 50 mL SW PREMIX 2 g, Intravenous, Administer over 60 Minutes, Once, On Tu05/02/23 at 1200, For 1 dose 04/04/2023 05/02/20 completed olmesartan 40 mg tablet TAKE 1 TABLET BY MOUTH EVERY DAY TAKE 1 TABLET BY MOUTH EVERY DAY completed cetirizine (ZyrTEC) 10 MG tablet Take 1 tablet (10 mg total) by mouth every evening. active meloxicam (MOBIC) 15 MG tablet Take by mouth. 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 ProblemAct [facility] Essential hypertension active ProblemAct [facility] Multiple thyroid nodules active 2017-08 ProblemAct [facility] Sjogren's disease active ProblemAct [facility] Hyperlipidemia active ProblemAct [facility] ANDRADE positive active ProblemAct [facility] Chronic fatigue active ProblemAct [facility] DJD (degenerative joint disease) of cervical spine active ProblemAct [facility] CVA (cerebral vascular accident) active ProblemAct [facility] Major depression in remission active ProblemAct [facility] Disseminated lupus erythematosus active ProblemAct [facility] Primary osteoarthritis involving multiple joints active ProblemAct [facility] BCC (basal cell carcinoma of skin) active ProblemAct [facility] Lupus erythematosus active ProblemAct [facility] Essential hypertension active ProblemAct [facility] Vertigo active ProblemAct [facility] Vaginal cancer active ProblemAct [facility] Raynaud's phenomenon without gangrene active ProblemAct [facility] Hypergammaglobulinemia active ProblemAct [facility] 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 ProblemAct [facility] Depressive disorder active ProblemAct [facility] Hyperlipidemia active ProblemAct [facility] Transient cerebral ischemia active ProblemAct [facility] Atypical squamous cells of undetermined significance on cervical Papanicolaou smear active ProblemAct [facility] Immunizations Vaccine Date Source Lot Number Status Td Tetanus diptheria, preser vative free (Tenivac) 7yo and older 09/24/2004 [facility] complete d Influenza, live, intranasal, quadrivalent (FluMist) 2yo to less than 50yo 09/09/2022 [facility] completed Influenza trivalent, with pr eservative (Fluzone; Afluria) 6mo and older 08/13/2021 [facility] completed COVID-19 (Pfizer/Comirnaty) 12yo and older 09/29/2023 [facility] completed Zoster Live 09/29/2023 [facility] completed Influenza Quadrivalent, 0.5m l, preservative free (Fluarix; FluLaval; Fluzone) ages 6mo and older (Afluria) 3yo and older 07/25/2016 [facility] [id number] completed Tdap Tetanus diptheria acell ular pertussis (Boostrix; Adacel) 7yo and older 11/03/2010 [facility] completed Influenza Quadrivalent, 0.5m l, preservative free (Fluarix; FluLaval; Fluzone) ages 6mo and older (Afluria) 3yo and older 07/26/2018 [facility] [id number] completed Influenza Quadrivalent, 0.5m l, preservative free (Fluarix; FluLaval; Fluzone) ages 6mo and older (Afluria) 3yo and older 09/28/2021 [facility] [id number] completed Influenza Quadravalent, MDCK , 0.5ml, preservative free (Flucelvax) 6mo and older 09/09/2022 [facility] 9424 09 completed Influenza trivalent, with pr eservative (Fluzone; Afluria) 6mo and older 09/29/2023 [facility] completed Influenza Quadrivalent, 0.5m l, preservative free (Fluarix; FluLaval; Fluzone) ages 6mo and older (Afluria) 3yo and older 08/28/2015 [facility] [id number] completed Pfizer SARS-CoV-2 COVID-19, mRNA, LNP-S, preservative free 12/29/2020 [facility] completed Pneumococcal conjugate 20 va lent (Prevnar 20, PCV 20) 2mo and older 10/10/2022 [facility] comple maddy Pneumococcal polysaccharide 23 valent (Pneumovax 23) 2yo and older 01/12/2008 [facility] com pleted Pfizer SARS-CoV-2 COVID-19, mRNA, LNP-S, preservative free 01/19/2021 [facility] completed Zoster recombinant (Shingrix ) 19yo and older 09/29/2023 [facility] completed Td Tetanus diptheria, preser vative free (Tenivac) 7yo and older 09/21/2020 [facility] [id number] complete d Influenza Quadrivalent, with preservative (Fluzone; Afluria) 6mo and older 08/24/2020 [facility] completed Influenza Quadrivalent, with preservative (Fluzone; Afluria) 6mo and older 09/29/2023 [facility] completed Encounters Encounter Type Encounter Reason Primary Diagnosis Location Date Ambulatory [facility] 01/16/2025 Ambulatory [facility] 01/10/2025 Ambulatory 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 [facility] 01/10/2025 Ambulatory Follow-up Gastro-esophagea l reflux disease without esophagitis [facility] 12/31/2024 Ambulatory 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 [facility] 12/17/2024 Ambulatory [facility] 08/28/2024 Ambulatory 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 [facility] 07/31/2024 Ambulatory 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 [facility] 07/31/2024 Ambulatory 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 [facility] 04/10/2024 Ambulatory 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 [facility] 04/10/2024 Ambulatory 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 [facility] 07/05/2023 Ambulatory [facility] 06/21/2023 Ambulatory [facility] 05/22/2023 Ambulatory [facility] 05/19/2023 Ambulatory [facility] 05/17/2023 Ambulatory [facility] 05/15/2023 Ambulatory [facility] 05/12/2023 Ambulatory [facility] 05/05/2023 Ambulatory [facility] 05/05/2023 Ambulatory Malignant neopla sm of vagina [facility] 05/04/2023 Ambulatory Malignant neopla sm of vagina [facility] 05/03/2023 Ambulatory Malignant neopla sm of vagina [facility] 05/02/2023 Ambulatory Malignant neopla sm of vagina [facility] 05/02/2023 Ambulatory Malignant neopla sm of vagina [facility] 05/01/2023 Ambulatory Malignant neopla sm of vagina [facility] 05/01/2023 Ambulatory Malignant neopla sm of vagina [facility] 04/28/2023 Ambulatory Malignant neopla sm of vagina [facility] 04/27/2023 Ambulatory Malignant neopla sm of vagina [facility] 04/26/2023 Ambulatory Malignant neopla sm of vagina [facility] 04/25/2023 Ambulatory Malignant neopla sm of vagina [facility] 04/25/2023 Ambulatory Malignant neopla sm of vagina [facility] 04/24/2023 Ambulatory Malignant neopla sm of vagina [facility] 04/24/2023 Ambulatory Malignant neopla sm of vagina [facility] 04/21/2023 Ambulatory Malignant neopla sm of vagina [facility] 04/20/2023 Ambulatory Malignant neopla sm of vagina [facility] 04/19/2023 Ambulatory Malignant neopla sm of vagina [facility] 04/18/2023 Ambulatory Malignant neopla sm of vagina [facility] 04/18/2023 Ambulatory Other prison (current) drug therapy [facility] 04/17/2023 Ambulatory Malignant neopla sm of vagina [facility] 04/17/2023 Ambulatory Malignant neopla sm of vagina [facility] 04/14/2023 Ambulatory Malignant neopla sm of vagina [facility] 04/13/2023 Ambulatory Malignant neopla sm of vagina [facility] 04/12/2023 Ambulatory Malignant neopla sm of vagina [facility] 04/11/2023 Ambulatory Malignant neopla sm of vagina [facility] 04/11/2023 Ambulatory Other specified noninflammatory disorders of vagina [facility] 04/11/2023 Ambulatory Malignant neopla sm of vagina [facility] 04/07/2023 Ambulatory Tinnitus, unspec ified ear [facility] 04/07/2023 Ambulatory Malignant neopla sm of vagina [facility] 04/06/2023 Ambulatory Malignant neopla sm of vagina [facility] 04/05/2023 Ambulatory Malignant neopla sm of vagina [facility] 04/04/2023 Ambulatory Malignant neopla sm of vagina [facility] 04/04/2023 Ambulatory Malignant neopla sm of vagina [facility] 04/03/2023 Ambulatory Malignant neopla sm of vagina [facility] 04/03/2023 Ambulatory Malignant neopla sm of vagina [facility] 03/31/2023 Ambulatory Malignant neopla sm of vagina [facility] 03/30/2023 Ambulatory [facility] 03/29/2023 Ambulatory Malignant neopla sm of vagina [facility] 03/29/2023 Ambulatory [facility] 03/16/2023 Ambulatory Encounter for sc reening for malignant neoplasm of colon [facility] 03/14/2023 Ambulatory Malignant neopla sm of vagina [facility] 03/13/2023 Ambulatory Nausea [facility] 03/13/2023 Ambulatory Carcinoma in sit u of vagina [facility] 03/09/2023 Ambulatory [facility] 02/28/2023 Ambulatory [facility] 02/28/2023 Ambulatory [facility] 02/21/2023 Ambulatory Malignant neopla sm of vagina [facility] 02/17/2023 Ambulatory Malignant neopla sm of vagina [facility] 02/16/2023 Ambulatory Carcinoma in sit u of vagina [facility] 02/09/2023 Ambulatory Carcinoma in sit u of vagina [facility] 02/01/2023 Ambulatory Failed or diffic ult intubation, subsequent encounter [facility] 01/26/2023 Ambulatory Encounter for ot her preprocedural examination [facility] 01/18/2023 Ambulatory Carcinoma in sit u of vagina [facility] 01/10/2023 Ambulatory Carcinoma in sit u of vagina [facility] 12/30/2022 Ambulatory Carcinoma in sit u of cervix, unspecified [facility] 12/21/2022 Ambulatory Encounter for ot her preprocedural examination [facility] 12/14/2022 Ambulatory high grade squam ous intraepithelial lesion, severe dysplasia [facility] 12/06/2022 Ambulatory Unspecified abno rmal cytological findings in specimens from vagina [facility] 12/05/2022 Ambulatory [facility] 11/03/2022 Ambulatory [facility] 09/20/2022 Ambulatory Other organ or s ystem involvement in systemic lupus erythematosus [facility] 07/19/2022 Ambulatory [facility] 08/20/2021 Care Team Organization Name Specialty Phone Email Start Date End Da te [facility] 01/22/2025 [facility] 025 [facility] 10/29/2024 025 [facility] 08/28/2024 [facility] 12/08/2022 [facility] 12/05/2022 12/05/2022 [facility] 09/21/2022 [facility] 07/19/2022 [facility] 07/19/2022 09/0 04/2022 [facility] 08/20/2021 09/20/2022 [facility] 08/05/2021 07/01/2024
--- OUTSIDE RECORDS SUMMARY | 2025-02-18 15:51 | XMS_ITS | Encounter Summary ---
Author Organization [facility] Address [address] [place] [address] Care Team Providers Care Merchandiser Seasonal Name Role Phone Margy Martinez Primary Care Provider [phone] Ruth Diaz MD Unavailable Genesis Traore RN Unavailable Encounter Details Date Type Department Care Team (Late st Contact Info) Description 05/19/2023 Scanned Document [facility] Radiation Oncology [address] [place] [phone] Marcin Avila MD [address] [place] [phone] Social History Tobacco Use Types Packs/Day [...] Description 03/17/2025 1:40 PM EDT Office Visit [facility] Division of Gynecologic Oncology in [place] [address] [facility] [address] [place] [address] Martina Nelson MD [address] [facility] [address] [place] [address] documented as of this encounter Visit Diagnoses Not on filedocumented in this encounter Care Teams Merchandiser Seasonal Relationship Specialty Start Date End Date Margy Martinez PA PCP - General 02/15/21 Ruth Diaz MD [address] [place] [id number] Obstetrics and Gynecology 12/05/22 Genesis Traore, CELIA [address] [facility] [address] [place] [address] Oncology Nurse Navigator Medical Oncology 02/17/23 Jesus Manuel Calvillo Clinician Rheumatology 12/06/22 documented as of this encounter
--- OUTSIDE RECORDS SUMMARY | 2025-02-18 15:51 | XMS_ITS ---
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 Radiation Treatments * Treatment Site Started On Last Treated On Elapsed Days Fractions Complete Last Fraction Dose Given/Prescribed Total Dose Given/Prescribed Technique [id number]_N odes_A1-3 3 3 35 25 of 25 180 cGy / 180 cGy 4,500 cGy / 4, 500 cGy VMAT
--- OUTSIDE RECORDS SUMMARY | 2025-02-18 15:51 | XMS_ITS | Encounter Summary ---
Author Organization [facility] Address [address] [place] [address] Care Team Providers Care House Wrecker Name Role Phone Margy Martinez NP Primary Care Provider [phone] Reason for Visit * Reason Comments Med Refill Encounter Details Date Type Department Care Team (Latest Contact Info) Description 07/07/2021 Refill [facility] Rheumatology [address] [address] Zack Lasron, DO PhD [address] [place] [phone] Systemic lupus erythematosus with other organ involvement, unspecified SLE type (CMS/HCC); Sjogren's syndrome with keratoconjunctivitis sicca (CMS/HCC) Social History Tobacco Use Types Packs/Day Years [...] (HCC) documented in this encounter Care Teams House Wrecker Relationship Specialty Start Date End Date Margy Martinez NP [address] [place] [address] PCP - General 03/17/20 documented as of this encounter
--- OUTSIDE RECORDS SUMMARY | 2025-02-18 15:51 | XMS_ITS | Encounter Summary ---
Author Organization Formerly [facility] Address [address] [place] [id number] Care Team Providers Care Structural Welder Name Role Phone Margy Martinez Primary Care Provider [phone] Ruth Diaz MD Unavailable Genesis Traore RN Unavailable Encounter Details Date Type Department Care Team (Late st Contact Info) Description 04/03/2023 Scanned Document [facility] Radiation Oncology [address] [place] [phone] Marcin Avila MD [address] [place] [phone] Social History Tobacco Use Types Packs/Day [...] suspected to have Coronavirus/COVID-19? No / Unsure 04/03/2023 11:30 AM EDT documented as of this encounter Plan of Treatment Upcoming Encounters Date Type Department Care Team (Late st Contact Info) Description 03/17/2025 1:40 PM EDT Office Visit [facility] Division of Gynecologic Oncology in [place] 85 [facility] [address] [place] [phone] Martina Nelson MD 85 [facility] [address] [place] [address] documented as of this encounter Visit Diagnoses Not on filedocumented in this encounter Care Teams Structural Welder Relationship Specialty Start Date End Date Margy Martinez PA PCP - General 02/15/21 Ruth Diaz MD [address] [place] [phone] Obstetrics and Gynecology 12/05/22 Genesis Traore, CELIA 85 [facility] [address] [place] [address] Oncology Nurse Navigator Medical Oncology 02/17/23 Jesus Manuel Calvillo Clinician Rheumatology 12/06/22 documented as of this encounter
--- OUTSIDE RECORDS SUMMARY | 2025-02-18 15:51 | XMS_ITS | Encounter Summary ---
Author Organization [facility] Address [address] [place] [address] Care Team Providers Care Zipper Slide Attacher Name Role Phone Margy Martinez Primary Care Provider [phone] Ruth Diaz MD Unavailable Genesis Traore RN Unavailable Encounter Details Date Type Department Care Team (Late st Contact Info) Description 06/22/2023 Scanned Document [facility] Radiation Oncology [address] [place] [phone] Marcin Avila MD [address] [place] [phone] Social History Tobacco Use Types Packs/Day [...] Upcoming Encounters Date Type Department Care Team ([facility] st Contact Info) Description 03/17/2025 1:40 PM EDT Office Visit [facility] Division of Gynecologic Oncology in [place] 85 [facility] [address] [place] [phone] Martina Nelson MD 85 [facility] [address] [place] [address] documented as of this encounter Visit Diagnoses Not on filedocumented in this encounter Care Teams Zipper Slide Attacher Relationship Specialty Start Date End Date Margy Martinez PA PCP - General 02/15/21 Ruth Diaz MD [address] [place] [address] [address] [place] [address] Obstetrics and Gynecology 12/05/22 Genesis Traore RN [address] [phone] Oncology Nurse Navigator Medical Oncology 02/17/23 Jesus Manuel Calvillo Clinician Rheumatology 12/06/22 documented as of this encounter
--- OUTSIDE RECORDS SUMMARY | 2025-02-18 15:51 | XMS_ITS | Clinical Summary ---
Author Organization [facility] Address [address] [place] [address] Care Team Providers Care Perforator Name Role Phone Margy Martinez PA-C Primary Care Provider Allergies Active Allergy Reactions Criticality Noted Date Comments Adhesive Tape Other (See Comments) 02/01/2023 blisters Sulfa Antibiotics 09/07/2015 creams Sulfanilamide 10/04/2023 Medications Medication Sig Dispensed Refills Start Date End Date Status cholecalciferol (VITAMIN D3) 1000 units tablet Take 1 tablet (1,000 Units total) by mouth daily. 0 Active Triamcinolone Acetonide 55 MCG/ACT AERO spray or apply inside Nose. 0 Active famotidine (PEPCID) 20 MG tablet Take 1 tablet (20 mg total) by mouth every night at bedtime. 0 Active cetirizine (ZyrTEC) 10 MG tablet Take 1 tablet (10 mg total) by mouth daily. 0 Active estradiol (ESTRACE) 0.1 MG/GM vaginal cream INSERT 1 GRAM INTRAVAGINALLY EVERY NIGHT AT BEDTIME X2 WEEKS THEN TWICE WEEKLY THEREAFTER 0 11/26/2021 Active aspirin 325 MG EC tablet Take 1 tablet (325 mg total) by mouth. 0 Active [place]-3 Fatty Acids (Fish Oil) 1000 MG CAPS Take 1,000 mg by mouth. 0 Active QUEtiapine (SEROquel) 25 MG tablet Take 1-2 tablets (25-50 mg total) by mouth every night at bedtime as needed. 180 tablet 2 03/08/2023 Active clobetasol (TEMOVATE) 0.05 % ointment APPLY A THIN LAYER TO THE AFFECTED AREA(S) 2 TIMES PER DAY FOR A WEEK THEN TWICE A WEEK 0 09/20/2022 Active olmesartan (BENICAR) tablet 40 mg Take 1 tablet (40 mg total) by mouth daily. 90 tablet 2 01/18/2024 Active amLODIPine (NORVASC) tablet 10 mg Take 1 tablet (10 mg total) by mouth daily. 90 tablet 3 01/23/2024 Active rosuvastatin (CRESTOR) tablet 10 mg TAKE 1 TABLET BY MOUTH EVERY DAY 90 tablet 2 03/20/2024 Active spironolactone (ALDACTONE) tablet 25 mg Take 1 tablet (25 mg total) by mouth daily. 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 10/04/2023 Echocardiogram 02/18/22 02/25/2022 Overview: Normal Echo Carcinoma in situ of uterine cervix 08/04/2020 Hypergammaglobulinemia 03/18/2020 Sjogren's disease 03/18/2020 BMD: 09/24/19 09/30/2019 Overview: Normal Major depression in remission 07/26/2018 CVA (cerebral vascular accident) 03/28/2018 Overview: Idiopathic 09/17 Medial cortex left occipital lobe, posterior left frontal lobe Hyperlipidemia 03/28/2018 BCC (basal cell carcinoma of skin) 03/28/2018 Overview: Right Leg 2009 Left Leg 2016 Quit smoking 199803/28/2018 Overview: 16 pk yr smoking hx Essential hypertension 09/26/2017 Environmental allergies 09/26/2017 Multiple thyroid nodules 08/18/2017 Overview: Benign appearing cystic subcentimeter thyroid nodules, stable on ultrasound 06/10/2014 to 08/18/2017, 09/24/19 Recheck 1 year Raynaud's phenomenon without gangrene 02/06/2017 Chronic fatigue 06/06/2016 Disseminated lupus erythematosus 05/18/2015 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 01/09/2019 10/03/2022 Overview: Pap and HPV negative. 12/26/18 Colonoscopy 09/07/15 03/28/2018 022 Overview: Recheck 5 years Pap smear, low-risk negative for hpv 10/16/2017 10/30/2017 10/03/2022 Immunizations Name Administration Dates Next Due Covid-19 (Pfizer 12+) Fall 2022 0.3mL 09/29/2023 Covid-19 (Pfizer) Dilution Required 09/06/2021,0 01/19/2021,12/29/2020 Influenza Quad (Afluria/Fluz one) 0.5mL >=6mon Vial (SD-IIV4) 09/29/2023,08/24/2020 Influenza Quad (Fluarix/Fluzone/FluLaval) 0.5mL (SD-IIV4) 09/28/2021,07/26/2018,07/25/2016,08/28 Influenza Quad (Flucelvax) 0 .5mL >6mon (ccIIV4) 09/09/2022 Influenza Quad (Flumist) 0.2 mL 2-49 Yrs (LAIV4) 09/09/2022 Influenza Trivalent (Fluzone /Afluria) 5.0mL Multi-dose Vial 09/29/2023,08/13/2021 Pneumococcal Conjugate PCV20 10/10/2022 Pneumococcal Polysaccharide PPSV23 01/12/2008 Shingrix Vaccine (Zoster Recombinant) 09/29/2023 Td (Tenivac) 09/21/2020,09/24/2004 Tdap 11/03/2010 Zostavax (Zoster Live) 09/29/2023 Family History Medical History Relation Name Comments No Sig Med Hx Father Depression Half-Sister Early Half-Sister at age 40 Obesity Half-Sister Aneurysm Mother Brain Depression Mother Fibromyalgia Mother Lung cancer Mother Osteoarthritis Mother Relation Name Status Comments Father Half-Sister Mother Social History Tobacco Use Types Packs/Day Years Used Date Smoking Tobacco: Former Cigarettes Q uit: 08/13/1999 Smokeless Tobacco: Former Comments:quit 21 years ago Alcohol Use Standard Drinks/Week Comments No 6 (1 standard drink = 0.6 oz pur e alcohol) stopped Sex and Gender Information Value Date Recorded Sex Assigned at Not on file Gender Identity Female 09/07/2021 12:56 PM EDT Sexual Orientation Not on file Job Start Date Occupation Industry Not on file Not on file Not on file Last Filed Vital Signs Vital Sign Reading Time Taken Comments Blood Pressure 134/79 05/14/2024 2:46 PM EDT Pulse 73 05/14/2024 2:46 PM EDT Temperature 36.2 ??C (97.2 ??F) 05/14/2024 2:46 PM ED T Respiratory Rate 14 09/07/2015 11:55 AM EDT Oxygen Saturation 98% 05/14/2024 2:46 PM EDT Inhaled Oxygen Concentration - - Weight 68.5 kg (151 lb) 05/14/2024 2:46 PM EDT Height 165.7 cm (5' 5.25 ) 10/04/2023 1:09 PM ES T Body Mass Index 24.94 10/04/2023 1:09 PM EST Plan of Treatment Health Maintenance Due Date Last Done Comments BMI Counseling 10/03/2023 10/03/2022, 09/13, 09/21/2020, Additional history exists Shingrix-Zoster Vaccine (2 of 2) 11/24/2023 09/29/2023 COVID-19 Vaccine ( season) 2024 09/29/2023, 09/06/2021, 01/19/2021, Additional history exists Influenza Vaccine (#1) 2024 , 09/29/2023, 09/09/2022, Additional history exists Depression Screening 10/04/2024 10/04/2023, 10/03/2022, 09/28/2021, Additional history exists Preventative Health Evaluation 10/04/2024 10/04/2023, 09/28/2021, 09/21/2020, Additional history exists Breast Cancer Screening (Mammogram) 11/29/2024 11/29/2022, 11/24/2021, 07/07/2020, Additional history exists Cervical Cancer Screening (Pap Smear) 09/20/2025 09/20/2022, 08/20/2021 DTap / Tdap / Td (3 - Td or Tdap) 09/21/2030 09/21/2020, 11/03/2010, 09/24/2004 Colon Cancer Screening (Colonoscopy) 12/14/2030 12/14/2020, 09/07/2015 Pneumococcal Vaccine Completed 10/10/2022, 01/12/20 Hepatitis C Screening Completed 09/27/2023 Hepatitis B Vaccines Discontinued RSV Ped < 20 months Aged Out No longe r eligible based on patient's age to complete this topic Advance Directives For more information, please contact: [phone] Latest Code Status on File Code Status Date Activated Date Inactivated Comments Full Code 09/07/2015 11:32 AM 09/07/2015 6:36 PM Th is code status was ascertained in the following way: discussion with patient. Care Teams Perforator Relationship Specialty Start Date End Date Margy Martinez PA-C PCP - General Physician Genetic Technologist 05/18/15
--- OUTSIDE RECORDS SUMMARY | 2025-02-18 15:51 | XMS_ITS | Data Portability ---
Author Organization [employer] [facility] [facility], autoContract - [facility] [employer] Address [address] [place] [address], [place] [address] Assessment Encounter Date Assessment Date Assessment LastModified by Organization Details LastModified Time 10/07/2024 10/07/2024 Today Reviewed BMD, work on agustina+D+WB exercise, recheck 06/2026; copy to Dr Jesus Manuel Calvillo Refer to Dr Gr for thyroid nodules, osteopenia [facility]W [facility] colonoscopy 03/2023 Mammo yearly per associate professor of english Pap h/o vaginal CA; h/o TVH; followed by associate professor of english Vax: Td 2019; needs second Shingrix? 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 SLE?) Cont statin, ASA MDD in remission Dysthymia Stress (father with dementia; mentally-ill niece lives with pt) Duloxetine 60 Quetiapine 25 1-2 qhs Has contact info for therapist if needed (WB n/e) (light box-->photose nsitivity) Osteopenia BMD 06/2024 c/t 09/2019 T -1.4 LSS -3.3% T -1.3 L fem neck, -6.1% FRAX 06/[address] Calvillo (rheum), she will discuss with them Agustina + D + WB ex If not ordered by rheum recheck 06/2026 SLE Cont ongoing care w rheum Multiple thyroid nodules Stable US most recently 2021 Recheck US due, refer to [place] Primary OA multiple joints Cont sparing use meloxicam 15 qd, nsaid risks reviewed (on h2b/ppi for gi prophylaxis) Vaginal CA Followed by [facility] oncology [email or web address] Not available 10/19/2024 12:00:28 Plan of Treatment Reminders Order Date Submit Date Provider Last Modified By Organization Details Last Modified Time Details Appointments LAB WORK 2024 11:30A M Nurse Not available Not available Not available OFFICE VISIT 30 2024 01:15P M MILVIA Saunders Not available Not available Not available Lab lipid panel, blood 2023 024 [email or web address] [facility], [address], [place], [address], 10/09/2024 10:44:19 hemoglob in, gastroin testinal , stool 2023 024 [id number] [facility], [address], [place], [address], 10/09/2024 10:44:19 CBC w/ auto diff 2023 024 [id number] [facility], [address], [place], [address], 10/09/2024 10:44:19 CMP, serum or plasma 2023 024 [facility], [address], [place], [address], 10/09/2024 10:44:19 Referral None recorded . Procedures None recorded . Surgeries None recorded . Imaging MAMMO, screenin g, digital, bilatera l 2023 024 [id number] [facility]), [address] [facility], [facility] [address], [place], [address], 10/09/2024 10:44:19 bone density 2023 024 [id number] [facility] ([facility]), [address], [place], [address], 10/09/2024 10:44:19 Medication Orders pantopra zole 40 mg tablet,d elayed release 2023 024 [facility], [address] [facility], [place], [address], 10/07/2024 12:29:43 Patient TargetsNo targets recorded. Patient Instructions Encounter Date Encounter Id Patient Instructions Last Modified By Organization Details Last Modified Time 10/07/2024 [id number] advance care planning: care instructions [email or web address] Not available 10/19/2024 11:53:35 Discussed and explained advance directives such as standard forms to the {{patient caregiv er patient and caregiver}}. Face to face discussion lasted for a duration of ___ minutes. [email or web address] Not available 10/07/2024 12:37:49 Reason for Referral None Reported. Results Created Date Observation Date Name Description Value Unit Range Abnormal Flag Note LastModifiedBy Organization Detail LastModifiedTime 09/30/2009/30/2024 LIPID PANEL WITH REFLE X TO DIREC T LDL cholesterol, total 173 mg/dL <200 normal Not Available [facility] [address], [address], 09/30/2024 22:50:13 09/30/2009/30/2024 LIPID PANEL WITH REFLE X TO DIREC T LDL HDL cholesterol 75 mg/dL > or = 50 normal Not Available [facility] [address], [place], [address], 09/30/2024 22:50:13 09/30/20 24 09/30/2024 LIPID PANEL WITH REFLE X TO DIREC T LDL triglyceride s 99 mg/dL <150 normal Not Available [facility] [address], [place], [address], 09/30/2024 22:50:13 09/30/20 24 09/30/2024 LIPID PANEL WITH REFLE X TO DIREC T LDL LDL-choleste rol 80 mg/dL _(agustina c) normal Refer ence range : <100 Steve able range <100 mg/dL for prima ry preve ntion ; <70 mg/dL for patie nts with CHD or diabe tic patie nts with > or = 2 CHD risk facto rs. LDL-C is now calcu lated using the Bette n-Hop kins calcu jluis n, which is a valid ated novel metho d provi vance julio r accur acy than the Fried doc equat ion in the estim ation of LDL-C . Bette landers SS et al. DESMOND. 2013; 310(1 9): 2061- 2068 (http ://ed ucati on.Qu soniaLinQMart. [employer]/f aq/FA Q164) Not Available [facility] [address], [place], [address], 09/30/2024 22:50:13 09/30/20 24 09/30/2024 LIPID PANEL WITH REFLE X TO DIREC T LDL chol/HDLC ratio 2.3 (calc ) <5.0 normal Not Available [facility] [address], [place], [address], 09/30/2024 22:50:13 09/30/20 24 09/30/2024 LIPID PANEL WITH REFLE X TO DIREC T LDL non HDL cholesterol 98 mg/dL _(agustina c) <130 normal For patie nts with diabe edward plus 1 major ASCVD risk facto r, treat ing to a non-H DL-C goal of <100 mg/dL (LDL- C of <70 mg/dL ) is consi dered a thera peuti c optio n. Not Available [facility] [address], [place], [address], 09/30/2024 22:50:13 09/30/20 24 09/30/2024 COMPR EHENS BROOKLYNN METAB OLIC PANEL glucose 78 mg/dL 65-99 normal Fasti ng refer ence inter елена Not Available [facility] [address], [place], [address], 09/30/2024 22:50:15 09/30/20 24 09/30/2024 COMPR EHENS BROOKLYNN METAB OLIC PANEL urea nitrogen (BUN) 12 mg/dL 7-25 normal Not Available [facility] [address], [place], [address], 09/30/2024 22:50:15 09/30/20 24 09/30/2024 COMPR EHENS BROOKLYNN METAB OLIC PANEL creatinine 0.87 mg/dL 0.50-1 .03 normal Not Available [facility] [address], [place], [address], 09/30/2024 22:50:15 09/30/20 24 09/30/2024 COMPR EHENS BROOKLYNN METAB OLIC PANEL eGFR 77 mL/mi n/1.7 3m2 > or = 60 normal Not Available [facility] [address], [place], [address], 09/30/2024 22:50:15 09/30/20 24 09/30/2024 COMPR EHENS BROOKLYNN METAB OLIC PANEL BUN/creatini ne ratio SEE NOTE: (calc ) 6-22 Not Repor maddy: BUN and Creat inine are withi n refer ence range . Not Available [facility] [address], [place], [address], 09/30/2024 22:50:15 09/30/20 24 09/30/2024 COMPR EHENS BROOKLYNN METAB OLIC PANEL sodium 140 mmol/ L 135-14 6 normal Not Available [facility] [address], [place], [address], 09/30/2024 22:50:15 09/30/20 24 09/30/2024 COMPR EHENS BROOKLYNN METAB OLIC PANEL potassium 4.1 mmol/ L 3.5-5. 3 normal Not Available [facility] [address], [place], [address], 09/30/2024 22:50:15 09/30/20 24 09/30/2024 COMPR EHENS BROOKLYNN METAB OLIC PANEL chloride 104 mmol/ L 98-110 normal Not Available [facility] [address], [place], [address], 09/30/2024 22:50:15 09/30/20 24 09/30/2024 COMPR EHENS BROOKLYNN METAB OLIC PANEL carbon dioxide 27 mmol/ L 20-32 normal Not Available [facility] [address], [place], [address], 09/30/2024 22:50:15 09/30/20 24 09/30/2024 COMPR EHENS BROOKLYNN METAB OLIC PANEL calcium 9.2 mg/dL 8.6-10 .4 normal Not Available [facility] [address], [place], [address], 09/30/2024 22:50:15 09/30/20 24 09/30/2024 COMPR EHENS BROOKLYNN METAB OLIC PANEL protein, total 6.9 g/dL 6.1-8. 1 normal Not Available [facility] [address], [place], [address], 09/30/2024 22:50:15 09/30/20 24 09/30/2024 COMPR EHENS BROOKLYNN METAB OLIC PANEL albumin 4.3 g/dL 3.6-5. 1 normal Not Available [facility] [address], [place], [address], 09/30/2024 22:50:15 09/30/20 24 09/30/2024 COMPR EHENS BROOKLYNN METAB OLIC PANEL globulin 2.6 g/dL_ (calc ) 1.9-3. 7 normal Not Available [facility] [address], [place], [address], 09/30/2024 22:50:15 09/30/20 24 09/30/2024 COMPR EHENS BROOKLYNN METAB OLIC PANEL albumin/glob ulin ratio 1.7 (calc ) 1.0-2. 5 normal Not Available [facility] [address], [place], [address], 09/30/2024 22:50:15 09/30/20 24 09/30/2024 COMPR EHENS BROOKLYNN METAB OLIC PANEL bilirubin, total 0.3 mg/dL 0.2-1. 2 normal Not Available [facility] [address], [place], [address], 09/30/2024 22:50:15 09/30/20 24 09/30/2024 COMPR EHENS BROOKLYNN METAB OLIC PANEL alkaline phosphatase 56 U/L 37-153 normal Not Available [facility] [address], [place], [address], 09/30/2024 22:50:15 09/30/20 24 09/30/2024 COMPR EHENS BROOKLYNN METAB OLIC PANEL AST 25 U/L 10-35 normal Not Available [facility] [address], [place], [address], 09/30/2024 22:50:15 09/30/20 24 09/30/2024 COMPR EHENS BROOKLYNN METAB OLIC PANEL ALT 23 U/L 6-29 normal Not Available [facility] [place] [facility] [address], [place], [address], 09/30/2024 22:50:15 09/30/20 24 09/30/2024 CBC (INCL UDES DIFF/ PLT) white blood cell count 4.1 thous and/u L 3.8-10 .8 normal Not Available [facility] [place] [facility] [address], [place], [address], 09/30/2024 22:50:16 09/30/20 24 09/30/2024 CBC (INCL UDES DIFF/ PLT) red blood cell count 3.90 avila on/uL 3.80-5 .10 normal Not Available [facility] [place] [facility] [address], [place], [address], 09/30/2024 22:50:16 09/30/20 24 09/30/2024 CBC (INCL UDES DIFF/ PLT) hemoglobin 12.4 g/dL 11.7-1 5.5 normal Not Available [facility] [place] [facility] [address], [place], [address], 09/30/2024 22:50:16 09/30/20 24 09/30/2024 CBC (INCL UDES DIFF/ PLT) hematocrit 38.0 % 35.0-4 5.0 normal Not Available [facility] [place] [facility] [address], [place], [address], 09/30/2024 22:50:16 09/30/20 24 09/30/2024 CBC (INCL UDES DIFF/ PLT) MCV 97.4 fL 80.0-1 00.0 normal Not Available [facility] [place] [facility] [address], [place], [address], 09/30/2024 22:50:16 09/30/20 24 09/30/2024 CBC (INCL UDES DIFF/ PLT) MCH 31.8 pg 27.0-3 3.0 normal Not Available [facility] [place] [facility] [address], [place], [address], 09/30/2024 22:50:16 09/30/20 24 09/30/2024 CBC (INCL UDES DIFF/ PLT) MCHC 32.6 g/dL 32.0-3 6.0 normal For adult s, a sligh t decre ase in the calcu lated MCHC value (in the range of 30 to 32 g/dL) is most likel y not clini morris signi deepa t; saturnino er, it shoul d be inter prete d with cauti on in corre lat n with other red cell anil eters and the patie nt's clini agustina condi tion. Not Available [facility] [place] [facility] [address], [place], [address], 09/30/2024 22:50:16 09/30/20 24 09/30/2024 CBC (INCL UDES DIFF/ PLT) RDW 12.7 % 11.0-1 5.0 normal Not Available [facility] [address], [place], [address], 09/30/2024 22:50:16 09/30/20 24 09/30/2024 CBC (INCL UDES DIFF/ PLT) platelet count 292 thous and/u L 140-40 0 normal Not Available [facility] [place] [facility] [address], [place], [address], 09/30/2024 22:50:16 09/30/20 24 09/30/2024 CBC (INCL UDES DIFF/ PLT) MPV 10.5 fL 7.5-12 .5 normal Not Available [facility] [address], [place], [address], 09/30/2024 22:50:16 09/30/20 24 09/30/2024 CBC (INCL UDES DIFF/ PLT) absolute neutrophils 2185 cells /uL 1500-7 800 normal Not Available [facility] [place] [facility] [address], [place], [address], 09/30/2024 22:50:16 09/30/20 24 09/30/2024 CBC (INCL UDES DIFF/ PLT) absolute lymphocytes 1226 cells /uL 850-39 00 normal Not Available [facility] [place] [facility] [address], [place], [address], 09/30/2024 22:50:16 09/30/20 24 09/30/2024 CBC (INCL UDES DIFF/ PLT) absolute monocytes 439 cells /uL 200-95 0 normal Not Available [facility] [place] [facility] [address], [place], [address], 09/30/2024 22:50:16 09/30/20 24 09/30/2024 CBC (INCL UDES DIFF/ PLT) absolute eosinophils 230 cells /uL 15-500 normal Not Available [facility] [place] [facility] [address], [place], [address], 09/30/2024 22:50:16 09/30/20 24 09/30/2024 CBC (INCL UDES DIFF/ PLT) absolute basophils 21 cells /uL 0-200 normal Not Available [facility] [place] [facility] [address], [place], [address], 09/30/2024 22:50:16 09/30/20 24 09/30/2024 CBC (INCL UDES DIFF/ PLT) neutrophils 53.3 % normal Not Available [facility] [place] [facility] [address], [place], [address], 09/30/2024 22:50:16 09/30/20 24 09/30/2024 CBC (INCL UDES DIFF/ PLT) lymphocytes 29.9 % normal Not Available [facility] [address], [place], [address], 09/30/2024 22:50:16 09/30/20 24 09/30/2024 CBC (INCL UDES DIFF/ PLT) monocytes 10.7 % normal Not Available [facility] [address], [place], [address], 09/30/2024 22:50:16 09/30/20 24 09/30/2024 CBC (INCL UDES DIFF/ PLT) eosinophils 5.6 % normal Not Available [facility] [address], [place], [address], 09/30/2024 22:50:16 09/30/20 24 09/30/2024 CBC (INCL UDES DIFF/ PLT) basophils 0.5 % normal Not Available [facility] [address], [place], [address], 09/30/2024 22:50:16 09/30/20 24 09/30/2024 TSH W/REF FRANSISCO TO FT4 TSH w/reflex to FT4 1.51 mIU/L 0.40-4 .50 normal Not Available [facility] [address], [place], [address], 09/30/2024 22:50:17 10/31/20 24 10/31/2024 XR, chest , 1 view No observ ation record ed. [email or web address] [facility]) [address], [place], [address], 11/05/2024 16:49:38 Result Notes None recorded. Problems Name Problem SNOMED Code Status Onset Date Resolution Date Notes Provider Name and Address Organization Details Recorded Time Stopped smoking 545000726 Active 2017 Quit smoking 1998; ZRK1Wlldkr ption: Quit smoking; IRM56Hjuhs iption: Quit smoking; Not Available [facility] 12:18:38 Raynaud's phenomeno n 055492040 Active 2016 Raynaud's phenomenon without gangrene; HHS7Vvrgft ption: Raynaud's phenomenon without gangrene; HND91Fyrtn iption: Raynaud's phenomenon without gangrene; ; Not Available [facility] 12:18:38 Hyperlipi demia 28674065 Active 2017 Hyperlipid emia; ZLH8Eptmtp ption: Hyperlipid emia; RWE49Tckhz iption: Hyperlipid emia; ; Not Available [facility] 12:18:39 Cervical spondylos is 023754865 Active 2014 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; CQQ7Sgblnm ption: 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; OSF06Ljzyq iption: 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; ; Not Available [facility] 12:18:39 Basal cell carcinoma of skin 814892922 Active 2017 BCC (basal cell carcinoma of skin); STO8Swgzqs ption: BCC (basal cell carcinoma of skin); PGC45Ncsyj iption: BCC (basal cell carcinoma of skin); Not Available [facility] 12:18:40 Major depressio n in remission 88449069 Active 2017 Major depression in remission; PXR8Jgdnbb ption: Major depression in remission; AHG09Kwlns iption: Major depression in remission; ; Not Available [facility] 12:18:41 Carcinoma in situ of uterine cervix 00346112 Active 2019 Carcinoma in situ of uterine cervix; MAR8Huuenj ption: Carcinoma in situ of uterine cervix; ZRC23Oocyu iption: Carcinoma in situ of uterine cervix; ; Not Available [facility] 5 12:18:41 Environme ntal allergy 879519071 Active 2016 Environmen janel allergies; ZMK0Xgzakp ption: Environmen janel allergies; FFV06Wmytw iption: Environmen janel allergies; ; Not Available [facility] 5 12:18:41 Sj??gren' s syndrome 19682541 Active 2019 Sjogren's disease; PLQ6Xbqhkz ption: Sjogren's disease; PJI57Sxrvb iption: Sjogren's disease; ; Not Available [facility] 5 12:18:41 History of procedure 416434615 Active 2021 Echocardio gram 02/18/22; ZFY7Uufchp ption: History of echocardio gram; HAQ72Nlazx iption: History of echocardio gram; BMD: 09/24/19; FGF6Ulmidr ption: History of bone density study; HOC58Heluj iption: History of bone density study; ; Start Date : 09/30/2019 Not Available [facility] 5 12:18:42 Hypergamm aglobulin emia 537394427 Active 2019 Hypergamma globulinem ia; IVF0Ntonpm ption: Hypergamma globulinem ia; MKR59Mxnmq iption: Hypergamma globulinem ia; ; Not Available [facility] 5 12:18:42 Cerebrova scular accident 688122311 Active 2017 CVA (cerebral vascular accident); NJV2Vlchvi ption: CVA (cerebral vascular accident); CFC17Osubq iption: CVA (cerebral vascular accident); ; Not Available [facility] 5 12:18:43 Anti-nucl ear factor detected 630856149 Active 2014 ANDRADE positive; USD7Hvmqno ption: ANDRADE positive; MYQ40Skten iption: ANDRADE positive; ; Not Available [facility] 5 12:18:43 Malignant tumor of vagina 027957595 Active 2023 MILVIA Saunders [address], [place], [address] , [place] [facility] 4 12:01:12 Degenerat brooklynn joint disease involving multiple joints 089336568 Active 2023 MILVIA Saunders [address], [place], [address] , [place] [facility] 4 12:01:13 Multinodu lar goiter 234364209 Active 2023 MILVIA Saunders [address], [place], [address] , [place] [facility] 4 12:01:16 Postmenop ausal osteopeni a 774002367 Active 2023 MILVIA Saunders [address], [place], [address] , [place] [facility] 4 12:01:17 Recurrent major depressio n in full remission 27371300 Active 2023 MILVIA Saunders [address], [place], [address] , [place] [facility] 4 12:01:18 Systemic lupus erythemat osus 54198550 Active 2023 MILVIA Saunders [address], [place], [address] , [place] [facility] 4 12:01:21 History of cerebrova scular accident 659830936 Active 2023 MILVIA Saunders [address], [place], [address] , [place] [facility] 4 12:01:21 Essential hypertens ion 41215035 Active 2023 MILVIA Saunders [address], [place], [address] , [place] [facility] 4 12:01:22 Problem Notes None recorded. Procedures Surgical History Date Name Laterality Status Provider Name and Address Organization Details Recorded Time 10/26/201 5 Colsc flx 1st tndsc dilat completed Not Available [facility] 01/21/2025 04:05:29 Removal of tonsils completed Not Available [facility] 01/21/2025 04:05:29 Imaging Results Imaging Date Name Status LastModified by Barb robbins Details LastModified Time 10/31/2024 XR, chest, 1 view completed [facility] [address], [place], [address], 11/05/2024 16:49:38 Procedure Notes None recorded. Medical Equipment None Reported. Allergies Allergen ID Allergen Name Allergen Category Reaction Reaction Severity Criticality Documentation Date Start Date Code Code System Note Provider Name and Address Organization Details Recorded Time 43901 adhesive tape environme nt,medica tion other Not available Not available 12/23/20242022 54212 UNK React ion: Other (See Comme nts); Comme nt: dfnam e: Myles salas; dlnam e: Martinez; Physi cian_ Addr1 : [address]; Physi cian_ Addr2 : [address]; Physi cian_ City: [place]; Physi cian_ State : [place]; Physi cian_ Posta lCode : [address] ; Physi cian_ Phone : tel:[phone]; Physi cian_ Fax: fax:[phone]; NPI: [id number] ; Physi cian_ [place]: PA-C; Physi cian_ Speci alty: Gener al Pract ice; ; Not Available [facility] 5 08:33:26 71521 Substance with sulfonami de structure and antibacte rial mechanism of action (substanc e) medicatio n Not available Not available Not available 12/23/20242014 82321 8003 SNOMED Comme nt: dfnam e: Ryan delatorre; dlnam e: Govon i; Physi cian_ [place]: RN; Physi cian_ Speci alty: Joel bonilla Nurse ; ; Not Available [facility] 5 08:33:26 00256 sulfanila mide medicatio n Not available Not available Not available 12/23/20242022 59899 RxNorm Comme nt: NPI: [id number] ; ; Not Available [facility] 08:33:27 Medications Name Sig Start Date Stop Date Status Note LastModified by Organization Details LastModified Time quetiapin e 25 mg tablet 1 qhs prn active Not Available Not Available No t Available cetirizin e 10 mg tablet Take 1 tablet (10 mg total) by mouth daily. active NPI: [id number]; Not Available Not Available Not Available aspirin 325 mg tablet Take 1 tablet (325 mg total) by mouth. active NPI: [id number]; Not Available Not Available Not Available Imuran 50 mg tablet Take 1 tablet every day by oral route. 10/08 completed Not Available Not Available Not Available clobetaso l 0.05 % topical cream APPLY A THIN LAYER TO THE AFFECTED AREA(S) BY TOPICAL ROUTE 2 TIMES PER DAY 10/07 completed Not Available Not Available Not Available spironola ctone 25 mg tablet Take 1 tablet every day by oral route. active Not Available Not Available No t Available Mobic 15 mg tablet Take 1 tablet every day by oral route. 10/08 completed Not Available Not Available Not Available famotidin e 20 mg tablet Take 1 tablet (20 mg total) by mouth every night at bedtime. active NPI: [id number]; Not Available Not Available Not Available amlodipin e 10 mg tablet Take 1 tablet by mouth once daily 2024 active Not Available Not Available Not Avai lable pantopraz ole 40 mg tablet,de layed release Take 1 tablet every day by oral route in the morning, for take on empty stomach. active Not Available Not Available No t Available triamcino lone acetonide 55 mcg nasal spray aerosol spray or apply inside Nose. active NPI: [id number]; Not Available Not Available Not Available clobetaso l 0.05 % topical ointment APPLY A THIN LAYER TO AFFECTED AREA(S) TWICE DAILY FOR A WEEK, THEN TWICE A WEEK active Not Available Not Available No t Available estradiol 0.01% (0.1 mg/gram) vaginal cream INSERT 2 GRAMS VAGINALL Y TWICE A WEEK active Not Available Not Available No t Available olmesarta n 40 mg tablet Take 1 tablet by mouth once daily active Not Available Not Available No t Available docosahex aenoic acid (dha)-epa 120 mg-180 mg capsule Take 1,000 mg by mouth. active NPI: [id number]; Not Available Not Available Not Available rosuvasta tin 10 mg tablet Take 1 tablet by mouth once daily 2024 active Not Available Not Available Not Avai lable duloxetin e 60 mg capsule,d elayed release Take 1 capsule by mouth once daily active Not Available Not Available No t Available Vitamin D3 active Not Available Not Available Not Available [place] 3 1000 am 1000pm active Not Available Not Available No t Available quetiapin e 50 mg tablet TAKE 1 TO 2 TABLETS BY MOUTH AT BEDTIME 2024 active Not Available Not Available Not Avai lable cholecalc iferol (vitamin D3) 25 mcg (1,000 unit) tablet Take 1 tablet (1,000 Units total) by mouth daily. active dfname: Historic al; dlname: Provider ; [employer] n_Addr1: [address] [place]; [employer] n_City: [place]; [employer] n[place]State: [place]; [employer] n_Postal Code: [id number]; NPI: [id number]; [employer] n_Suffix : ; [employer] n_Phone: tel:[phone]; Not Available Not Available Not Available cetirizin e 10 mg capsule Take by oral route. active Not Available Not Available No t Available Tila Allergy 180 mg tablet Take 1 tablet every day by oral route. active Not Available Not Available No t Available aspirin 81 mg capsule Take 1 capsule 3 times a day by oral route. active Not Available Not Available No t Available Slow Fe 137 mg (45 mg iron) tablet,ex tended release Take by oral route. active Not Available Not Available No t Available Vitals Date Recorded Heart rate Body temperature Oxygen saturation Oxygen saturation in Arterial blood by Pulse oximetry Body height Body mass index (BMI) Body weight Systolic blood pressure Diastolic blood pressure Provider Name and Address Organization Details Last Updated DateTime 4 77 /min 98.1 [degF] 99 % 99 % 163.83 cm 26.2 kg/m2 04408.8 2 g 119 mm[Hg] 74 mm[Hg] Ruth Umaña [place] - [facility] 4 11:49:50 Social History Question Answer Notes LastModified by Organizat ion Details LastModified Time Tobacco Smoking Status Current Every Day Smoker Not Available [facility] 01/21/2025 04:04:10 What Is Your Level Of Alcohol Consumption? None [email or web address] Information not available 01/21/2025 Sex: Unknown Functional Status None recorded. Mental Status None recorded. Family History Relationship Description Onset Age of this Age Resolved Age Notes LastModified by Organization Details LastModified Time Sister Obesity Obesit y; Member s: Half-S ister Not available 01/21/2025 04:06:16 Mother Fibromyalgia Fibrom yalgia ; Member s: Mother ; Commen ts: Brain Not available 01/21/2025 04:06:16 Mother Aneurysm Aneury sm; Member s: Mother ; Commen ts: Brain Not available 01/21/2025 04:06:16 Mother Osteoarthrit is Osteoa rthrit is; Member s: Mother ; Commen ts: Brain Not available 01/21/2025 04:06:17 Father Problem No Sig Med Hx; Member s: Father Not available 01/21/2025 04:06:16 Notes:01/21/2025: Half-Siste r: Depression, Early Mother: Depression, Brain, Lung cancer, Brain Medical History No medical history recorded. Gynecological HistoryNo gynecological history recorded. Obstetrics History GPAL:G 0 P 0 0 0 0 Immunizations Vaccine Type Date Status Note Provider Nam e and Address Organization Details Recorded Time pneumococcal polysaccharide PPV23 8 completed Not Available [facility] 12/23/2024 12:38:41 Influenza, split virus, quadrivalent, PF 6 completed Not Available [facility] 12/23/2024 12:38:41 Influenza, split virus, quadrivalent, PF 8 completed Not Available [facility] 12/23/2024 12:38:41 Tdap 0 completed Not Available [facility] 12/23/2024 12:38:41 Influenza, split virus, quadrivalent, PF 5 completed Not Available [facility] 12/23/2024 12:38:42 Td (adult), 5 Lf tetanus toxoid, preservative free, adsorbed 0 completed Not Available [facility] 12/23/2024 12:38:42 Influenza, split virus, quadrivalent, preservative 0 completed Not Available [facility] 12/23/2024 12:38:42 COVID-19, mRNA, LNP-S, PF, 30 mcg/0.3 mL dose 1 completed Not Available [facility] 12/23/2024 12:38:42 COVID-19, mRNA, LNP-S, PF, 30 mcg/0.3 mL dose 1 completed Not Available [facility] 12/23/2024 12:38:42 Td (adult), 5 Lf tetanus toxoid, preservative free, adsorbed 4 completed Not Available [facility] 12/23/2024 12:38:42 COVID-19, mRNA, LNP-S, PF, marlon-sucrose, 30 mcg/0.3 mL 3 completed Not Available [facility] 12/23/2024 12:38:42 Influenza, split virus, quadrivalent, preservative 3 completed Not Available [facility] 12/23/2024 12:38:42 Influenza, split virus, trivalent, preservative 3 completed Not Available [facility] 12/23/2024 12:38:42 Pneumococcal conjugate PCV20, polysaccharide FER131 conjugate, adjuvant, PF 2 completed Not Available [facility] 12/23/2024 12:38:42 Influenza, split virus, quadrivalent, PF 1 completed Not Available [facility] 12/23/2024 12:38:43 COVID-19, mRNA, LNP-S, PF, 30 mcg/0.3 mL dose 1 completed Not Available [facility] 12/23/2024 12:38:43 Influenza, split virus, trivalent, preservative 1 completed Not Available [facility] 12/23/2024 12:38:43 Influenza, MDCK, quadrivalent, PF 2 completed Not Available [facility] 12/23/2024 12:38:43 zoster recombinant 3 completed Not Available [facility] 12/23/2024 12:38:43 zoster live 3 completed Not Available [facility] 12/23/2024 12:38:43 Influenza, live, quadrivalent, intranasal 2 completed Not Available [facility] 12/23/2024 12:38:43 Past Encounters Encounter ID Performer Location Encounter Start Date Encounter Closed Date Diagnosis/Indication Diagnosis SNOMED-CT Code Diagnosis ICD10 Code Diagnosis Note [id number] MILVIA Saunders [id number] [address] [place] [address] 10/07/2024 11:32:54 10/18/2024 09:19:17 Cough 08211399 R05.9 Essential hypertension 81852210 I10 History of cerebrovascular accident 465193578 Z86.73 Systemic l upus erythematosus 89900966 M32.9 Recurrent major depression in full remission 60546227 F33.42 Postmenopa usal osteopenia 690473786 M85.80 Multinodular goiter 2375 54494 E04.2 Degenerati ve joint disease involving multiple joints 903791808 M15.9 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 Active or passive immunization 160455695 Z23 Adult heal th examination 187713537 Z00.01 Gastroesop hageal reflux disease without esophagitis 265274115 K21.9 Screening for cardiovascular system disease 877862025 Z13.6 Screening for malignant neoplasm of colon 352463121 Z12.11 Screening for osteoporosis 396620255 Z13.820 Screening mammography 24 082890 Z12.31 Health Concerns Section Related Observation LastModified by Organization Detai ls LastModified Time None Recorded Concern Status LastModified by Organization Details LastModified Time None Recorded Advance Directives Directive None Recorded Payers Encounter Date Sequence Insurance Name Policy Number Policy Wade Covered Member ID Wade Member ID Guarantor Name 10/07/2024 2 [place] [id number] Marily Mack Peg [id number] Marily Mack Peg 10/07/2024 1 [place] Marily Mack Peg [id number] Marily M Peg Notes Date Note Type Note Provider Name and Address Organization Details Recorded Time 10/07/2024 text/html CPXSee full hx CPX Epic 10/04/2023 MILVIA Saunders [address] [place] [address], [place], [address], [facility] 10/19/2024 12:02:09 OBGyn Episode No OBEpisode recorded.
--- OUTSIDE RECORDS SUMMARY | 2025-02-18 15:51 | XMS_ITS | Clinical Summary ---
Author Organization [facility] Address [address] [place] [address] Care Team Providers Care Safe And Vault Installer Name Role Phone Margy Martinez Primary Care Provider [phone] Ruth Diaz MD Unavailable [phone] Genesis Traore RN Unavailable Allergies Active Allergy Reactions Criticality Noted Date Comments Adhesives/Tape Other (See Comments) 02/01/2023 blisters Sulfa Antibiotics Rash/Dermatitis Low 01/28/2021 Cream caused a rash Medications Medication Sig Dispensed Refills Start Date End Date Status DULOXETINE HCL PO Take 60 mg by mouth every morning. 04/21/2015 Active rosuvastatin (CRESTOR) 10 MG tablet 1 tablet (10 mg total) every evening. 11/26/2014 Active amLODIPine (NORVASC) 10 MG tablet Take 1 tablet (10 mg total) by mouth every evening. Active olmesartan (BENICAR) 40 MG tablet Take 1 tablet (40 mg total) by mouth every evening. Active QUEtiapine (SEROquel) 25 MG tablet Take 1 tablet (25 mg total) by mouth nightly. Active Baylis 3 1000 MG Cap capsule Take 1,000 mg by mouth 2 (two) times a day. Administer whole. Do not break. Active famotidine (PEPCID) 20 MG tablet Take 1 tablet (20 mg total) by mouth nightly. Active Triamcinolone Acetonide (NASACORT AQ NA) 2 sprays into each nostril every evening. Active cetirizine (ZyrTEC) 10 MG tablet Take 1 tablet (10 mg total) by mouth every evening. Active cholecalciferol (CHOLECALCIFEROL) 25 MCG (1000 UT) tablet Take 1 tablet (1,000 Units total) by mouth 2 (two) times a day. Active docusate sodium (COLACE) 100 MG capsule Take 2 capsules (200 mg total) by mouth every evening. Active ferrous Sulfate dried (SLOW FE) 160 (50 Fe) MG Tab CR Take 1 tablet (160 mg total) by mouth every morning with breakfast. Active aspirin (AGGIE ASPIRIN) 325 MG tablet Take 1 tablet (325 mg total) by mouth daily. Active fluconazole (diFLUcan) 150 MG tabletIndications:Bernice gnant neoplasm of vagina (HCC) Take 1 tablet (150 mg total) by mouth once. 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 2 times per week 42.5 g 5 09/30/2024 Active PANTOprazole (PROTONIX) 40 MG EC tabletIndications:Erik roesophageal reflux disease without esophagitis 1 tablet (40 mg total). 11/29/2024 Active Active Problems Problem Noted Date Diagnosed [...] III (vaginal intraepithelial neoplasia grad e III) Encounters Date Type Department Care Team Description 01/10/2025 1:24 PM EST - 01/10/2025 11:59 PM EST Hospital Encounter [facility] Radiology [address] [place] [address] Fidel Waller PA-C Discharge Disposition: Home or Self Care 01/10/2025 12:38 PM EST - 01/10/2025 1:23 PM EST Hospital Encounter [facility] Radiology [address] [place] [address] Fidel Waller PA-C Vaginal cancer (HCC); Abnormal finding on imaging Discharge Disposition: Home or Self Care 12/24/2024 Telephone [facility] Division of Gynecologic Oncology in [address] [address] Fidel Waller PA-C 12/24/2024 Orders Only [facility] Division of Gynecologic Oncology in [address] [address] Fidel Waller PA-C Vaginal cancer (HCC) (Primary Dx); Abnormal finding on imaging 12/23/2024 Telephone [facility] Division of Gynecologic Oncology in [address] [place] [address] Martina Nelson MD Results Request 12/17/2024 10:20 AM EST Office Visit [facility] Division of Gynecologic Oncology in [address] [place] [address] Radha Diego APRN Semrau, Chelsea Jeanette, PA-C 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) (Primary Dx); Vaginal cancer (HCC); Gastroesophageal reflux disease without esophagitis 12/17/2024 Travel from Last 3 Months Family History Medical History Relation Name Comments Vaginal cancer Maternal Grandmother Lung cancer Maternal Uncle 1 Joel Lung cancer Maternal Uncle 2 Jose Lung cancer Maternal Uncle 3 Danni Lung cancer Mother Cancer Sister Neuroendocrine tumor of the vagina Relation Name Status Comments Maternal Grandmother Maternal Uncle 1 Joel Maternal Uncle 2 Jose Maternal Uncle 3 Danni Mother Sister Social History Tobacco Use Types Packs/Day Years Used Date Smoking Tobacco: Former Cigarettes Q uit: 1998 Smokeless Tobacco: Never Tobacco Cessation:Counseling Given: Not Answered Comments:quit 1999 Alcohol Use Standard Drinks/Week Comments [...] Orientation Heterosexual (straight) 12/30 11:25 AM EST Last Filed Vital Signs Vital Sign Reading Time Taken Comments Blood Pressure 129/61 12/17/2024 10:18 AM EST Pulse 82 12/17/2024 10:18 AM EST Temperature 36.4 ??C (97.5 ??F) 12/17/2024 1 0:18 AM EST Respiratory Rate 16 04/10/2024 11:4 0 AM EDT Oxygen Saturation 100% 12/17/2024 10: 18 AM EST Inhaled Oxygen Concentration - - Weight 71.1 kg (156 lb 12.8 oz) 025 10:18 AM EST Height 162.6 cm (5' 4 ) 12/17/2024 10:1 8 AM EST Body Mass Index 26.91 12/17/2024 10:18 AM EST Plan of Treatment Upcoming Encounters Date Type Department Care Team (Esme Contact Info) Description 03/17/2025 1:40 PM EDT Office Visit [facility] Division of Gynecologic Oncology in [address] [place] [phone] Martina Nelson MD 85 [facility] [address] [place] [address] Health Maintenance Due Date Last Done Comments Hepatitis C Virus Screening 1966 HIV Screening 1979 DTaP/Tdap/Td Vaccines (1 - Tdap) 1985 Hepatitis B Vaccines (1 of 3 - 19+ 3-dose series) 1985 Pneumococcal Vaccines 50+ (1 of 2 - PCV) 1985 Zoster (Shingles) Vaccine (1 of 2) 1985 Mammogram 2006 Influenza Vaccine 06/13/2024 09/29/2023, , 09/09/2022, Additional history exists COVID-19 Vaccine (2023-2 5 season) 2024 09/29/2023, 09/06/2021, 01/19/2021, Additional history exists Pap Smear (Ages 21-65) 12/17/2027 , 07/31/2024, 09/20/2022, Additional history exists Colonoscopy 03/14/2033 03/14/2023 Procedures Procedure Name Priority Date/Time Associated Diagnosis Comments PET/CT F18 FDG SKULL BASE TO MID-THIGH - SUBSEQUENT TREATMENT Routine 01/10/2025 3:49 PM EST Vaginal cancer (HCC) Abnormal finding on imaging POCT GLUCOSE, FINGERSTICK (CHARGE) Routine 01/10/2025 1:02 PM EST HPV MRNA, E6/E7, POST-HYST, VAGINAL W/REFL Routine 12/17/2024 10:57 AM EST 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 ??Previously visualized focus of mild FDG avidity in the pancreatic body is no longer present. 2. ??Around the fiduciary marker, unchanged minimal inhomogeneous uptake pronounced anteriorly and inferiorly with no anatomic correlate; probably posttreatment with associated reconstruction changes. 3. ??Most probably infectious/inflammatory etiology related asymmetric uptake in the right nasopharyngeal soft tissue. Suggest clinical correlation including local examination. I personally reviewed the images and the resident's preliminary report and AGREE with the report as it is now presented ([email or web address]). Narrative 01/13/2025 5:16 PM EST EXAMINATION: FLUORINE-18 FDG PET/CT SCAN CLINICAL INFORMATION: Vaginal cancer; Abnormal finding on imaging; focal PET avidity in the pancreas 02/2023, reassess. 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 Robotic-assisted hysterectomy and bilateral salpingo-oophorectomy and apical 2020, for atypical squamous cells cannot exclude high-grade squamous intraepithelial lesion on cytologic smear of cervix. TECHNIQUE: 61 minutes following the intravenous administration of 10.9 mCi of fluorine 18 FDG, images from the skull base to midthigh were obtained using a combined PET/CT scanner with CT scan based attenuation correction. No oral or intravenous contrast was administered. Transverse, coronal, sagittal, and volume reconstruction projections were obtained. The patient's blood glucose determined by a finger stick was 82 mg/dL immediately prior to injection. The radiotracer was injected intravenously through the left hand without any complications. Total CT exam dose-length product 285.5 mGy-cm. COMPARISON/CORRELATION: FDG PET/CT from 02/28/2023. MRI pelvis from 09/27/2023. FINDINGS: SUV max REFERENCE: Blood: 2.6; previously 2.8 . Liver: 3.9; previously 3.8 HEAD AND NECK: Asymmetric intense increased metabolism in the right fossa of Rosenmuller with associated soft tissue fullness; SUV max 13.2, previously SUV max 6; in retrospect similar asymmetry but with much milder FDG avidity. In addition, on the current study, there is hypermetabolism in the adjacent skull base soft tissue with no anatomic correlate; new from prior. No tracer avid adenopathy. CHEST: Ports and Devices: None Lungs: No abnormal radiotracer uptake. Pleura: No pleural effusion or pneumothorax. Lymph Nodes: Mildly tracer avid subcentimeter L>R, axillary as well as retropectoral lymph nodes bilaterally, similar to prior. No tracer-avid mediastinal, hilar or internal mammary lymphadenopathy. Mediastinum: No abnormal radiotracer uptake. There is no significant pericardial effusion/thickening. Breasts/Chest Wall: No abnormal radiotracer uptake. ABDOMEN/PELVIS: Liver/Biliary System: No focal tracer-avid liver lesion. The gallbladder and liver are unremarkable. Pancreas: Previously visualized focus of mild FDG avidity in the pancreatic body is no longer present. No pancreatic ductal dilatation or focal lesion. Spleen: No abnormal radiotracer uptake. No splenomegaly. Adrenal Glands: No abnormal radiotracer uptake. Kidneys: No abnormal radiotracer uptake. Punctate nonobstructing calculus in the inferior right renal pelvis. No hydronephrosis or hydroureter. Bowel: No abnormal radiotracer uptake. There is no significant bowel dilatation to suggest obstruction. ?? Lymph Nodes: No tracer avid retroperitoneal, mesenteric or pelvic and/or groin lymphadenopathy. Pelvic Organs: Patient is status post total hysterectomy and bilateral salpingo-oophorectomy. Around the fiduciary marker, unchanged minimal inhomogeneous uptake pronounced anteriorly with no anatomic correlate, SUV max 6.0 (image 267), previously 6.8. MUSCULOSKELETAL: No FDG avid or suspicious osseous lesion. Decreased FDG avidity to the adjacent background, at the previously noted mild focal hypermetabolism along the left seventh costochondral junction. VASCULAR: The aorta is normal caliber. Mild atherosclerosis of the aorta and its branches. Procedure Note Anh Hatfield MD - 01/13/2025 EXAMINATION: FLUORINE-18 FDG PET/CT SCAN CLINICAL INFORMATION: Vaginal cancer; Abnormal finding on imaging; focal PET avidity in the pancreas 02/2023, reassess. 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 Robotic-assisted hysterectomy and bilateral salpingo-oophorectomy and apical 2020, for atypical squamous cells cannot exclude high-grade squamous intraepithelial lesion on cytologic smear of cervix. TECHNIQUE: 61 minutes following the intravenous administration of 10.9 mCi of fluorine 18 FDG, images from the skull base to midthigh were obtained using a combined PET/CT scanner with CT scan based attenuation correction. No oral or intravenous contrast was administered. Transverse, coronal, sagittal, and volume reconstruction projections were obtained. The patient's blood glucose determined by a finger stick was 82 mg/dL immediately prior to injection. The radiotracer was injected intravenously through the left hand without any complications. Total CT exam dose-length product 285.5 mGy-cm. COMPARISON/CORRELATION: FDG PET/CT from 02/28/2023. MRI pelvis from 09/27/2023. FINDINGS: SUV max REFERENCE: Blood: 2.6; previously 2.8 . Liver: 3.9; previously 3.8 HEAD AND NECK: Asymmetric intense increased metabolism in the right fossa of Rosenmuller with associated soft tissue fullness; SUV max 13.2, previously SUV max 6; in retrospect similar asymmetry but with much milder FDG avidity. In addition, on the current study, there is hypermetabolism in the adjacent skull base soft tissue with no anatomic correlate; new from prior. No tracer avid adenopathy. CHEST: Ports and Devices: None Lungs: No abnormal radiotracer uptake. Pleura: No pleural effusion or pneumothorax. Lymph Nodes: Mildly tracer avid subcentimeter L>R, axillary as well as retropectoral lymph nodes bilaterally, similar to prior. No tracer-avid mediastinal, hilar or internal mammary lymphadenopathy. Mediastinum: No abnormal radiotracer uptake. There is no significant pericardial effusion/thickening. Breasts/Chest Wall: No abnormal radiotracer uptake. ABDOMEN/PELVIS: Liver/Biliary System: No focal tracer-avid liver lesion. The gallbladder and liver are unremarkable. Pancreas: Previously visualized focus of mild FDG avidity in the pancreatic body is no longer present. No pancreatic ductal dilatation or focal lesion. Spleen: No abnormal radiotracer uptake. No splenomegaly. Adrenal Glands: No abnormal radiotracer uptake. Kidneys: No abnormal radiotracer uptake. Punctate nonobstructing calculus in the inferior right renal pelvis. No hydronephrosis or hydroureter. Bowel: No abnormal radiotracer uptake. There is no significant bowel dilatation to suggest obstruction. Lymph Nodes: No tracer avid retroperitoneal, mesenteric or pelvic and/or groin lymphadenopathy. Pelvic Organs: Patient is status post total hysterectomy and bilateral salpingo-oophorectomy. Around the fiduciary marker, unchanged minimal inhomogeneous uptake pronounced anteriorly with no anatomic correlate, SUV max 6.0 (image 267), previously 6.8. MUSCULOSKELETAL: No FDG avid or suspicious osseous lesion. Decreased FDG avidity to the adjacent background, at the previously noted mild focal hypermetabolism along the left seventh costochondral junction. VASCULAR: The aorta is normal caliber. Mild atherosclerosis of the aorta and its branches. IMPRESSION: Since FDG PET/CT February 28, 2023; 1. Previously visualized focus of mild FDG avidity in the pancreatic body is no longer present. 2. Around the fiduciary marker, unchanged minimal inhomogeneous uptake pronounced anteriorly and inferiorly with no anatomic correlate; probably posttreatment with associated reconstruction changes. 3. Most probably infectious/inflammatory etiology related asymmetric uptake in the right nasopharyngeal soft tissue. Suggest clinical correlation including local examination. I personally reviewed the images and the resident's preliminary report and AGREE with the report as it is now presented ([email or web address]). Fidel Waller PA-C IMG PET ORD ERABLES * POCT Glucose, Fingerstick (01/10/2025 1:02 PM EST) POC Glucose 82 65 - 99 mg/dL 01/11/2025 10:56 AM EST Blood specimen / Unknown 01/10/2025 1:02 PM EST 01/11/2025 10:56 AM EST Fidel Waller PA-C POINT OF [place] RE TEST ORDERABLES HOSPITAL LAB See Below * HPV mRNA E6/E7, Post-Hyst, Vaginal w/Reflex (12/17/2024 10:57 AM EST) HPV mRNA E6/E7, Vaginal Not Detected [facility] Comment: REFERENCE RANGE: NOT DETECTED ? For women with a hysterectomy and previous history of cervical cancer or, with MINNIE 2 or higher within the last 20 years, screening with cytology every 3 years for 20 years after the initial post treatment surveillance period is reasonable. The role of HPV testing has not been clarified in this population. Methodology: Vp Client Services-Mediated Amplification ? This assay detects E6/E7 viral messenger RNA (mRNA) from 14 high-risk HPV types (16,18,31,33,35,39,45,51, 52,56,58,59,66,68). ? The analytical performance characteristics of this assay have been determined by [facility] [place]. The modifications have not been cleared or approved by the FDA. This assay has been validated pursuant to the CLIA regulations and is used for clinical purposes. ? For additional information please refer to http://education.[employer]/faq/ILQ103o0 (This link is being provided for informational/ educational purposes only.) ? 12/17/2024 10:5 7 AM EST 12/18/2024 2:08 AM EST Fidel Waller PA-C LAB AMB PAT H/CYTO ORDERABLES [facility] [address] [place] [address] * Test Authorization (12/17/2024 10:57 AM EST) Test(s) Ordered on Requisition HPV mRNA E6E7 POST HYST [facility] Test Code 93,136 [facility] Client Contact FIDEL Steiner [facility] Report Always Message Signature [facility] Comment: The laboratory testing on this patient was verbally requested or confirmed by the ordering physician or his or her authorized outbound sales representative after contact with an employee of [facility]. Federal regulations require that we maintain on file written authorization for all laboratory testing. ??Accordingly we are asking that the ordering physician or his or her authorized outbound sales representative sign a copy of this report and promptly return it to the client services director. Signature: Comment [facility] Comment: Please fax this signed form to [phone]. Please do not attempt to return this document by other methods. Documents will not be viewed by a outbound sales representative. Please do not use this fax number for other service requests. 12/17/2024 10:5 7 AM EST 12/18/2024 2:08 AM EST Fidel Angelika Waller PA-C HX LAB [facility] [address] [place] [phone] * ThinPrep Pap Test (Certified Surgical Technologist) with HPV Screen (12/17/2024 10:57 AM EST) Clinical Information [facility] Comment:H/O VAGINAL CANCER A ND VULVAR NEOP LMP: [facility] Comment:N/A Previous PAP: [facility] Comment:[id number] Previous Biopsy [facility] Comment:NONE GIVEN Source: [facility] Comment:Vagina Statement of Adequacy: [facility] Comment: Satisfactory for evaluation. Endocervical/transformation zone component present. Interpretation/Res ult: [facility] Comment: Cytology Results: Negative for intraepithelial lesion or malignancy. Comment: [facility] Comment: This Pap test has been evaluated with computer assisted technology. Java Technical Manager: Dami benjamin [facility] Comment: DCR, CT(ASCP) CT screening location: [address] ??[address] Pathologist: Neeraj [facility] Comment: Julia Centeno M.D., (electronic signature) [facility] [phone] Comment [facility] Comment: EXPLANATORY NOTE: The Pap is a screening test for cervical cancer. It is not a diagnostic test and is subject to false negative and false positive results. It is most reliable when a satisfactory sample, regularly obtained, is submitted with relevant clinical findings and history, and when the Pap result is evaluated along with historic and current clinical information. Hpv Mrna E6E7 Not Detected Not Detected [facility] Comment: Methodology: Vp Client Services-Mediated Amplification This assay detects E6/E7 viral messenger RNA (mRNA) from 14 high-risk HPV types (16,18,31,33,35,39,45,51,52,56,58,59,66,68). Cervical sources are required for HPV testing. If a vaginal source from a patient who has had a total hysterectomy with removal of cervix was submitted, please contact the testing laboratory for alternative testing options. For additional information, please refer to http://education.elicit/faq/GRC219x9 (This link if provided for information/ educational purposes only.) 12/17/2024 10:5 7 AM EST 12/18/2024 2:08 AM EST Fidel Waller PA-C LAB AMB PAT H/CYTO ORDERABLES [facility] [address] [place] [address] [facility] [address] [place] [phone] from Last 3 Months Advance Directives * Full Code (Latest Code Status on File) Date Activated Date Inactivated Comments 02/01/2023 8:53 AM 03/14/2023 8:04 AM * Full Code Date Activated Date Inactivated Comments 12/21/2022 8:22 AM 02/01/2023 8:13 AM * Full Code Date Activated Date Inactivated Comments 02/15/2021 6:09 AM 12/21/2022 7:30 AM Question Answer Comments Decision Thoroughly Discussed with: Patient Care Teams Safe And Vault Installer Relationship Specialty Start Date End Date Margy Martinez PA PCP - General 02/15/21 Ruth Diaz MD [address] [place], [place] [id number] Obstetrics and Gynecology 12/05/22 Genesis Traore RN [address] [place] [address] Oncology Nurse Navigator Medical Oncology 02/17/23 Jesus Manuel Calvillo Clinician Rheumatology 12/06/22
--- OUTSIDE RECORDS SUMMARY | 2025-02-18 15:51 | XMS_ITS | Encounter Summary ---
Author Organization [facility] Address [address] [place] [address] Care Team Providers Care Coil Former Name Role Phone Margy Martinez Primary Care Provider [phone] Ruth Diaz MD Unavailable Genesis Traore RN Unavailable Encounter Details Date Type Department Care Team (Late st Contact Info) Description 05/22/[address] [facility] Radiation Oncology [address] [place] [phone] Marcin Avila MD [address] [place] [phone] Social History Tobacco Use Types Packs/Day [...] Description 03/17/2025 1:40 PM EDT Office Visit [facility] Division of Gynecologic Oncology in [place] [address] [facility] [address] [place] [address] Martina Nelson MD 85 [facility] [address] [place] [address] documented as of this encounter Visit Diagnoses Not on filedocumented in this encounter Care Teams Coil Former Relationship Specialty Start Date End Date Margy Martinez PA PCP - General 02/15/21 Ruth Diaz MD [address] [place] [address] Obstetrics and Gynecology 12/05/22 Genesis Traore, CELIA 85 [facility] [address] [place] [address] Oncology Nurse Navigator Medical Oncology 02/17/23 Jesus Manuel Calvillo Clinician Rheumatology 12/06/22 documented as of this encounter
--- OUTSIDE RECORDS SUMMARY | 2025-02-18 15:51 | XMS_ITS | Encounter Summary ---
Author Organization [facility] Address [address] [place] [address] Care Team Providers Care Quarry Manager Name Role Phone Margy Martinez Primary Care Provider [phone]- [phone] Ruth Diaz MD Unavailable Genesis Traore RN Unavailable Encounter Details Date Type Department Care Team (Late st Contact Info) Description 03/16/2023 Scanned Document [facility] Radiation Oncology [address] [place] [phone] Provider, Generic Social History Tobacco Use Types Packs/Day Years [...] 1:40 PM EDT Office Visit [facility] Division of Gynecologic Oncology in [place] 85 [facility] [address] [place] [phone] Chris Nelson MD 85 [facility] [address] [place] [address] documented as of this encounter Visit Diagnoses Not on filedocumented in this encounter Care Teams Quarry Manager Relationship Specialty Start Date End Date Margy Martinez PA PCP - General 02/15/21 Ruth Diaz MD [address] [place] [address] Obstetrics and Gynecology 12/05/22 Genesis Traore, RN 85 [facility] Ja [address] [place] [address] Oncology Nurse Navigator Medical Oncology 02/17/23 Jesus Manuel Calvillo Clinician Rheumatology 12/06/22 documented as of this encounter
== END 2025-02-18 14:02 | disposition home or self-care (01) ==
LOC: HO.RHES 13:03
PROVIDERS: PCP Physician Assistant Medical; Visit Provider Internal Medicine Rheumatology
DX: M32.9 Systemic lupus erythematosus, unspecified (principal); M79.18 Myalgia, other site; M18.0 Bilateral primary osteoarthritis of first carpometacarpal joints; M25.562 Pain in left knee
CPT/HCPCS: 99214; G2211

== ENCOUNTER 2025-05-20 13:36 | Outpatient (AMB) | payer MEDICARE, SELFPAY ==
--- NOTE | 2025-05-20 13:36 | MHC.OFFVIS ---
Vital Signs 05/20/25 13:37 Height 5 ft 5 in Weight 155 lb 13.869 oz BMI 25.9 BP 120/80 Blood Pressure Location Rt brachial Position Sitting Pulse 79 Pulse Source Pulse Oximeter Pulse Oximetry (%) 98 Oxygen Delivery Method Room Air Intake Visit Reasons: 3 Months Intake Note: Patient presents today for lupus follow up. Allergies Sulfa (Sulfonamide Antibiotics) Allergy (Mild, Verified 05/20/25 13:37) Rash HPI HPI 3 Months: Details: Knee pain is better. She is active. 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 She denies fevers, dyspnea, pleurisy, rash, urinary symptoms, joint pain, joint swelling, Raynaud's phenomenon. [facility] Medical History Cancer Lupus (systemic lupus erythematosus) Surgical History Hx of hysterectomy Hx of tonsillectomy Physical Exam Vital Signs: Last Vital Signs Pulse 79 05/20/25 13:37 BP 120/80 05/20/25 13:37 Pulse Ox 98 05/20/25 13:37 Oxygen Delivery Method Room Air 05/20/25 13:37 BMI result Body Mass Index 25.9 Const Other: General: Comfortable CVS: RRR Respiratory: clear to auscultation bilaterally. Good respiratory effort Skin: No lesions seen MSK: Tender to palpate bilateral CMCs with squaring present. No synovitis of any joints. Normal range of upper extremities and lower extremities. Assessment & Plan Assessment & Plan (1) Lupus (systemic lupus erythematosus): Comment: In clinical and serological remission without DMARD therapy. Transaminitis resolved on labs from March 2025. Rheumatology history: Previously treated with azathioprine, which was discontinued when she was diagnosed with vaginal cancer. Subsequently, she had upper vaginectomy and hysterectomy status post chemotherapy. She was diagnosed in 2007 with prior history of CVA in 2004, Raynaud's phenomenon, history of proteinuria, photosensitivity, positive ANDRADE, positive anti histone antibody, positive F[employer] polymerase 3 and SSA antibody. HCQ caused photosensitivity rash. 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 Code(s): M32.9 - Systemic lupus erythematosus, unspecified Category: Medical Qualifiers: Systemic lupus erythematosus type: unspecified Systemic lupus erythematosus organ involvement: unspecified Qualified Code(s): M32.9 - Systemic lupus erythematosus, unspecified Plan: Labs for disease monitoring ordered Monitor clinically Return to clinic in 6 months (2) Osteoarthritis of carpometacarpal (CMC) joint of both thumbs: Comment: Clinical diagnosis. Pain is tolerable Code(s): M18.0 - Bilateral primary osteoarthritis of first carpometacarpal joints Category: Medical Plan: She is deferring OT at this time due to being primary caregiver of her father. CMC splints prescribed Try diclofenac gel 1% applied to affected area as needed Return to clinic in 3 months (3) Left knee pain: Comment: Localized chronic pain to medial superior patellar pole for at least 3 months. Resolved. She did not start PT due to having a busy schedule with been primary caregiver to her father. Code(s): M25.562 - Pain in left knee Category: Medical Plan: Monitor clinically Orders: Orders Complete Blood Count Man Dif Today M32.9 - Systemic lupus erythematosus, unspecified Alanine Aminotransferase Today M32.9 - Systemic lupus erythematosus, unspecified Aspartate Amino Transferase Today M32.9 - Systemic lupus erythematosus, unspecified C Reactive Protein Today M32.9 - Systemic lupus erythematosus, unspecified Erythrocyte Sedimentation Rate Today M32.9 - Systemic lupus erythematosus, unspecified Anti DNA DS Antibody Today M32.9 - Systemic lupus erythematosus, unspecified Complement C4 Today M32.9 - Systemic lupus erythematosus, unspecified Creatinine Today M32.9 - Systemic lupus erythematosus, unspecified UA w Microscopic Today M32.9 - Systemic lupus erythematosus, unspecified Protein Creatinine Ratio, Ur Today M32.9 - Systemic lupus erythematosus, unspecified Complement C3 Today M32.9 - Systemic lupus erythematosus, unspecified Medications: New arm brace (Wrist Brace) As directed Bilateral CMC splints custom Dx: Bilateral CMC osteoarthritis 2 ea 0RF Coding Level of Care Code Est Pt Level 4 (48055) Complex EM visit Add On G2211 Diagnoses Systemic lupus erythematosus, unspecified SLE type, unspecified organ involvement status M32.9 Systemic lupus erythematosus type: unspecified Systemic lupus erythematosus organ involvement: unspecified Osteoarthritis of carpometacarpal (CMC) joint of both thumbs M18.0 Left knee pain M25.562
[2025-05-20 13:37] VITALS: BP 120/80; PULSE 79; O2SAT 98; BMI 25.9
--- OUTSIDE RECORDS SUMMARY | 2025-05-20 14:19 | XMS_ITS | Encounter Summary ---
Author Organization [facility] Address [address] [place] [address] Care Team Providers Care Instructional Facilitator Name Role Phone Margy Martinez Primary Care Provider Ruth Diaz MD Unavailable Genesis Traore RN Unavailable Encounter Details Date Type Department Care Team (Late st Contact Info) Description 02/14/2021 Prep for Surgery [facility] IP [address] [place] [address] Jose Lawler MD [address] [facility] [address] [place] [id number] Social History Tobacco Use Types Packs/Day Years Used Date Smoking Tobacco: Former Smokeless Tobacco: Never Comments:quit 1999 Alcohol Use Standard Drinks/Week Comments Not Currently 0 (1 standard drink = 0.6 oz pur e alcohol) quit 06/2020 Comments Unknown Sex and Gender Information Value Date Recorded Sex Assigned at Female 12/21/2022 7:28 AM EST Legal Sex Female 2:13 PM EDT Gender Identity Female 12/21/2022 7:28 AM EST [...] Care Team (Late st Contact Info) Description 07/01/2025 11:20 AM EDT Office Visit [facility] Division of Gynecologic Oncology in [place] [address] [facility] [address] [place] [address] Katey Waller PA-C [address] [facility] [address] [place] [address] documented as of this encounter Visit Diagnoses Not on filedocumented in this encounter Care Teams Instructional Facilitator Relationship Specialty Start Date End Date Margy Martinez PA PCP - General 02/15/21 Ruth Diaz MD [address] [place] [address] [address] [place] [address] Obstetrics and Gynecology 12/05/22 Genesis Traore, RN [address] [facility] [address] [place] [address] Oncology Nurse Navigator Medical Oncology 02/17/23 Jesus Manuel Calvillo Clinician Rheumatology 12/06/22 documented as of this encounter
--- OUTSIDE RECORDS SUMMARY | 2025-05-20 14:19 | XMS_ITS ---
Author Name [facility] Organization Unknown Results Test Name/Text Value Interpretation Date Range Source HBV core Ab SerPl Ql IA NON-REACTIVE Normal 03/28/2025 - [facility] Cholest/HDLc SerPl 2.3 (calc) Normal 03/28/2025 - 5 [facility] Cholest SerPl-mCnc 164.0 mg/dL Normal 03/28/2025 - 200 [facility] LDLc SerPl Calc-mCnc 77.0 mg/dL (calc) Normal 03/28/2025 [facility] NonHDLc SerPl-mCnc 94.0 mg/dL (calc) Normal 03/28/2025 - 130 [facility] HDLc SerPl-mCnc 70.0 mg/dL Normal 03/28/2025 - [facility] EST Trigl SerPl-mCnc 88.0 mg/dL Normal 03/28/2025 - 150 Q [facility] TSH SerPl-aCnc 1.66 mIU/L Normal 03/28/2025 0.4 - 4.[address] HBV surface Ab SerPl IA-aCnc 37.0 mIU/mL Normal 03/28/2025 - [facility] HCV Ab SerPl Ql IA NON-REACTIVE Normal 03/28/2025 - [facility] Glucose SerPl-mCnc 83.0 mg/dL Normal 03/28/2025 65 - 99 [facility] eGFRcr SerPlBld CKD-EPI 2020 77.0 mL/min/1.73m2 Normal 03/28/2025 - [facility] Albumin SerPl-mCnc 4.1 g/dL Normal 03/28/2025 3.6 - 5.1 [facility] ALT SerPl-cCnc 18.0 U/L Normal 03/28/2025 6 - 29 [facility] Sodium SerPl-sCnc 141.0 mmol/L Normal 03/28/2025 135 - 14 6 [facility] CO2 SerPl-sCnc 28.0 mmol/L Normal 03/28/2025 20 - 32 [facility] Chloride SerPl-sCnc 104.0 mmol/L Normal 03/28/2025 98 - 1 10 [facility] Bilirub SerPl-mCnc 0.3 mg/dL Normal 03/28/2025 0.2 - 1.2 [facility] ALP SerPl-cCnc 67.0 U/L Normal 03/28/2025 37 - 153 [facility] Prot SerPl-mCnc 6.9 g/dL Normal 03/28/2025 6.1 - 8.[address] Calcium SerPl-mCnc 9.1 mg/dL Normal 03/28/2025 8.6 - 10.4 [facility] BUN SerPl-mCnc 9.0 mg/dL Normal 03/28/2025 7 - 25 [facility] Creat SerPl-mCnc 0.87 mg/dL Normal 03/28/2025 0.5 - 1.03 [facility] Albumin/Glob SerPl 1.5 (calc) Normal 03/28/2025 1 - 2.5 [facility] AST SerPl-cCnc 23.0 U/L Normal 03/28/2025 10 - 35 [facility] BUN/Creat SerPl SEE NOTE: 03/28/2025 6 - [address] Globulin Ser Calc-mCnc 2.8 g/dL (calc) Normal 03/28/2025 1.9 - 3.7 [facility] Potassium SerPl-sCnc 4.0 mmol/L Normal 03/28/2025 3.5 - 5 .3 [facility] Ferritin SerPl-mCnc 56.0 ng/mL Normal 03/28/2025 16 - 232 [facility] TIBC SerPl-mCnc 267.0 mcg/dL (calc) Normal 03/28/2025 250 - 450 [facility] Iron Satn MFr SerPl 21.0 % (calc) Normal 03/28/2025 16 - 45 [facility] Iron SerPl-mCnc 55.0 mcg/dL Normal 03/28/2025 45 - 160 Q [facility] HBV surface Ag SerPl Ql IA NON-REACTIVE Normal 03/28/2025 - [facility] POC Glucose 82.0 mg/dL Normal 01/11/2025 65 - 99 [facility] HPV E6+E7 mRNA Cvx Ql MADELYN+probe Not Detected Normal 01/11/2025 [facility] Clinical info Normal 01/11/2025 [facility] Proof Press Operator Cvx/Vag Cyto Normal 01/11/2025 [facility] Cytology Cmnt Cvx/Vag Cyto-Imp Normal 01/11/2025 [facility] LMP Start date Normal 01/11/2025 [facility] Stat of Adq Cvx/Vag Cyto-Imp Normal 01/11/2025 [facility] Pathologist Cvx/Vag Cyto Normal 01/11/2025 [facility] Date previous bx Normal 01/11/2025 QU EST Date of previous PAP Normal 01/11/2025 [facility] HPV E6+E7 mRNA Cvx Ql MADELYN+probe Not Detected Normal 01/11/2025 - [facility] Specimen source Cvx/Vag Cyto Normal 01/11/2025 [facility] Cyto Cvx Normal 01/11/2025 [facility] COMMENT Normal 01/11/2025 [facility] Ref Lab Test [id number] Normal 01/11/2025 [facility] CLIENT CONTACT: FIDEL Steiner Normal 01/11/[address] [facility] COMMENT Normal 01/11/2025 [facility] Ref Lab Test Name HPV mRNA E6E7 POST HYST Normal 01/11/2025 [facility] REPORT ALWAYS MESSAGE SIGNATURE Normal 01/11/2025 [facility] Neutrophils/leuk NFr Bld Auto 53.3 % Normal 10/01/2024 [facility] Eosinophil/leuk NFr Bld Auto 5.6 % Normal 10/01/2024 [facility] Lymphocytes/leuk NFr Bld Auto 29.9 % Normal 10/01/2024 [facility] Basophils # Bld Auto 21.0 cells/uL Normal 10/01/2024 0 - 200 [facility] MCV RBC Auto 97.4 fL Normal 10/01/2024 80 - 100 [facility] Lymphocytes # Bld Auto 1226.0 cells/uL Normal 10/01/2024 850 - 3900 [facility] Eosinophil # Bld Auto 230.0 cells/uL Normal 10/01/2024 15 - 500 [facility] MCHC RBC Auto-mCnc 32.6 g/dL Normal 10/01/2024 32 - 36 [facility] Platelet # Bld Auto 292.0 Thousand/uL Normal 10/01/2024 1 40 - 400 [facility] Hct VFr Bld Auto 38.0 % Normal 10/01/2024 35 - 45 [facility] Basophils/leuk NFr Bld Auto 0.5 % Normal 10/01/2024 [facility] Monocytes # Bld Auto 439.0 cells/uL Normal 10/01/2024 200 - 950 [facility] MCH RBC Qn Auto 31.8 pg Normal 10/01/2024 27 - [address] Monocytes/leuk NFr Bld Auto 10.7 % Normal 10/01/2024 [facility] PMV Bld Leopoldo-Kiara 10.5 fL Normal 10/01/2024 7.5 - 12.5 [facility] Neutrophils # Bld Auto 2185.0 cells/uL Normal 10/01/2024 1500 - 7800 [facility] Hgb Bld-mCnc 12.4 g/dL Normal 10/01/2024 11.7 - 15.5 [facility] WBC # Bld Auto 4.1 Thousand/uL Normal 10/01/2024 3.8 - 10 .8 [facility] RDW RBC Auto-Rto 12.7 % Normal 10/01/2024 11 - 15 [facility] RBC # Bld Auto 3.9 Million/uL Normal 10/01/2024 3.8 - 5.1 [facility] TSH SerPl-aCnc 1.51 mIU/L Normal 10/01/2024 0.4 - 4.[address] [facility] Cholest/HDLc SerPl 2.3 (calc) Normal 10/01/2024 - 5 [facility] Cholest SerPl-mCnc 173.0 mg/dL Normal 10/01/2024 - 200 [facility] LDLc SerPl Calc-mCnc 80.0 mg/dL (calc) Normal 10/01/2024 [facility] Trigl SerPl-mCnc 99.0 mg/dL Normal 10/01/2024 - 150 Q [facility] NonHDLc SerPl-mCnc 98.0 mg/dL (calc) Normal 10/01/2024 - 130 [facility] HDLc SerPl-mCnc 75.0 mg/dL Normal 10/01/2024 - [facility] Albumin SerPl-mCnc 4.3 g/dL Normal 10/01/2024 3.6 - 5.1 [facility] Glucose SerPl-mCnc 78.0 mg/dL Normal 10/01/2024 65 - 99 [facility] ALT SerPl-cCnc 23.0 U/L Normal 10/01/2024 6 - 29 [facility] Globulin Ser Calc-mCnc 2.6 g/dL (calc) Normal 10/01/2024 1.9 - 3.7 [facility] Bilirub SerPl-mCnc 0.3 mg/dL Normal 10/01/2024 0.2 - 1.2 [facility] Prot SerPl-mCnc 6.9 g/dL Normal 10/01/2024 6.1 - 8.[address] Creat SerPl-mCnc 0.87 mg/dL Normal 10/01/2024 0.5 - 1.03 [facility] Calcium SerPl-mCnc 9.2 mg/dL Normal 10/01/2024 8.6 - 10.4 [facility] Chloride SerPl-sCnc 104.0 mmol/L Normal 10/01/2024 98 - 1 10 [facility] Potassium SerPl-sCnc 4.1 mmol/L Normal 10/01/2024 3.5 - 5 .3 [facility] BUN SerPl-mCnc 12.0 mg/dL Normal 10/01/2024 7 - [address] BUN/Creat SerPl SEE NOTE: Normal 10/01/2024 6 - [address] ALP SerPl-cCnc 56.0 U/L Normal 10/01/2024 37 - 153 [facility] Sodium SerPl-sCnc 140.0 mmol/L Normal 10/01/2024 135 - 14 6 [facility] Albumin/Glob SerPl 1.7 (calc) Normal 10/01/2024 1 - 2.5 [facility] CO2 SerPl-sCnc 27.0 mmol/L Normal 10/01/2024 20 - 32 [facility] eGFRcr SerPlBld CKD-EPI 2020 77.0 mL/min/1.73m2 Normal 10/01/2024 - [facility] AST SerPl-cCnc 25.0 U/L Normal 10/01/2024 10 - 35 [facility] History of Medication Use Medication Directions Dispensed Refills Start Date End Date Stat pantoprazole (PROTONIX) 40 mg EC tablet 1 tablet (40 mg total). 11/29/2024 active PANTOprazole (PROTONIX) 40 MG EC tablet 1 tablet (40 mg total). 11/29/2024 active DULoxetine (CYMBALTA) [address] capsule Take 1 capsule (60 mg total) by mouth 1 (one) time each day. 07/23/2024 active estradiol (ESTRACE) 0.01 % vaginal cream Insert 2 g into the vagina 2 (two) times a week. 2 times per week 10/12/2023 09/27/20 active amLODIPine (NORVASC) 10 mg tablet 1 tablet (10 mg total). 07/17/2023 active rosuvastatin (CRESTOR) 10 mg tablet TAKE 1 TABLET BY MOUTH EVERY DAY 06/01/2023 active olmesartan (BENICAR) 40 mg tablet TAKE 1 TABLET BY MOUTH EVERY DAY 04/07/2023 active aprepitant (CINVANTI) IVP syringe 130 mg 18 mL 130 mg, Intravenous, at 540 mL/hr, Once, On Mon05/02/23 at 1200, For 1 doseAdminister IVP over 2 minutes, 30 minutes prior to chemotherapy 04/04/2023 05/02/20 completed CISplatin (PLATINOL) 70 mg [...] Intravenous, Administer over 60 Minutes, Once, On Mon05/02/23 at 1200, For 1 dose 04/04/2023 05/02/20 completed sodium chloride 0.9 % with KCl 20 mEq/L (NS-KCL20) infusion (premix) 500 mL/hr, Intravenous, Every 3 hours, First dose on Mon05/02/23 at 1200, For 2 dosesPre-hydration 500ml/hr x1 hr prior to Cisplatin and Post-hydration 500ml/hr x 1 hr after cisplatin 04/04/2023 05/02/20 completed hydrocortisone (ANUSOL-HC) 25 MG suppository INSERT 1 SUPPOSITORY INTO THE RECTUM 2 TIMES A DAY. 03/27/2023 04/03/20 aborted ondansetron (ZOFRAN) 8 MG tablet Take 1 tablet (8 mg total) by mouth 3 times daily (every 8 hours) as needed for nausea or vomiting. 03/13/2023 07/05/20 active QUEtiapine (SEROquel) 25 mg tablet Take 1-2 tablets (25-50 mg total) by mouth every night at bedtime as needed. 03/08/2023 active acetaminophen (TYLENOL) 500 MG tablet Take 2 tablets (1,000 mg total) by mouth 4 times daily (every 6 hours) as needed for mild pain. 12/21/2022 03/13/20 aborted clobetasoL (TEMOVATE) 0.05 % ointment APPLY A THIN LAYER TO THE AFFECTED AREA(S) 2 TIMES PER DAY FOR A WEEK THEN TWICE A WEEK 09/20/2022 active estradioL (ESTRACE) 0.01 % (0.1 mg/gram) vaginal cream INSERT 1 GRAM INTRAVAGINALLY EVERY NIGHT AT BEDTIME X2 WEEKS THEN TWICE WEEKLY THEREAFTER 11/26/2021 active meloxicam (MOBIC) 15 MG tablet Take by mouth. 08/16/2020 active azaTHIOprine (IMURAN) 50 MG tablet 1 tablet 3 (three) times a week on Monday, Monday, Monday. 12/31/2014 active rosuvastatin (Crestor) 10 MG tablet 1 tablet every evening. 11/26/2014 active aspirin 325 mg tablet Take 1 tablet (325 mg total) by mouth. 03/31/20 25 completed quetiapine 25 mg tablet 1 qhs prn 03/31/20 25 completed spironolactone 25 mg tablet Take 1 tablet every day by oral route. 03/31/20 25 completed Imuran 50 mg tablet Take 1 tablet every day by oral route. 10/08/20 24 completed Mobic 15 mg tablet Take 1 tablet every day by oral route. 10/08/20 24 completed clobetasol 0.05 % topical cream APPLY A THIN LAYER TO THE AFFECTED AREA(S) BY TOPICAL ROUTE 2 TIMES PER DAY 10/07/20 24 completed Tila Allergy 180 mg tablet Take 1 tablet every day by oral route. active amlodipine 10 mg tablet TAKE 1 TABLET BY MOUTH ONCE DAILY active aspirin 81 mg capsule Take 1 capsule 3 times a day by oral route. active cetirizine 10 mg capsule Take by oral route. activ e cetirizine 10 mg tablet Take 1 tablet (10 mg total) by mouth daily. active cholecalciferol (vitamin D3) 25 mcg (1,000 unit) tablet Take 1 tablet (1,000 Units total) by mouth daily. active clobetasol 0.05 % topical ointment APPLY A THIN LAYER TO AFFECTED AREA(S) TWICE DAILY FOR A WEEK, THEN TWICE A WEEK active docosahexaenoic acid (dha)-epa 120 mg-180 mg capsule Take 1,000 mg by mouth. active duloxetine 60 mg capsule,delayed release TAKE 1 CAPSULE BY MOUTH ONCE DAILY active estradiol 0.01% (0.1 mg/gram) vaginal cream INSERT 2 GRAMS VAGINALLY TWICE A WEEK active famotidine 20 mg tablet TAKE 1 TABLET BY MOUTH ONCE DAILY AT BEDTIME active olmesartan 40 mg tablet TAKE 1 TABLET BY MOUTH ONCE DAILY active [place] 3 1000 am 1000pm active pantoprazole 40 mg tablet,delayed release TAKE 1 TABLET BY MOUTH ONCE DAILY IN THE MORNING ON AN EMPTY STOMACH active quetiapine 50 mg tablet TAKE 1 TO 2 TABLETS BY MOUTH AT BEDTIME active rosuvastatin 10 mg tablet TAKE 1 TABLET BY MOUTH ONCE DAILY active Slow Fe 137 mg (45 mg iron) tablet,extended release Take by oral route. activ e triamcinolone acetonide 55 mcg nasal spray aerosol spray or apply inside Nose. active aspirin 325 mg EC tablet Take 1 tablet (325 mg total) by mouth. active cetirizine (ZyrTEC) 10 mg tablet Take 1 tablet (10 mg total) by mouth daily. active cetirizine (ZyrTEC) 10 MG tablet Take 1 tablet (10 mg total) by mouth every evening. active cholecalciferol (CHOLECALCIFEROL) 25 MCG (1000 UT) tablet Take 1 tablet (1,000 Units total) by mouth 2 (two) times a day. active cholecalciferol (VITAMIN D-3) 25 mcg (1,000 unit) tablet Take 1 tablet (1,000 Units total) by mouth daily. active duloxetine 60 mg capsule,delayed release TAKE 1 CAPSULE BY MOUTH EVERY DAY TAKE 1 CAPSULE BY MOUTH EVERY DAY completed estradiol 0.01% (0.1 mg/gram) vaginal cream INSERT 1 GRAM INTRAVAGINALLY EVERY NIGHT AT BEDTIME X2 WEEKS THEN TWICE WEEKLY THEREAFTER INSERT 1 GRAM INTRAVAGINALLY EVERY NIGHT AT BEDTIME X2 WEEKS THEN TWICE WEEKLY THEREAFTER completed famotidine (PEPCID) 20 mg tablet Take 1 tablet (20 mg total) by mouth every night at bedtime. active olmesartan 40 mg tablet TAKE 1 TABLET BY MOUTH EVERY DAY TAKE 1 TABLET BY MOUTH EVERY DAY completed omega-3 fatty acids 1,000 mg capsule Take 1,000 mg by mouth. active quetiapine 25 mg tablet TAKE 1-2 TABLETS (25-50 MG TOTAL) BY MOUTH EVERY NIGHT AT BEDTIME NEEDED. TAKE 1-2 TABLETS (25-50 MG TOTAL) BY MOUTH EVERY NIGHT AT BEDTIME NEEDED. completed triamcinolone (NASACORT) 55 mcg nasal inhaler spray or apply inside Nose. active Triamcinolone Acetonide (NASACORT AQ NA) 2 sprays into each nostril every evening. 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 ProblemAct [facility] Multinodular goiter active 2024-10-19 ProblemAct [facility] Basal cell carcinoma of skin active 2018-03-28 ProblemAct [facility] Cervical spondylosis active 2015-05-18 ProblemAct [facility] Malignant tumor of vagina active 2024-10-19 ProblemAct [facility] Hypergammaglobulinemia active 2020-03-18 ProblemAct [facility] Recurrent major depression in full remission active 2024-10-19 ProblemAct [facility] History of procedure active 2022-02-25 ProblemAct [facility] Environmental allergy active 2017-09-26 ProblemAct [facility] Anti-nuclear factor detected active 2015-05-18 ProblemAct [facility] Cerebrovascular accident active 2018-03-28 ProblemAct [facility] Stopped smoking active 2018-03-[address] [facility] Hyperlipidemia active 2018-03-28 ProblemAct [facility] Systemic lupus erythematosus active 2024-10-19 ProblemAct [facility] Generalized osteoarthritis active 2024-10-19 ProblemAct [facility] Raynaud's phenomenon active 2017-02-06 ProblemAct [facility] Essential hypertension active 2024-10-19 ProblemAct [facility] History of cerebrovascular accident active 2024-10-19 ProblemAct [facility] Major depression in remission active 2018-07-26 ProblemAct [facility] Postmenopausal osteopenia active 2024-10-19 ProblemAct [facility] Hypergammaglobulinemia active 2020-03-18 ProblemAct [facility] 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) active ProblemAct [facility] Raynaud's syndrome without gangrene active 2017-02-06 ProblemAct [facility] High grade squamous intraepithelial lesion (HGSIL), grade 3 MINNIE, on biopsy of cervix active 2021-02-14 ProblemAct [facility] BCC (basal cell carcinoma of skin) active 2018-03-28 ProblemAct [facility] CVA (cerebral vascular accident) active 2018-03-28 ProblemAct [facility] 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 2023-03-09 ProblemAct [facility] Vaginal cancer active 2023-02-[address] Vertigo active 2023-04-11 ProblemAct [facility] Lupus active ProblemAct [facility] Hard to intubate active ProblemAct [facility] Vaginal mass active ProblemAct [facility] 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 ProblemAct [facility] Essential hypertension active 2017-09-26 ProblemAct [facility] Multiple thyroid nodules active 2017-08-18 ProblemAct [facility] Sjogren's disease active 2020-03-18 ProblemAct [facility] ANDRADE positive active 2015-05-18 ProblemAct [facility] Chronic fatigue active 2016-06-[address] [facility] DJD (degenerative joint disease) of cervical spine active 2015-05-18 ProblemAct C [facility] Major depression in remission active 2018-07-26 ProblemAct [facility] Disseminated lupus erythematosus active 2015-05-18 ProblemAct [facility] Primary osteoarthritis involving multiple joints active 2015-05-[address] [facility] Atypical squamous cells of undetermined significance on cervical Papanicolaou smear active 2020-12-25 ProblemAct [facility] Vertigo active ProblemAct [facility] Lupus erythematosus active 2011-02-27 ProblemAct [facility] 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 ProblemAct [facility] Depressive disorder active 2011-02-27 ProblemAct [facility] Essential hypertension active 2011-02-27 ProblemAct [facility] Hyperlipidemia active 2012-05-07 ProblemAct [facility] Transient cerebral ischemia active 2003-11-13 ProblemAct [facility] Immunizations Vaccine Date Source Lot Number Status zoster vaccine subunit 12/29/2023 [facility] co mpleted influenza, injectable, quadr ivalent, contains preservative 09/29/2023 [facility] completed influenza, seasonal, injectable 09/29/2023 [facility] completed SARS-COV-2 (COVID-19) vaccin e, mRNA, spike protein, LNP, preservative free, marlon-sucrose, 30 mcg/0.3 mL dose 09/29/2023 [facility] completed zoster vaccine subunit 09/29/2023 [facility] co mpleted Zoster Live 09/29/2023 [facility] completed Pneumococcal conjugate vacci ne 20-valent (PCV20), polysaccharide [id number] conjugate, adjuvant, preservative free 10/10/2022 [facility] comp leted Influenza, injectable, Madin [place] Canine Kidney, preservative free, quadrivalent 09/09/2022 [facility] [id number] completed influenza, live, intranasal, quadrivalent 09/09/2022 [facility] completed Influenza, injectable, quadr ivalent, preservative free 09/28/2021 [facility] [id number] completed SARS-COV-2 (COVID-19) vaccin e, mRNA, spike protein, LNP, preservative free, 30 mcg/0.3mL dose 09/06/2021 [facility] [id number] completed influenza, seasonal, injectable 08/13/2021 [facility] completed SARS-COV-2 (COVID-19) vaccin e, mRNA, spike protein, LNP, preservative free, 30 mcg/0.3mL dose 01/19/2021 [facility] completed SARS-COV-2 (COVID-19) vaccin e, mRNA, spike protein, LNP, preservative free, 30 mcg/0.3mL dose 12/29/2020 [facility] completed tetanus and diphtheria toxoi ds, adsorbed, preservative free, for adult use 09/21/2020 [facility] [id number] completed influenza, injectable, quadr ivalent, contains preservative 08/24/2020 [facility] completed Influenza, injectable, quadr ivalent, preservative free 07/26/2018 [facility] [id number] completed Influenza, injectable, quadr ivalent, preservative free 07/25/2016 [facility] [id number] completed Influenza, injectable, quadr ivalent, preservative free 08/28/2015 [facility]STA [id number] completed tetanus toxoid, reduced diph theria toxoid, and acellular pertussis vaccine, adsorbed 11/03/2010 [facility]ACQU[facility] completed pneumococcal polysaccharide vaccine, 23 valent 01/12/2008 [facility]ACQU[facility] completed tetanus and diphtheria toxoi ds, adsorbed, preservative free, for adult use 09/24/2004 [facility] completed Encounters Encounter Type Encounter Reason Primary Diagnosis Location Date Ambulatory [facility] 03/31/2025 Ambulatory [facility] 03/23/2025 Ambulatory Other specified noninflammatory disorders of vulva and perineum Other specified noninflammatory disorders of vulva and perineum [facility] 03/17/2025 Ambulatory Malignant neoplasm o f vagina Malignant neoplasm of vagina [facility] 03/17/2025 Ambulatory [facility] 01/16/2025 Ambulatory [place] 01/10/2025 Ambulatory Malignant neoplasm o f vagina Malignant neoplasm of vagina [facility] [facility] 01/10/2025 Ambulatory Follow-up Gastro-esophagea l reflux disease without esophagitis [facility] 12/31/2024 Ambulatory 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 [place] 12/17/2024 Ambulatory [facility] 10/21/2024 Ambulatory [facility] 08/28/2024 Ambulatory 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 [place] 07/31/2024 Ambulatory 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 [facility] 07/31/2024 Ambulatory Malignant neoplasm o f vagina Malignant neoplasm of vagina [facility] 04/10/2024 Ambulatory Malignant neoplasm o f vagina Malignant neoplasm of vagina [place] 04/10/2024 Ambulatory Malignant neoplasm o f vagina Malignant neoplasm of vagina [place] 01/10/2024 Ambulatory Malignant neoplasm o f vagina Malignant neoplasm of vagina [place] 01/10/2024 Ambulatory 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 [place] 10/11/2023 Ambulatory Malignant neoplasm o f vagina Malignant neoplasm of vagina [place] [facility] Malignant neoplasm o f vagina Malignant neoplasm of vagina [place] 07/05/2023 Ambulatory [place] 06/21/2023 Ambulatory [facility] 05/22/2023 Ambulatory [facility] 05/19/2023 Ambulatory [facility] 05/17/2023 Ambulatory [facility] 05/15/2023 Ambulatory [facility] 05/12/2023 Ambulatory [facility] 05/05/2023 Ambulatory [facility] 05/05/2023 Ambulatory Malignant neopla sm of vagina [facility] 05/04/2023 Ambulatory Malignant neopla sm of vagina [facility] 05/03/2023 Ambulatory Malignant neopla sm of vagina [facility] 05/02/2023 Ambulatory Malignant neopla sm of vagina [facility] 05/02/2023 Ambulatory Malignant neopla sm of vagina [facility] 05/01/2023 Ambulatory Malignant neopla sm of vagina [facility] 05/01/2023 Ambulatory Malignant neopla sm of vagina [facility] 04/28/2023 Ambulatory Malignant neopla sm of vagina [facility] 04/27/2023 Ambulatory Malignant neopla sm of vagina [facility] 04/26/2023 Ambulatory Malignant neopla sm of vagina [facility] 04/25/2023 Ambulatory Malignant neopla sm of vagina [facility] 04/25/2023 Ambulatory Malignant neopla sm of vagina [facility] 04/24/2023 Ambulatory Malignant neopla sm of vagina [facility] 04/24/2023 Ambulatory Malignant neopla sm of vagina [facility] 04/21/2023 Ambulatory Malignant neopla sm of vagina [facility] 04/20/2023 Ambulatory Malignant neopla sm of vagina [facility] 04/19/2023 Ambulatory Malignant neopla sm of vagina [facility] 04/18/2023 Ambulatory Malignant neopla sm of vagina [facility] 04/18/2023 Ambulatory 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 [facility] 04/17/2023 Ambulatory Malignant neopla sm of vagina [facility] 04/17/2023 Ambulatory Malignant neopla sm of vagina [facility] 04/14/2023 Ambulatory Malignant neopla sm of vagina [facility] [employer] 04/13/2023 Ambulatory Malignant neopla sm of vagina [facility] 04/12/2023 Ambulatory Malignant neopla sm of vagina [facility] 04/11/2023 Ambulatory Malignant neopla sm of vagina [place] 04/11/2023 Ambulatory Other specified noninflammatory disorders of vagina [facility] 04/11/2023 Ambulatory Malignant neopla sm of vagina [facility] 04/07/2023 Ambulatory Tinnitus, unspec ified ear [facility] 04/07/2023 Ambulatory Malignant neopla sm of vagina [facility] [employer] 04/06/2023 Ambulatory Malignant neopla sm of vagina [place] 04/05/2023 Ambulatory Malignant neopla sm of vagina [place] 04/04/2023 Ambulatory Malignant neopla sm of vagina [place] 04/04/2023 Ambulatory Malignant neopla sm of vagina [place] 04/03/2023 Ambulatory Malignant neopla sm of vagina [facility] 04/03/2023 Ambulatory Malignant neopla sm of vagina [place] 03/31/2023 Ambulatory Malignant neopla sm of vagina [place] 03/30/2023 Ambulatory [place] 03/29/2023 Ambulatory Malignant neopla sm of vagina [place] 03/29/2023 Ambulatory [facility] 03/16/2023 Ambulatory Encounter for screening for malignant neoplasm of colon [facility] [employer] 03/14/2023 Ambulatory Malignant neopla sm of vagina [place] 03/13/2023 Ambulatory Nausea [facility] [employer] 03/13/2023 Ambulatory Carcinoma in sit u of vagina [place] 03/09/2023 Ambulatory [facility] 02/28/2023 Ambulatory [place] 02/28/2023 Ambulatory [place] 02/21/2023 Ambulatory Malignant neopla sm of vagina [place] 02/17/2023 Ambulatory Malignant neopla sm of vagina [place] 02/16/2023 Ambulatory Carcinoma in sit u of vagina [place] 02/09/2023 Ambulatory Carcinoma in sit u of vagina [place] 02/01/2023 Ambulatory Failed or diffic ult intubation, subsequent encounter [place] 01/26/2023 Ambulatory Encounter for ot her preprocedural examination [place] 01/18/2023 Ambulatory Carcinoma in sit u of vagina [place] 01/10/2023 Ambulatory Carcinoma in sit u of vagina [place] 12/30/2022 Ambulatory Carcinoma in sit u of cervix, unspecified [place] 12/21/2022 Ambulatory Encounter for ot her preprocedural examination [place] 12/14/2022 Ambulatory high grade squam ous intraepithelial lesion, severe dysplasia [place] 12/06/2022 Ambulatory Unspecified abno rmal cytological findings in specimens from vagina [place] 12/05/2022 Ambulatory [facility] 11/03/2022 [facility]ulatory [facility] 09/20/2022 Ambulatory Other organ or s ystem involvement in systemic lupus erythematosus [facility] 07/19/2022 Ambulatory [facility] 08/20/2021 Care Team Organization Name Specialty Phone Email Start Date End Da te [facility] 03/17/2025 04/16/2025 [facility] 01/22/2025 [facility] 025 [facility] 025 [facility] 10/29/2024 025 [facility] 08/28/2024 [place] LEIGHA MAZARIEGOS Primary [facility] 12/08/2022 025 [facility] 12/05/2022 12/05/2022 [facility] 09/21/2022 [facility] 07/19/2022 09/0 04/2022 [facility] 07/19/2022 [facility] 08/20/2021 09/20/2022 [facility] 08/05/2021 07/01/2024
--- OUTSIDE RECORDS SUMMARY | 2025-05-20 14:20 | XMS_ITS | Clinical Summary ---
Author Organization [facility] Address [address] [place] [address] Care Team Providers Care Chain Maker Hand Name Role Phone Leigha Mazariegos Primary Care Provider Allergies Active Allergy Reactions [...] Problem Noted Date Diagnosed Date Vaginal cancer ([facility] V24, [facility] V28) 2022 Carcinoma in situ of uterine cervix 08/04/2020 Sjogren's disease ([facility] V24) 03/18/2020 Hypergammaglobulinemia 03/18/2020 Major depression in remission ([facility] V24) 07/14 BCC (basal cell carcinoma of skin) 03/28/2018 Overview (01/08/2024): Right Leg 2008 Left Leg 2015 CVA (cerebral vascular accident) ([facility] V24, C MS/HCC V28) 03/28/2018 Overview (01/08/2024): Idiopathic 09/17 Medial cortex left occipital lobe, posterior left frontal lobe Hyperlipidemia 03/28/2018 Essential hypertension 09/26/2017 Multiple thyroid nodules 08/18/2017 Overview (01/08/2024): Benign appearing cystic subcentimeter thyroid nodules, stable on ultrasound 06/10/2014 to 08/18/2017, 09/24/19 Recheck 1 year Raynaud's phenomenon without gangrene 02/06/2017 Chronic fatigue 06/06/2016 ANDRADE positive 05/18/2015 Disseminated lupus erythematosus ([facility] V24, C MS/HCC V28) 05/18/2015 DJD (degenerative joint disease) of cervical spi ne 05/18/2015 Primary osteoarthritis involving multiple joints 05/18/2015 Immunizations Name Administration Dates Next Due COVID-19 (TipTap/Comirnaty) 12yo and older 09/29/2023 Influenza Quadravalent, MDCK [...] (FluMist) 2yo to less than 50yo 09/09/2022 TipTap SARS-CoV-2 COVID-19, mRNA, LNP-S, preservative free 01/19/2021,12/29/2020 [...] hx polyps; Surgeon: Prince Gray MD; Location: [facility]; Service: Gastroenterology; Laterality: N/A; Medical History Medical History Date Comments Stroke (CMS/HCC V24, CMS/HCC V28) DX:Stroke (HCC);COMMENT:2004 Lupus DX:Lupus;COMMENT :2007 Family History Medical History [...] 2024 09/29/2023, 09/06/2021, 01/19/2021, Additional history exists Depression Screening 10/04/2024 10/04/2023 Hypertension/CHF/CAD Annual BMP Blood Test 06/27/2025 06/27/2024, 06/14/2024, 09/27/2023, Additional history exists Influenza Vaccine (#1) 2025 3, 09/29/2023, 09/09/2022, Additional history exists Cervical Cancer Screening: HPV 09/20/2027 09/20/2022 Cholesterol Screening (Lipid Panel) 10/03/2027 10/03/2022, 10/03/2022 DTaP,Tdap,and Td Vaccines (4 - Td or Tdap) 09/21/2030 09/21/2020, 11/03/2010, 09/24/2004 Colorectal Cancer Screening: Colonoscopy 03/14/2033 03/14/2023, 12/14/2020 RSV Immunization Adult Patients (1 - 1-dose 75+ series) 2041 Pneumococcal Vaccine: 50+ Years Completed 10/10/2022, 01/12/2008 Hepatitis C Screening Completed [...] Health Maintenance Results * Depression Screening (10/04/2023) [facility] Depression Screening abstracted [facility] HEALTH MAINTENANCE Final Result * Annual BMP Blood Test (09/27/2023) [facility] Annual BMP Blood Test abstracted [facility] HEALTH MAINTENANCE Final Result * Hepatitis C Screening (09/27/2023) [facility] Hepatitis C Screening abstracted Result [facility] HEALTH MAINTENANCE Final Result * Lipid panel (10/03/2022) [facility] LDL/HDL Ratio 2 <=5 Triglycerides 68 <=150 mg/dL Cholesterol 193 <=200 mg/dL HDL 91 >=50 mg/dL LDL Cholesterol 87 <=100 mg/dL Blood Venous blood specimen / Unknown Result [facility] LAB BLOOD ORDERABLES Patti l Result * Cervical Cancer Screening: HPV (09/20/2022) [facility] Cervical Cancer Screening: HPV no interpretation , abstracted Result [facility] HEALTH MAINTENANCE Final Result * Colonoscopy (12/14/2020) [facility] Colonoscopy no interpretation , abstracted Anatomical Region Laterality Modality Other Result [facility] HEALTH MAINTENANCE Final Result * MAMMOGRAM SCREENING [...] your patient to us, James Monroe MD [id number] (Electronically Signed - 12/28/2018 09:18) Copy: CYNTHIA MORROW MD [facility] [address] [facility] [address] [place] [address] LEIGHA MAZARIEGOS PA-C [facility] [address] [place] [address] ( Procedure Note Historical, Radiology Results, MD - 11/17/2022 Ordering Provider: SELF, REFER HISTORY: [...] patients personal breast tissue composition as [facility] law. BIRADS Category 2: Benign Thank you for referring your patient to us, James Monroe MD [id number] (Electronically Signed - 12/28/2018 09:18) Copy: CYNTHIA MORROW MD [facility] [address] [place] [address] ( LEIGHA MAZARIEGOS PA-C [facility] [address] [place] [address] ( us Radiology Results Historical IMG BI PROCEDURE S Final Result from Last 3 Months or Most Recently Relevant to Health Maintenance Insurance MEDICARE [facility]) Care Teams Chain Maker Hand Relationship Specialty Start Date End Date Leigah Mazariegos PA [address] [place] [id number] PCP - General Physician Sleep Lab Technologist 05/18/15
--- OUTSIDE RECORDS SUMMARY | 2025-05-20 14:20 | XMS_ITS | Clinical Summary ---
Author Organization [facility] Address [address] [place] [address] Care Team Providers Care Public Address Announcer Name Role Phone Margy Martinez PA-C Primary [...] (325 mg total) by mouth. 0 Active Kirvin-3 Fatty Acids (Fish Oil) 1000 MG CAPS [...] 73 05/14/2024 2:46 PM EDT Temperature 36.2 C (97.2 F) 05/14/2024 2:46 PM EDT Respiratory Rate 14 09/07/2015 11:55 AM EDT [...] 01/19/2021, Additional history exists Depression Screening 10/04/2024 10/04/2023, 10/03/2022, 09/28/2021, Additional history exists Preventative Health Evaluation 10/04/2024 10/04/2023, 09/28/2021, 09/21/2020, Additional history exists Breast Cancer Screening (Mammogram) 11/29/2024 11/29/2022, 11/24/2021, 07/07/2020, Additional history exists Influenza Vaccine (#1) 2025 3, 09/29/2023, 09/09/2022, Additional history exists Cervical Cancer Screening (Pap Smear) 09/20/2025 09/20/2022, 08/20/2021 DTap / Tdap / Td (3 - Td or Tdap) 09/21/2030 09/21/2020, 11/03/2010, 09/24/2004 Colon Cancer Screening (Colonoscopy) 12/14/2030 12/14/2020, 09/07/2015 Pneumococcal Vaccine Completed 10/10/2022, 01/12/20 08 Hepatitis C Screening Completed 09/27/2023 Hepatitis B Vaccines Discontinued RSV Ped < 20 months Aged Out No longe r eligible based on patient's age to complete this topic Advance Directives For more information, please contact: [phone] Latest Code Status on File Code Status Date Activated Date Inactivated Comments Full Code 09/07/2015 11:32 AM 09/07/2015 6:36 PM Th is code status was ascertained in the following way: discussion with patient. Care Teams Public Address Announcer Relationship Specialty Start Date End Date Margy Martinez PA-C PCP - General Physician Greenhouse Assistant 05/18/15
--- OUTSIDE RECORDS SUMMARY | 2025-05-20 14:20 | XMS_ITS | Clinical Summary ---
Author Organization [employer] [facility] Address [address] [place] [id number] Care Team Providers Care Compliance Engineer Name Role Phone Margy Martinez NP Primary Care Provider [phone] Allergies Active Allergy Reactions Criticality Noted Date [...] (one) time each day. 020 Active omega 0-ssm-hbj-fish oil 1,000 mg (120 mg-180 mg) capsule [...] other organ involvement, unspecified SLE type (CMS/HCC) ([facility]),Sjogren's syndrome with keratoconjunctivitis sicca ([facility]) Take 1 tablet (50 mg total) by mouth 1 (one) time each day. 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 Raynaud's disease without gangrene 03/18/2020 Sjogren's disease 03/18/2020 Systemic lupus erythematosus ([facility]) 0 Immunizations Immunization Administration Dates Next Due [...] season) 2024 09/06/2021, 01/19/2021, 12/29/2020 Influenza Vaccine (#1) 2025 2, 08/13/2021, 08/24/2020, Additional history exists Tdap and Td Vaccines Adult 09/21/203009/21, 11/03/2010, 09/24/2004 Colonoscopy 03/14/2033 03/14/2023, 12/17/2020 Colorectal Cancer Screening 03/14/2033 Sigmoidoscopy 03/14/2033 03/14/2023 HIB Vaccines Aged Out No longer eligi [...] to complete this topic Insurance MEDICARE [employer] Care Teams Compliance Engineer Relationship Specialty Start Date End Date Margy Martinez NP [address] [place] [address] [address] [place] [address] PCP - General 03/17/20
== END 2025-05-20 14:22 | disposition home or self-care (01) ==
LOC: HO.RHES 13:36
PROVIDERS: PCP Physician Assistant Medical; Visit Provider Internal Medicine Rheumatology
DX: M32.9 Systemic lupus erythematosus, unspecified (principal); M18.0 Bilateral primary osteoarthritis of first carpometacarpal joints; M25.562 Pain in left knee
CPT/HCPCS: 99214; G2211

== ENCOUNTER 2025-05-20 13:36 | Outpatient (REF) | payer MEDICARE, SELFPAY ==
[2025-05-20 15:20] LABS: Baso%MD 0.7 %; Eos%MD 6.0 %; Hematocrit 38.9 % (37.0-47.0); Hemoglobin 12.9 g/dl (12.0-16.0); IG%MD 1.1 %; Lymph%MD 33.0 %; Mean Corpuscular HGB Conc 33.2 g/dl (31.0-35.0); Mean Corpuscular Hemoglobin 30.8 pg (27.0-33.0); Mean Corpuscular Volume 92.8 fL (80.0-98.0); Mono%MD 10.0 %; NRBC Abs Auto 0.000 X10*3/uL (0.0-0.012); NRBC Pct Auto 0.0 /100WBC (0.0-0.2); Neut%MD 49.2 %; Platelet Count 279 X10*3/uL (160-400); Red Blood Count 4.19 X10*6/uL (4.20-5.50); White Blood Count 6.1 X10*3/uL (4.8-10.8)
[2025-05-20 16:54] LABS: Basophils Abs Manual 0.1 X10*3/uL (0.0-0.2); Basophils Percent Manual 1 % (0-2); Eosinophils Absolute Manual 0.5 X10*3/uL (0.0-0.4); Eosinophils Percent Manual 8 % (0-4); Lymphocytes Absolute Manual 2.2 X10*3/uL (1.2-4.9); Lymphocytes Percent Manual 36 % (20-40); Monocytes Absolute Manual 0.2 X10*3/uL (0.1-1.2); Monocytes Percent Manual 4 % (2-11); Neutrophils Percent Manual 51 % (45-73)
[2025-05-20 16:56] LABS: Band Neutrophils Percent 0 % (3-5); Neutrophils Absolute Manual 3.1 X10*3/uL (2.0-8.3); RBC Morphology NORMAL
[2025-05-20 17:24] LABS: Appearance Urine Turbid; Glucose Urine UA Negative (Negative); PH 6.0 (5.0-9.0); Specific Gravity - Urine 1.025 (1.005-1.025)
[2025-05-20 17:53] LABS: Protein/Creatinine Ratio, Ur 0.07 (<0.2); Total Protein Urine Random 16 mg/dL (<12)
[2025-05-20 17:58] LABS: Alanine Aminotransferase 34 U/L (0-31); Aspartate Amino Transferase 34 U/L (5-31); Estimated Glomerular Filt Rate > 60
== END 2025-05-20 13:37 | disposition home or self-care (01) ==
LOC: HO.HKASLDS 13:36
PROVIDERS: PCP Physician Assistant Medical; Visit Provider Internal Medicine Rheumatology
DX: M18.0 Bilateral primary osteoarthritis of first carpometacarpal joints (principal); M32.9 Systemic lupus erythematosus, unspecified; Z79.60 Long term (current) use of unspecified immunomodulators and immunosuppressants; Z01.84 Encounter for antibody response examination
CPT/HCPCS: 36415; 81001; 82565; 82570; 84156; 84450; 84460; 85007; 85027; 85652; 86140; 86160; 86225; 99212